=== PATIENT | female | born 1940 | race Caucasian/White ===

== ENCOUNTER 2016-09-20 13:36 | Observation (INO) | payer MEDICARE ==
--- NOTE | 2016-09-20 13:45 | ED.PDOC ---
History of Present Illness - General Chief Complaint: Fever Stated Complaint: Fever, possible dehydration Time Seen by Provider: 09/20/16 13:44 Source: EMS notes reviewed, family Exam Limitations: clinical condition - History of Present Illness Initial Comments: Sonia Cavazos 76 y/o female brought by ems after family called up that she was found to be lethargic and febrile this am after family members came to visit her this am.Ferdinand her caregiver took her [id number].Family stated that she was doing fine yesterday when they went to her house no observe nausea , vomiting but she stated that she was just stating had cough yesterday afternoon and felt cold. Timing/Duration: 4-6 hours Severity: moderate Improving Factors: nothing Worsening Factors: nothing Associated Symptoms: cough, fever/chills Allergies/Adverse Reactions: Allergies Codeine Allergy (Verified 06/17/14 13:02) Sulfa Antibiotics Allergy (Verified 06/17/14 13:02) Morphine Adverse Reaction (Verified 09/20/16 14:19) Other Makes patient "crazy" Home Medications: Ambulatory Orders Carvedilol [Coreg] 25 mg PO BID 09/02/12 Insulin Glargine [Lantus] 20 unit SC HS 09/02/12 Lisinopril 40 mg PO BID 09/02/12 Omeprazole [Prilosec] 20 mg PO BID 09/02/12 Venlafaxine Xr [Effexor Xr] 75 mg PO DAILY 09/02/12 HYDROcodone 10MG/APAP 325MG [[place] 10/325] 1 tab PO Q6HR PRN 06/17/14 Albuterol Sulfate Nebs [Proventil Nebs] 2.5 mg INH BID 09/20/16 Aspirin [Aspirin EC Low Dose] 81 mg PO DAILY 09/20/16 Pregabalin [Lyrica] 50 mg PO DAILY 09/20/16 Probiotic Product [Probiotic-10 Ultimate] 1 cap PO DAILY 09/20/16 fentaNYL PATCH 25 MCG/HR [Duragesic Patch 25 MCG/HR] 25 mcg TD Q72H 09/20/16 Review of Systems - Review of Systems Constitutional: States: see HPI, fever EENTM: States: no symptoms reported Respiratory: States: no symptoms reported Cardiology: States: no symptoms reported Gastrointestinal/Abdominal: States: no symptoms reported Genitourinary: States: no symptoms reported Musculoskeletal: States: back pain - chronic Skin: States: no symptoms reported Neurological: States: other - lethargic Endocrine: States: no symptoms reported Hematologic/Lymphatic: States: no symptoms reported Past Medical History (General) - Patient Medical History Hx Seizures: No Hx Stroke: No Hx Asthma: No Hx of COPD: No Hx Cardiac Disorders: No Hx Congestive Heart Failure: No Hx Pacemaker: No Hx Hypertension: Yes Hx Diabetes: Yes Hx Gastroesophageal Reflux: Yes Hx MRSA: No Surgical History: appendectomy, other - hysterectomy - Vaccination History Hx Tetanus, Diphtheria Vaccination: No Hx Influenza Vaccination: No Hx Pneumococcal Vaccination: No - Social History Hx Tobacco Use: Yes Hx Alcohol Use: No Hx Substance Use: No Hx Substance Use Treatment: No Hx Depression: No Hx Physical Abuse: No Hx Emotional Abuse: No - Activities of Daily Living Patient Lives Alone: Yes Grooming Ability: Standby Assistance Eating (Feeding) Ability: Standby Assistance Toileting Ability: Standby Assistance - Female History Patient : No Family Medical History - Family History Mother Family History: No Known Name: Aries Cavazos Age (years): 53 Living Status: Hx Family Asthma: No Hx Family Congestive Heart Failure: No Hx Family Hypertension: No Hx Family Stroke: No Hx Cardiac Disease: No Hx Family Diabetes: No Hx Family Cancer: No Physical Exam - Physical Exam General Appearance: No apparent distress, Lethargic Eye Exam: bilateral normal Ears, Nose, Throat: hearing grossly normal, normal ENT inspection, normal pharynx Neck: non-tender, full range of motion, supple Respiratory: chest non-tender, lungs clear, normal breath sounds Cardiovascular/Chest: normal peripheral pulses, regular rate, rhythm, no edema, no murmur Peripheral Pulses: radial,right: 2+, radial,left: 2+ Gastrointestinal/Abdominal: normal bowel sounds, non tender, soft, no organomegaly Back Exam: normal inspection, no CVA tenderness, no vertebral tenderness Extremity: normal range of motion, non-tender, normal inspection, no pedal edema , no calf tenderness Neurologic: no motor/sensory deficits, oriented x 3, other - lethargic Skin Exam: normal color Lymphatic: no adenopathy Progress - Results/Orders Results/Orders: Vital Signs - 24 hr 09/20/16 13:43 Temperature 101.7 F H Pulse Rate [ 75 Right Radial] Respiratory 18 Rate Blood Pressure 183/79 [Left Arm] O2 Sat by Pulse 97 Oximetry 09/20/16 13:47 Sodium Chloride 0.9% 1000ML [Ns 1000 ml] 1,000 ml IVS .QD Laboratory Results WBC 8.6 K/mm3 (4.8-10.8) 09/20/16 14:07 RBC 4.63 M/mm3 (4.20-5.40) 09/20/16 14:07 Hgb 12.7 gm/dL (12.0-16.0) 09/20/16 14:07 Hct 37.9 % (36.0-47.0) 09/20/16 14:07 MCV 81.9 fl (81.0-99.0) 09/20/16 14:07 MCH 27.3 pg (27.0-31.0) 09/20/16 14:07 MCHC 33.4 g/dL (33.0-37.0) 09/20/16 14:07 RDW 15.6 % (11.5-14.5) H 09/20/16 14:07 Plt Count 211 K/mm3 (130-400) 09/20/16 14:07 MPV 7.8 fl (7.40-10.4) 09/20/16 14:07 Absolute Neuts (auto) 6.80 K/uL (1.8-6.8) 09/20/16 14:07 Absolute Lymphs (auto) 1.30 K/uL (1.0-3.4) 09/20/16 14:07 Absolute Monos (auto) 0.40 K/uL (0.2-0.8) 09/20/16 14:07 Absolute Eos (auto) 0.00 K/uL (0.0-0.4) 09/20/16 14:07 Absolute Basos (auto) 0.10 K/uL (0.0-0.1) 09/20/16 14:07 Neutrophils % 79.0 % (42.0-78.0) H 09/20/16 14:07 Lymphocytes % 14.8 % (20.0-50.0) L 09/20/16 14:07 Monocytes % 4.9 % (2.0-9.0) 09/20/16 14:07 Eosinophils % 0.4 % (1.0-5.0) L 09/20/16 14:07 Basophils % 0.9 % (0.0-2.0) 09/20/16 14:07 Sodium 133 mmol/L (135-145) L 09/20/16 14:07 Potassium 3.7 mmol/L (3.6-5.0) 09/20/16 14:07 Chloride 98 mmol/L (101-111) L 09/20/16 14:07 Carbon Dioxide 27 mmol/L (21-31) 09/20/16 14:07 Anion Gap 11.7 (12-18) L 09/20/16 14:07 BUN 8 mg/dL (7-18) 09/20/16 14:07 Creatinine 0.71 mg/dL (0.6-1.3) 09/20/16 14:07 BUN/Creatinine Ratio 11.3 (10-20) 09/20/16 14:07 Random Glucose 142 mg/dL (70-105) H 09/20/16 14:07 Serum Osmolality 267.1 mOsm/L (275-295) L 09/20/16 14:07 Lactic Acid 0.9 mmol/L (0.5-2.2) 09/20/16 14:07 Calcium 9.2 mg/dL (8.4-10.2) 09/20/16 14:07 Total Bilirubin 0.4 mg/dL (0.2-1.0) 09/20/16 14:07 AST 21 IU/L (10-42) 09/20/16 14:07 ALT 12 IU/L (10-60) 09/20/16 14:07 Alkaline Phosphatase 63 IU/L (42-121) 09/20/16 14:07 Serum Total Protein 7.9 gm/dL (6.4-8.2) 09/20/16 14:07 Albumin 4.3 g/dl (3.2-5.5) 09/20/16 14:07 Globulin 3.6 gm/dL (2.3-3.5) H 09/20/16 14:07 Albumin/Globulin Ratio 1.2 (1.1-1.9) 09/20/16 14:07 Urine Color Yellow (Yellow) 09/20/16 14:50 Urine Appearance Clear (Clear) 09/20/16 14:50 Urine pH 8.5 (4.5-7.8) H 09/20/16 14:50 Ur Specific [place] 1.020 (1.005-1.030) 09/20/16 14:50 Urine Protein 30 mg/dL 09/20/16 14:50 Urine Glucose (UA) Negative mg/dL (Negative) 09/20/16 14:50 Urine Ketones Negative mg/dL (NEGATIVE) 09/20/16 14:50 Urine Blood Trace-intact (Negative) H 09/20/16 14:50 Urine Nitrite Negative 09/20/16 14:50 Urine Bilirubin Negative (NEGATIVE) 09/20/16 14:50 Urine Urobilinogen 0.2 mg/dL (0.2-1.0) 09/20/16 14:50 Ur Leukocyte Esterase Negative (Negative) 09/20/16 14:50 Urine RBC 0-1 /hpf 09/20/16 14:50 Urine WBC 0 /hpf 09/20/16 14:50 Ur Epithelial Cells 0 /hpf 09/20/16 14:50 Amorphous Sediment 1+ 09/20/16 14:50 Urine Bacteria 0 09/20/16 14:50 - EKG/XRAY/CT EKG: Sinus, LVH Comments: heart rate 72 XRAY: chest - right mid lobe atelectasis/or infiltrate CT Ordered: Yes - head-rt. mastoid effusion no acute hemorrhage or/infarct Departure - Departure Clinical Impression: Transient alteration of awareness, Fever and chills, Diabetes 1.5, managed as type 1 Time of Disposition: 15:40 - d/w Mauri Kan ANP/hospitalist Disposition: Admit Patient Condition: Fair Departure Forms: Patient Portal Self Enrollment Referrals: Oliverio Estrada MD [Primary Care Provider] - 1-2 Weeks Home Medications: Ambulatory Orders Carvedilol [Coreg] 25 mg PO BID 09/02/12 Insulin Glargine [Lantus] 20 unit SC HS 09/02/12 Lisinopril 40 mg PO BID 09/02/12 Omeprazole [Prilosec] 20 mg PO BID 09/02/12 Venlafaxine Xr [Effexor Xr] 75 mg PO DAILY 09/02/12 HYDROcodone 10MG/APAP 325MG [[place] 10/325] 1 tab PO Q6HR PRN 06/17/14 Albuterol Sulfate Nebs [Proventil Nebs] 2.5 mg INH BID 09/20/16 Aspirin [Aspirin EC Low Dose] 81 mg PO DAILY 09/20/16 Pregabalin [Lyrica] 50 mg PO DAILY 09/20/16 Probiotic Product [Probiotic-10 Ultimate] 1 cap PO DAILY 09/20/16 fentaNYL PATCH 25 MCG/HR [Duragesic Patch 25 MCG/HR] 25 mcg TD Q72H 09/20/16
--- NOTE | 2016-09-20 14:04 | RAD ---
History: Fever. Chest x-ray: AP portable film is obtained and compared with 2015 study. Contour of the heart and mediastinum is within normal limits. Questioned minimal atelectasis versus early infiltrate right midlung. No significant pleural effusion. Diffuse osteopenia. IMPRESSION: Questioned minimal atelectasis or early infiltrate right midlung. Follow-up film as indicated clinically. Electronically signed by: Lisette Michael MD 09/20/2016 2:04 PM CDT Workstation: [id number]
--- NOTE | 2016-09-20 14:28 | CT ---
EXAM DESCRIPTION: Head CLINICAL HISTORY: lethargic COMPARISON: None TECHNIQUE: Noncontrast transaxial CT images of the head are obtained from base to vertex. Images are moderately degraded by patient motion artifact despite repeat imaging limiting detailed evaluation. This exam was performed according to our departmental dose-optimization program, which includes automated exposure control, adjustment of the mA and/or kV according to patient size and/or use of iterative reconstruction technique. FINDINGS: The midline structures are not displaced. Sulci are age-appropriate. There are areas of decreased attenuation in the periventricular white matter and the white matter of the centrum semiovale. There is no evidence of mass, mass-effect, hydrocephalus, or acute intracranial hemorrhage. No abnormal extra axial fluid collection is seen. Bone windows show no evidence of depressed skull fracture. The visualized paranasal sinuses are unremarkable. Fluid-filled opacification of right mastoid air cells is seen. IMPRESSION: 1. Age-appropriate atrophy with evidence of old small vessel ischemic type changes seen. 2. No acute abnormality is seen on noncontrast CT of the head. 3. Limited exam secondary to patient motion artifact. 4. Right mastoid effusion. Electronically signed by: Hema Gutiérrez MD 09/20/2016 2:27 PM CDT
[2016-09-20] MEDS: SODIUM CHLORIDE 0.9% 1000ML 1,000 ML IVS PRN (14:37)
[2016-09-20] MEDS ORDERED: ACETAMINOPHEN SUPPOSITORY 650 MG PR ONE (14:38)
--- NOTE | 2016-09-20 15:57 | HP ---
SUPERVISING PHYSICIAN: Siva Webb M.D. CHIEF COMPLAINT: Fever and dehydration. HISTORY OF PRESENT ILLNESS: Ms. Cavazos is a 76 year-old female patient that was brought to the Emergency Department via EMS after family called up and found that the patient was lethargic and running a fever this morning. A family member came to visit her this AM and the granddaughter, the caregiver, took her fasting blood sugar that was 140. Family notes that she had been doing well, was in her normal state of health yesterday when they went to check on her and noted that she had no complaints. No nausea or vomiting but stated that she started having a cough late in the afternoon and felt cold. In the Emergency Department, the patient was found to be quite obtunded at times but arousable. Laboratory studies showed a normal white count at 8.6 with a left shift noted. Chemistries showed a low sodium at 133 with BUN 8, creatinine 0.79, glucose 142. Liver functions showed to be within normal limits. Urinalysis showed just a trace of intact blood, otherwise was within normal limits. Her vital signs in the Emergency Department on arrival she had a temperature of 101.7. She was given Tylenol which did result in the temperature returning to normal. She was seen to be stable. Blood pressure was 160/72. She was satting 96% with a heart rate of 70. She did have a history of chronic back pain and takes [place] on a regular basis 10/325, one usually every 4 to 6 hours as well as she has a Fentanyl patch at 25 mcg. The patient remained lethargic in the Emergency Department so a CT of the head was completed as well as a chest x-ray and per radiology interpretation on the CT of the head without contrast there was note of age-appropriate atrophy with evidence of small vessel ischemic changes with no acute abnormality seen. There was note of a right mastoid effusion. Chest x-ray showed questionable minimal atelectasis or an early infiltrate within the right mid lung. The patient had similar episodes in the past of being lethargic with previous hospitalization. Given the patient's history and current state of lethargy, the patient was admitted to the Medical/Surgical floor for observation to further evaluate her mentation state changes and to attempt to correct her hyponatremia as well as provide some fluids for possible dehydration and further evaluation of the fever with no obvious source of infection identified at time of admission. She was admitted in stable condition. PAST MEDICAL HISTORY: 1. Type 2 diabetes mellitus insulin dependent. 2. Back pain, chronic on both Fentanyl and Hydrocodone. 3. Hypertension. 4. Chronic obstructive pulmonary disease in an active smoker. 5. Chronic tobacco abuse. PAST SURGICAL HISTORY: 1. Appendectomy. 2. Hysterectomy. 3. Cholecystectomy. 4. Left hip replacement in 2013. 5. Cataract removal and lens implant. CURRENT MEDICATIONS: 1. Lantus 20 units subcue h.s. 2. Albuterol nebulizers 2.5 mg twice daily. 3. Duragesic patch 25 mcg per hour topical every 72 hours. 4. Effexor 75 mg daily. 5. Coreg 25 mg twice daily. 6. Lyrica 50 mg daily. 7. Prilosec 20 mg daily. 8. Lisinopril 40 mg twice daily. 9. Probiotic 1 daily. 10. Aspirin 81 mg daily. 11. [place] 10/325 one table every 6 hours p.r.n. for pain. ALLERGIES: CODEINE, SULFA ANTIBIOTICS AND MORPHINE. FAMILY HISTORY: Significant for diabetes and cancer. SOCIAL HISTORY: The patient has smoked for well over 40 years or greater with a 1 pack per day history. She is currently an active smoker. She denies any significant alcohol consumption on admission. She is a and lives in [place]. She worked formerly as a toll ticket clerk. She denies any illicit drug use. REVIEW OF SYSTEMS: CONSTITUTIONAL: As noted in the History of Present Illness, fever. HEENT: Positive for right ear ach, negative headaches RESPIRATORY: Denies any history of pleurisy, hemoptysis, pulmonary embolisms or pneumonia. She does have a history of being a chronic smoker with a cough with intermittent wheezing and asthma-like symptoms intermittently for which she takes Albuterol for. GASTROINTESTINAL: Denies any nausea, vomiting, diarrhea or constipation. GENITOURINARY: She does report polyuria but denies any dysuria, hematuria or other urinary symptoms. NEUROLOGIC: As noted in the History of Present Illness, lethargic. ENDOCRINE: Known history of diabetes for well over 13 years requiring insulin. PHYSICAL EXAMINATION: VITAL SIGNS: In the Emergency Department on arrival temperature was 101.7. After Tylenol and admission to the Medical/Surgical floor temperature was 99.8. Pulse 75, blood pressure 183/79, respirations 18. She was satting 97% on room air. Admission weight 70.3 kg. GENERAL: Appears to be in no distress, although she is lethargic. She does answer questions when prompted. She appears to be well nourished, although she does look a little dehydrated. HEENT: Tympanic membranes obscured by cerumen bilaterally. Oropharynx is pink with oral mucosa being dry and lips being cracked. NECK: Supple without any tenderness. Full range of motion. There was no jugular venous distention. CHEST: Lungs are clear to auscultation without any rhonchi, wheezing or rales. CARDIOVASCULAR: Regular rate and rhythm without appreciable murmurs, gallops, or rubs. ABDOMEN: Obese but soft, non-tender. Positive bowel sounds. EXTREMITIES: No clubbing, cyanosis or edema. NEUROLOGIC: She is lethargic but easily arousable and oriented. Cranial nerves II-XII are grossly intact. Facial features are symmetric. Extraocular movements are within normal limits. There is no nystagmus. There is no obvious motor or sensory deficit. She does remain oriented times three. LABORATORY: CBC showed to be within normal limits except for early left shift noted. White count was 8.6, hemoglobin 12.7, hematocrit 37.9. Chemistries showed low sodium of 133 with potassium 3.8, BUN 8, creatinine 0.7, glucose 142. Liver functions showed to be within normal limits. Calcium 9.2, lactic acid 0.9, magnesium 2.0, ammonia 14, TSH 1.06. Urinalysis showed just a trace of intact blood on dipstick, otherwise within normal limits. Toxicology screen included salicylates and Acetaminophens all within normal limits. Urine drug screen was negative for all substances tested, including opioids and Benzodiazepines. MICROBIOLOGY: Urine culture is pending. Sputum culture is pending. Blood culture is pending. Group A Strep rapid screen by PCR is pending. Influenza A and B by PCR is pending. RADIOLOGY: CT of the head without contrast per radiology interpretation showed age-appropriate atrophy with evidence of small vessel ischemic changes. There was no acute abnormality seen on CT of the head without contrast. There was mention of right mastoid effusion. Chest x-ray per radiology interpretation showed questionable minimal atelectasis versus infiltrate within the right mid lung. ASSESSMENT: 1. Acute altered mental status with fever without any obvious source of infection other than findings on CT of the head that show right mastoid effusion possible right acute otitis media. The patient also has a history of extensive [place] and Fentanyl use for chronic pain which possibly could be contributing to this altered mental status although her urine drug screen was negative for opioids and any other sedating medications such as Benzodiazepines. 2. Febrile illness with possible right ear infection with no other obvious signs of infection noted. 3. Electrolyte imbalance with hyponatremia possibly contributing to some of her mental status change. 4. Moderate dehydration possibly exacerbating mental status change. 5. Type 2 diabetes mellitus on insulin. 6. Hypertension. 7. Gastroesophageal reflux disease. 8. Chronic obstructive pulmonary disease in a chronic smoker with radiographic studies concerning for early development of pneumonia noted in the right middle lung. Will initiate antibiotic therapy. 9. Chronic tobacco abuse. 10. History of chronic back pain. 11. Bilateral cerumen impaction PLAN: The patient will be placed in Observation tonight for further treatment and evaluation. She will be cultured to include, if possible, sputum as well as blood cultures, urine, Influenza, Strep A testing. Will initiate antibiotics given the elevated temperature and that she is lethargic. Will plan to take her Fentanyl patch off today and allow her to hopefully recover some mental status if this is related to over usage of her narcotics. Will restart her medications, except for holding the Fentanyl and [place] upon admission until she becomes much more alert. She does take Lantus 20 units at night. I will attempt to get this from home. If not, will substitute Levemir as appropriate. She will be on IV antibiotics to include Rocephin for possible treatment of infectious process of a right ear infection. She will be provided breathing treatments as needed and be on telemetry, and have every 4 hours neuro checks. Anticipate length of stay to be 1 to 2 days. Until discharge, will continue to follow the patient closely and treat appropriately. Once the patient is discharged, she will need close clinical followup with her primary care provider, Dr. Estrada. #[id number] CLAUDIA
[2016-09-20] MEDS ORDERED: GLUCAGON INJ 1 MG VIAL SUBCU PRN (16:08)
[2016-09-20] MEDS ORDERED: ACETAMINOPHEN 325 MG TAB PO PRN (16:08)
[2016-09-20] MEDS ORDERED: SODIUM CHLORIDE 0.9% (FLUSH) 10 ML SYG IV PRN (16:08)
[2016-09-20] MEDS ORDERED: DEXTROSE 50% 25 GM/50 ML SYG IV PRN (16:08)
[2016-09-20] MEDS ORDERED: IV SET AND CAP CHANGE INJ INJ SCH (16:30)
[2016-09-20] MEDS ORDERED: KCL 20MEQ/0.45% NS 1,000 ML IVS PRN (16:38)
[2016-09-20] MEDS: INSULIN LISPRO 100 UNITS/ML PEN SUBCU SCH ×2 (17:19→21:16)
[2016-09-20] MEDS ORDERED: KCL 20MEQ/0.45% NS 1,000 ML IVS ONE (19:39)
[2016-09-20] MEDS ORDERED: OMEPRAZOLE CAP 20 MG CAP PO SCH (21:00)
[2016-09-20] MEDS ORDERED: NON-FORMULARY MEDICATION 1 EA MIS (Lisinopril [Lisinopril] 40 MG) PO SCH (21:00)
[2016-09-20] MEDS ORDERED: INSULIN GLARGINE 20 UNIT SC SCH (21:00)
[2016-09-20] MEDS ORDERED: SODIUM CHLORIDE 0.9% (FLUSH) 10 ML SYG IV SCH (21:00)
[2016-09-20] MEDS ORDERED: cefTRIAXone SODIUM 1 GM in SODIUM CHL 0.9% 50ML MIN-BAG+ 50 ML IVPB SCH (21:00)
[2016-09-20] MEDS ORDERED: NON-FORMULARY MEDICATION 1 EA MIS (Carvedilol [Coreg] 25 MG) PO SCH (21:00)
[2016-09-20] MEDS ORDERED: LISINOPRIL 10 MG TAB ONE (21:06)
[2016-09-20] MEDS ORDERED: CARVEDILOL 12.5 MG TAB ONE (21:06)
[2016-09-20] MEDS ORDERED: cefTRIAXone SODIUM 1 GM VIAL ONE (21:07)
[2016-09-20] MEDS ORDERED: SODIUM CHL 0.9% 50ML MIN-BAG+ 50 ML IVPB ONE (21:07)
[2016-09-20] MEDS: ALBUTEROL SULFATE 2.5 MG/3 ML VIAL NEB SCH (22:40)
[2016-09-21] MEDS ORDERED: CARVEDILOL 12.5 MG TAB ONE (07:14)
[2016-09-21] MEDS ORDERED: LISINOPRIL 10 MG TAB ONE (07:14)
[2016-09-21] MEDS ORDERED: PREGABALIN 25 MG CAP ONE (07:15)
[2016-09-21] MEDS ORDERED: VENLAFAXINE HCL TAB 75 MG TAB ONE (07:15)
[2016-09-21] MEDS ORDERED: INSULIN DETEMIR 100 UNITS/ML PEN SUBCU ONE (07:18)
[2016-09-21] MEDS: INSULIN LISPRO 100 UNITS/ML PEN SUBCU SCH ×4 (07:43→21:07)
[2016-09-21] MEDS: SODIUM CHLORIDE 0.9% 1000ML 1,000 ML IVS PRN ×2 (07:46→17:16)
[2016-09-21] MEDS: ALBUTEROL SULFATE 2.5 MG/3 ML VIAL NEB SCH ×2 (08:07→20:11)
[2016-09-21] MEDS: ASPIRIN EC 81 MG TAB PO SCH ×2 (08:58→10:40)
[2016-09-21] MEDS: VENLAFAXINE XR 75 MG CAP PO SCH (08:58)
[2016-09-21] MEDS: PREGABALIN 25 MG CAP PO SCH ×2 (08:58→10:39)
[2016-09-21] MEDS: CARVEDILOL 12.5 MG TAB PO SCH ×3 (08:58→20:26)
[2016-09-21] MEDS: OMEPRAZOLE CAP 20 MG CAP PO SCH ×2 (08:58→16:49)
[2016-09-21] MEDS: LISINOPRIL 10 MG TAB PO SCH ×3 (08:59→20:27)
--- NOTE | 2016-09-21 09:31 | RAD ---
Study: Single Frontal View of the Chest. Indication:fever Comparison: September 20, 2016. Impression: Heart size upper limits of normal. Lungs clear. No acute osseous abnormality. Electronically signed by: Guru Rasmussen MD 09/21/2016 9:31 AM CDT Workstation: [id number]
--- NOTE | 2016-09-21 10:39 | PCM.CORE ---
Physician DVT/VTE - Nurse DVT Assessment & Total Each Risk Factor Represents 3 Points: Age over 75 years Each Risk Factor Represents 1 Point: Hx of smoking past year Each Risk Factor is 1 Point: Obesity (BMI >25) DVT Assessment Score: 5 - 5 or more Very High Risk Treatments: Early Ambulation *, Sequential Compression Device Pharmacological: Enoxaparin 40mg SQ Daily
[2016-09-21] MEDS ORDERED: cefTRIAXone SODIUM 1 GM VIAL ONE ×2 (11:12→22:37)
[2016-09-21] MEDS ORDERED: SODIUM CHL 0.9% 50ML MIN-BAG+ 50 ML IVPB ONE ×2 (11:12→22:36)
[2016-09-21] MEDS: cefTRIAXone SODIUM 1 GM in SODIUM CHL 0.9% 50ML MIN-BAG+ 50 ML IVPB SCH ×2 (11:13→22:44)
[2016-09-21] MEDS: ENOXAPARIN SODIUM 40 MG/0.4 ML SYG SUBCU SCH (11:14)
[2016-09-21] MEDS: BIFIDOBACTERIUM INFANTIS 4 MG CAP PO SCH (11:18)
--- NOTE | 2016-09-21 18:58 | PN ---
DATE: 09/21/16 SUPERVISING PHYSICIAN: Siva Webb M.D. SUBJECTIVE: The patient continues to be somewhat lethargic despite IV fluids and initiation of antibiotic therapy, although she remains afebrile. It was noted that she still continues to be hyponatremic which may be contributing to her symptomology. She has not had any diarrhea, nausea or vomiting. OBJECTIVE: VITAL SIGNS: T max 99.7, pulse 77, blood pressure 145/62, respirations 18, satting 94% on room air. I's and O's show a negative balance of 60 with 1240 in, 1300 out. She has had 1 bowel movement. Weight is 59.4 kg. CHEST: Clear to auscultation bilaterally. HEART: Regular rate and rhythm. ABDOMEN: Soft, non-tender. Positive bowel sounds. EXTREMITIES: No clubbing, cyanosis or edema. NEUROLOGIC: She is slow to respond, somewhat lethargic but will respond to verbal stimulus and follow commands. There is no notable weakness on assessment or any facial drooping, although she is not very verbal at this point. LABORATORY: White count 8.9, hemoglobin 11.8, hematocrit 34.8, platelet count 194,000. Differential shows to be without a left shift. Chemistries shows sodium 130, potassium 3.6, BUN 8, creatinine 0.6, glucose is 124 to 228. MICROBIOLOGY: Urine culture showed no growth at 24 hours. Blood cultures remain negative. RADIOLOGY: Repeat chest x-ray this morning per radiology interpretation shows the heart size within upper limits of normal. Lungs were clear. There were no acute osseous abnormalities noted. ASSESSMENT: 1. Acute altered mental status with fever on admission without any obvious source of infection other than findings on CT of the head showing a right mastoid effusion possibly related to right acute otitis media. The patient does have an extensive history of [place] and Fentanyl use for chronic back pain which possibly could be contributing on admission to her altered mental status, although drug screen was negative and the pain medicines have not been administered since admission. 2. Febrile illness on admission felt to be secondary to right ear infection with no other obvious signs of infection noted with the patient being afebrile since admission. 3. Electrolyte imbalance with moderate hyponatremia more likely contributing to to the decreased mental status change being persistent despite IV therapy. 4. Moderate dehydration on admission felt to be exacerbating the mental status change showing some improvement after infusion of IV therapy. 5. Type 2 diabetes mellitus on insulin, stable. 6. Hypertension, stable. 7. Gastroesophageal reflux disease. 8. Chronic obstructive pulmonary disease in a chronic smoker with radiographic studies initially on admission concerning for possible pneumonia versus atelectasis but on repeat exam lungs showed to be clear. 9. Chronic tobacco abuse. 10. History of chronic back pain on chronic narcotics. 11. Bilateral cerumen impaction. PLAN: I was hoping to discharge the patient today, but she persists with a decreased mental status and again it is felt to be possibly related to otitis media more likely ongoing hyponatremia. Again, the persistent hyponatremia, her IV fluids will consist of normal saline with close clinical monitoring. In the morning, will repeat a BMP. Will continue to hold off on any narcotics or any other sedating medications. She was started back on Levemir as Lantus was not available from the family. Her blood sugars are showing to be fairly stable. Will continue with close monitoring neurologically. Anticipate hopefully discharging tomorrow. If not, certain we will need to repeat a CT of the head. Until then, will continue to monitor closely and treat appropriately. #[id number] and [id number] [facility]
[2016-09-21] MEDS ORDERED: INSULIN DETEMIR 100 UNITS/ML PEN SUBCU SCH (21:00)
[2016-09-22] MEDS: SODIUM CHLORIDE 0.9% 1000ML 1,000 ML IVS PRN (01:14)
[2016-09-22] MEDS: OMEPRAZOLE CAP 20 MG CAP PO SCH (06:34)
[2016-09-22] MEDS ORDERED: SODIUM CHL 0.9% 50ML MIN-BAG+ 50 ML IVPB ONE (08:04)
[2016-09-22] MEDS ORDERED: cefTRIAXone SODIUM 1 GM VIAL ONE (08:04)
[2016-09-22] MEDS: INSULIN LISPRO 100 UNITS/ML PEN SUBCU SCH ×2 (08:07→12:10)
[2016-09-22] MEDS: ALBUTEROL SULFATE 2.5 MG/3 ML VIAL NEB SCH (08:16)
[2016-09-22 08:19] VITALS: O2SAT 97
[2016-09-22] MEDS ORDERED: SODIUM CHLORIDE 0.9% (FLUSH) 10 ML SYG IV ONE (08:21)
[2016-09-22] MEDS ORDERED: POTASSIUM CHLORIDE 20 MEQ TAB ONE (08:27)
[2016-09-22] MEDS: PREGABALIN 25 MG CAP PO SCH (08:39)
[2016-09-22] MEDS: CARVEDILOL 12.5 MG TAB PO SCH (08:40)
[2016-09-22] MEDS: LISINOPRIL 10 MG TAB PO SCH (08:40)
[2016-09-22] MEDS: VENLAFAXINE XR 75 MG CAP PO SCH (08:40)
[2016-09-22] MEDS: ASPIRIN EC 81 MG TAB PO SCH (08:40)
[2016-09-22] MEDS: ENOXAPARIN SODIUM 40 MG/0.4 ML SYG SUBCU SCH (08:40)
[2016-09-22] MEDS: BIFIDOBACTERIUM INFANTIS 4 MG CAP PO SCH (08:40)
[2016-09-22] MEDS ORDERED: POTASSIUM CHLORIDE 20 MEQ TAB PO SCH (08:57)
[2016-09-22] MEDS: cefTRIAXone SODIUM 1 GM in SODIUM CHL 0.9% 50ML MIN-BAG+ 50 ML IVPB SCH (10:20)
[2016-09-22 14:29] VITALS: BP 163/72; TEMP 97.6
[2016-09-23] MEDS ORDERED: POTASSIUM CHLORIDE 20 MEQ TAB PO SCH (07:30)
--- NOTE | 2016-09-25 08:41 | DS ---
SUPERVISING PHYSICIAN: Abraham Kim MD DISCHARGE DIAGNOSIS: 1. Acute altered mental status on admission with fever without any obvious source of infection other than findings on CT of the head showing right mastoid effusion likely related to right acute otitis media. The patient does have a history of extensive [place] and fentanyl use for chronic pain which possibly could have contributed to her altered mental status prior to admission, although her urine drug screen was negative for pain medications and none had been administered since admission with her showing improvement. 2. Febrile illness on admission, felt to be secondary to right ear infection with no other obvious signs of infection noted with the patient being afebrile since admission and improved. 3. Electrolyte imbalance with hyponatremia, likely contributing to her mental status change and persistent despite IV therapy, showing improvement after normal saline infusion. 4. Moderate dehydration on admission, exacerbating mental status change, improved after infusion of normal saline and continued IV therapy. 5. Type 2 diabetes mellitus on insulin, stable. 6. Hypertension, stable. 7. Gastroesophageal reflux disease. 8. Chronic obstructive pulmonary disease in a chronic smoker with radiographic studies on admission showing possible atelectasis, but on repeat exam, lungs were clear with no signs of pneumonia. 9. Chronic tobacco abuse. 10. History of chronic back pain on chronic narcotics. 11. Bilateral cerumen impaction with underlying right otitis media. HISTORY OF PRESENT ILLNESS: Ms. Cavazos is a 76-year-old female patient that was brought to the Emergency Department via EMS after family called and found that the patient was lethargic and running a fever. A family member came to visit her on the morning of admission and the granddaughter, the caregiver, took her fasting blood sugar and it was 140. Family notes that she had been doing well, was in her normal state of health prior to admission when they went to check on her and noted that she had no complaints. There was no mention of nausea or vomiting, but stated that she started having a cough late that afternoon and felt cold. In the Emergency Department, the patient was found to be quite obtunded at times but arousable. Laboratory studies showed a normal white count at 8.6 with a left shift noted. Chemistries showed a low sodium at 133 with BUN 8, creatinine 0.79, glucose 142. Liver functions showed to be within normal limits including ammonia. Urinalysis showed just a trace of intact blood, otherwise was within normal limits. Her vital signs in the Emergency Department on arrival showed she had a temperature of 101.7. She was given Tylenol, which did result in the temperature returning to normal. She was found to be stable. Blood pressure was 160/72. She was satting 96% with a heart rate of 70. She does have a history of chronic back pain and takes [place] on a regular basis 10/325, one usually every 4 to 6 hours as well as she has a fentanyl patch at 25 mcg per hour. The patient remained lethargic in the Emergency Department, so a CT of the head was completed as well as a chest x- ray and per radiology interpretation on the CT of the head without contrast, there was note of age-appropriate atrophy with evidence of small vessel ischemic changes with no acute abnormality seen. There was note of a right mastoid effusion. Chest x-ray showed questionable minimal atelectasis or an early infiltrate within the right mid lung. The patient had similar episodes in the past of being lethargic with previous hospitalization. Given the patient 's history and current state of lethargy, the patient was admitted to the Medical/Surgical floor for observation to further evaluate her mentation state changes and to attempt to correct her hyponatremia as well as provide some fluids for possible dehydration and further evaluation of the fever with no obvious source of infection identified at time of admission. She was admitted in stable condition. LABORATORY: White count on admission was 8.6 with discharge 8.9. Hemoglobin and hematocrit were stable at 11.8 and 34.8 at discharge. Platelet count normal at 194,000. Differential did initially show a left shift. This resolved prior to discharge. Her chemistries showed a low sodium on admission of 133, which did drop ultimately to a low of 130, but after normal saline infusion, normalized to 135 prior to discharge. Potassium on discharge was low at 3.0, but she was given supplementation. BUN 9, creatinine 0.79. Glucoses were stable, anywhere from 124 to 209. Liver functions on admission were within normal limits with a normal ammonia of 14, calcium 9.2, magnesium 2.0, TSH 1.06. Urinalysis showed just a trace of blood on dipstick, otherwise within normal limits. Toxicology screen showed negative for all substances tested as well as salicylates were less than 4, acetaminophen 10.8. MICROBIOLOGY: Urine culture showed no growth at 48 hours. Two sets of blood cultures remained negative at 4 days. Group A Strep rapid screen by PCR is pending. Influenza A and B by PCR was negative. RADIOLOGY: Chest x-ray in the Emergency Room per radiologic interpretation showed question of minimal atelectasis or early infiltrate within the mid lung on the right side. This was repeated prior to discharge and per radiologic interpretation lungs were clear. There were no acute osseous noted. CT of the head without contrast per radiologic interpretation showed age-appropriate atrophy with evidence of old small vessel ischemic changes. There was no acute abnormality seen on CT of the head without contrast. There was mention of right mastoid effusion. HOSPITAL COURSE: Ms. Cavazos was admitted as noted in history of present illness on 09/20/16 for acute mental status change with a fever. She was cultured in regards to urine, blood, all of which were negative. She was started on normal saline, which did help normalize her sodium and by the day of discharge, the patient was back to her baseline mental status. We did hold her fentanyl and [place] through admission and she showed good improvement. The family felt she was back to her baseline status prior to discharge. She was started on antibiotic therapy initially with Rocephin for acute right tomorrow given the findings on CT. She remained stable. PLAN: Ms. Cavazos was discharged on 09/22/16 to have close clinical followup with her primary care provider, Dr. Estrada, as scheduled. She was encouraged to stop smoking and encouraged to drink plenty of fluids to prevent dehydration. She was to resume her home medications except to hold her Duragesic patch until seen in followup by Dr. Estrada. She was encouraged to be careful when taking her pain medications to prevent over sedation and falls. She was to do no driving until seen in followup by Dr. Estrada and return to the hospital should she have any concerning symptoms or call Dr. Estrada's office with any questions. The patient will probably need to be at least seen in followup in regards to the cerumen impaction and possibly need ENT referral in regards to the mastoid effusion on the right side. At discharge, new prescriptions included Omnicef 300 mg twice daily, #20. All other medications were to resume as prior to admission except to hold her Duragesic patch until seen in followup. Diet at discharge was to be diabetic diet. Activities as tolerated. Condition was stable and improved. #[id number] [facility]
== END 2016-09-22 15:15 | disposition home or self-care (01) ==
LOC: ER 13:36 → MS 15:56
PROVIDERS: ADMIT Nurse Practitioner Family; ATTEND Nurse Practitioner Family
DX: R41.82 Altered mental status, unspecified (principal); H70.91 Unspecified mastoiditis, right ear; H66.91 Otitis media, unspecified, right ear; G89.29 Other chronic pain; R50.9 Fever, unspecified; E87.1 Hypo-osmolality and hyponatremia; E86.0 Dehydration; E11.9 Type 2 diabetes mellitus without complications; I10 Essential (primary) hypertension; K21.9 Gastro-esophageal reflux disease without esophagitis; J44.9 Chronic obstructive pulmonary disease, unspecified; F17.210 Nicotine dependence, cigarettes, uncomplicated; H61.23 Impacted cerumen, bilateral; M54.9 Dorsalgia, unspecified; Z79.891 Long term (current) use of opiate analgesic; Z79.4 Long term (current) use of insulin; Z79.82 Long term (current) use of aspirin; Z79.899 Other long term (current) drug therapy; Z88.2 Allergy status to sulfonamides; Z88.6 Allergy status to analgesic agent; Z96.642 Presence of left artificial hip joint; Z90.49 Acquired absence of other specified parts of digestive tract; Z90.710 Acquired absence of both cervix and uterus; Z98.49 Cataract extraction status, unspecified eye; Z96.1 Presence of intraocular lens; Z83.3 Family history of diabetes mellitus
CPT/HCPCS: 36415 ×5; 36416 ×5; 70450; 71010 ×2; 80048 ×2; 80053; 80307; 80329 ×2; 81001; 82140; 82948 ×8; 83605; 83735; 84443; 85025 ×2; 87040 ×2; 87086; 87502; 93005; 94640 ×4; 94760 ×4; 96361 ×3; 96365; 96366 ×3; 96367; 96372 ×2; 96376; 97116; 97162; 99284; 99406; G0378; G8978; G8979; G8980; J0696 ×4; J1650 ×2; J1815 ×2; J3480; J7030 ×4; J7050 ×4; J7611 ×4

== ENCOUNTER → 2016-12-21 | Outpatient (CLI) | payer MEDICARE ==
--- NOTE | 2016-12-23 13:33 | RAD ---
EXAM DESCRIPTION: Hip,Left 2 Views CLINICAL HISTORY: 76 years, Female, PAIN IN LEFT HIP COMPARISON: Comparison study November 09, 2015 FINDINGS: Femoral nail and compression screw stable appearance. Intertrochanteric fracture shows some sclerosis inferior medially radiographically nonspecific change. Small chronic calcifications in the soft tissues lateral to the hip. Some arterial calcifications. IMPRESSION: Stable appearance of left hip fracture transfixed by femoral nail and compression screw. No findings of hardware failure. Bones mildly demineralized. No significant difference compared to 2016 Electronically signed by: Samuel Feldman MD 12/23/2016 1:32 PM CDT
== END | disposition home or self-care (01) ==
LOC: RAD 09:02
PROVIDERS: ATTEND Orthopaedic Surgery
DX: M25.552 Pain in left hip (principal)

== ENCOUNTER → 2016-12-24 | Outpatient (CLI) | payer MEDICARE ==
--- NOTE | 2016-12-24 15:45 | MRI ---
EXAM DESCRIPTION: Lumbar Spine w/o Contrast CLINICAL HISTORY: RADICULOPATHY COMPARISON: None Available. TECHNIQUE: MRI of the lumbar spine is performed according to our usual protocol with axial and sagittal multi sequence imaging. FINDINGS: MRI of the lumbar spine demonstrates moderate dextroscoliosis of the mid lumbar spine with changes centered at approximately the L3 vertebral body. Loss of vertebral height and compression deformity of L1 with what appears to be an anterior superior corner fracture with marrow edema is present. Edema is also present in the right L5 pedicle raising the possibility of a subtle fracture at the base of the pedicle or stress reaction. The conus is at the T12-L1 level. Moderate infrarenal aortic aneurysm is present. This measures 2.9 cm in diameter. Three year follow-up examination sonographically for reassessment is recommended. Paraspinous structures are otherwise unremarkable. Multilevel disc desiccation with disc space narrowing most prominent at L2-3 noted. L1-2: the disc is well hydrated. There is no loss of height. There is no bulging. The facets are unremarkable with no significant hypertrophy. There is no stenosis or impingement. L2-3: Advanced disc degenerative changes with fatty endplate changes and modest annular bulge with adequate central canal and right lateral recess and neural foramen. There is moderate left-sided facet arthropathy and combined with scoliosis moderate narrowing of the left L2 neural foramen. L3-4: Disc desiccation with broad-based annular bulge with central and left cerebellar parasagittal disc protrusion with a small extruded fragment extending cephalad just to the left of midline and thecal sac lower limits of normal with moderate facet arthropathy. Distorted but adequate right neural foramen and moderate narrowing of the left neural foramen. L4-5: Disc desiccation with generalized annular bulge and advanced facet arthropathy with thecal sac lower range of normal. Adequate left neural foramen with moderately narrowed right neural foramen. A component of a far right lateral disc protrusion with a small extruded disc fragment extending inferior to the disc space in the right lateral recess at the upper L5 level noted. L5-S1: Disc desiccation with annular bulge with adequate canal and left neural foramen with moderate facet arthropathy, worse on the right. Right neural foramen is modestly narrowed. Mild loss of L5 vertebral height with impaction of the superior endplate and anterior superior corner fracture with deformity. IMPRESSION: 1. Dextroscoliosis of the spine centered at the L3 level with diffuse disc degeneration and desiccation. 2. Moderate L5 compression deformity with marrow edema consistent with an acute compression deformity and deformity of the anterior superior corner of the vertebral body consistent with a superior endplate corner fracture. No retropulsed bone noted. 3. 2.9 cm infrarenal aortic aneurysm. Three year follow-up examination for reevaluation sonographically is recommended 4. Thecal sac lower limits of normal at L3-4 and L4-5 with left parasagittal disc protrusion with small cephalad extruded fragment at L3-4 and right far lateral disc protrusion and extruded fragment extending inferiorly at L4-5. Modest neural compression at these levels on each side is suspected. Electronically signed by: Siva Russell MD 12/24/2016 3:43 PM CDT
== END | disposition home or self-care (01) ==
LOC: MRI 10:38
PROVIDERS: ATTEND Orthopaedic Surgery
DX: M41.86 Other forms of scoliosis, lumbar region (principal); M54.16 Radiculopathy, lumbar region

== ENCOUNTER → 2017-02-04 | Outpatient (CLI) | payer MEDICARE ==
--- NOTE | 2017-02-04 12:45 | RAD ---
EXAM DESCRIPTION: Lumbar spine, 5 radiographs CLINICAL HISTORY: Fifth lumbar vertebral fracture FINDINGS/ IMPRESSION: Previous lumbar spine MRI demonstrated a superior endplate vertebral body fracture L5. Fracture of L5 seen on today's study with sclerosis and endplate osteophyte ridging. No acute fracture of the lumbar spine Dextroscoliosis on a degenerative basis Severe disc degeneration L2-3 similar to previous MRI. Degenerative facet disease bilaterally most significantly affecting L3-4 through L5-S1 Sacral neural foraminal lines are intact. Mild osteoarthritis bilateral sacroiliac joints No lytic or blastic bony lesion. Electronically signed by: Siva Oleary MD 02/04/2017 12:44 PM CDT
== END | disposition home or self-care (01) ==
LOC: RAD 08:59
PROVIDERS: ATTEND Orthopaedic Surgery
DX: S32.058D Other fracture of fifth lumbar vertebra, subsequent encounter for fracture with routine healing (principal); X58.XXXA Exposure to other specified factors, initial encounter

== ENCOUNTER 2017-02-18 18:01 | Emergency (ER) | payer MEDICARE ==
--- NOTE | 2017-02-18 18:48 | ED.PDOC ---
History of Present Illness - General Chief Complaint: Abdominal Pain Stated Complaint: abdominal pain Time Seen by Provider: 02/18/17 18:47 Information Source: patient Exam Limitations: no limitations - History of Present Illness Initial Comments: Ms. Sonia Cavazos 76 y/o female stated that she had experienced sharp abdominal pains since this am no nausea vomitin,able to eat breakfast and lunch a little bit but also had one episode of loose stool. Stated had diarrhea for 3 days last week but got better.No recent antibiotic use,no illcontact,no fever. Abdominal Pain Onset Location: other - left side abdomen Pain Radiation: no radiation Quality: moderate, intermittent, sharpness Timing/Duration: 7-24 hours Improving Factors: nothing Worsening Factors: nothing Associated Symptoms: diarrhea Review of Systems - Review of Systems Constitutional: States: no symptoms reported EENTM: States: no symptoms reported Respiratory: States: no symptoms reported Cardiology: States: no symptoms reported Gastrointestinal/Abdominal: States: see HPI Past Medical History (General) - Patient Medical History Hx Seizures: No Hx Stroke: No Hx Asthma: No Hx of COPD: Yes Hx Congestive Heart Failure: No Hx Pacemaker: No Hx Hypertension: Yes Hx Diabetes: Yes Hx Gastroesophageal Reflux: Yes Hx MRSA: No Surgical History: appendectomy, cholecystectomy, other - hip,hysterectomy - Vaccination History Hx Tetanus, Diphtheria Vaccination: No Hx Influenza Vaccination: No Hx Pneumococcal Vaccination: No - Social History Hx Tobacco Use: Yes Hx Alcohol Use: No Hx Substance Use: No Hx Substance Use Treatment: No Hx Depression: No Hx Physical Abuse: No Hx Emotional Abuse: No - Activities of Daily Living Patient Lives Alone: Yes Grooming Ability: Independent Eating (Feeding) Ability: Independent Toileting Ability: Independent - Female History Patient : No Family Medical History - Family History Mother Family History: No Known Name: Aries Cavazos Age (years): 53 Living Status: Hx Family Asthma: No Hx Family Congestive Heart Failure: No Hx Family Hypertension: No Hx Family Stroke: No Hx Cardiac Disease: No Hx Family Diabetes: Yes - parents Hx Family Cancer: No Physical Exam - Physical Exam General Appearance: Alert, No apparent distress Eyes, Ears, Nose, Throat Exam: PERRL/EOMI, normal ENT inspection, pharynx normal Neck: non-tender, supple, normal inspection Respiratory: lungs clear, normal breath sounds Cardiovascular/Chest: normal peripheral pulses, regular rate, rhythm, no murmur Peripheral Pulses: No deficit Gastrointestinal/Abdominal: soft, no organomegaly, tenderness - left side abdomen Back Exam: no CVA tenderness, no vertebral tenderness Extremity: normal range of motion, non-tender, normal inspection, no calf tenderness Neurologic: no motor/sensory deficits, alert, oriented x 3 Skin Exam: normal color, warm/dry Lymphatic: no adenopathy Progress - Progress Progress: 02/18/17 20:55 Vital Signs - 8 hr 02/18/17 02/18/17 02/18/17 18:02 19:10 20:15 Temperature 100.4 F H 98.6 F Pulse Rate [ 81 83 78 Right Radial] Respiratory 16 16 18 Rate Blood Pressure 188/79 154/90 189/84 [Right Arm] O2 Sat by Pulse 96 96 96 Oximetry - Results/Orders Results/Orders: Laboratory Tests 02/18/17 02/18/17 02/18/17 19:59 19:59 20:10 WBC 7.4 RBC 4.59 Hgb 12.2 Hct 36.5 MCV 79.5 L MCH 26.7 L MCHC 33.5 RDW 16.9 H Plt Count 225 MPV 7.6 Absolute Neuts (auto) 5.10 Absolute Lymphs (auto) 1.60 Absolute Monos (auto) 0.50 Absolute Eos (auto) 0.10 Absolute Basos (auto) 0.00 Neutrophils % 68.8 Lymphocytes % 22.2 Monocytes % 6.5 Eosinophils % 1.9 Basophils % 0.6 Sodium 128 L Potassium 3.8 Chloride 96 L Carbon Dioxide 25 Anion Gap 10.8 L BUN 9 Creatinine 0.76 BUN/Creatinine Ratio 11.8 Random Glucose 232 H Serum Osmolality 263.2 L Calcium 8.7 Total Bilirubin 0.4 AST 17 ALT 12 Alkaline Phosphatase 54 Serum Total Protein 6.5 Albumin 3.6 Globulin 2.9 Albumin/Globulin Ratio 1.2 Urine Color Yellow Urine Appearance Clear Urine pH 7.0 Ur Specific [place] 1.010 Urine Protein Negative Urine Glucose (UA) Negative Urine Ketones Negative Urine Blood Trace-intact H Urine Nitrite Negative Urine Bilirubin Negative Urine Urobilinogen 0.2 Ur Leukocyte Esterase Negative Urine RBC 0-1 Urine WBC 0-1 Ur Epithelial Cells 1-3 Urine Bacteria Rare - EKG/XRAY/CT CT Ordered: Yes - abdomen-no acute abnormality;splenic art. aneurysm-unchanged Departure - Departure Clinical Impression: Abdominal cramps Diarrhea Qualifiers: Diarrhea type: unspecified type Qualified Code(s): R19.7 - Diarrhea, unspecified Time of Disposition: 22:03 Disposition: Discharge to Home or Self Care Departure Forms: ED Discharge - Pt. Copy, Patient Portal Self Enrollment Instructions: DI for Abdominal Pain-Adult, Probiotics May Decrease Intensity and Duration of Diarrhea Due to Infection, Diarrhea, DI for Diarrhea and Traveler's Diarrhea -- Adult Diet: other - AVOID GREASY,SPICY ,FOODS UNTIL BETTER Referrals: Oliverio Estrada MD [Primary Care Provider] - 1-2 Weeks Home Medications: Ambulatory Orders Carvedilol [Coreg] 25 mg PO BID 09/02/12 Insulin Glargine [Lantus] 20 unit SC HS 09/02/12 Lisinopril 40 mg PO BID 09/02/12 Omeprazole [Prilosec] 20 mg PO BID 09/02/12 Venlafaxine Xr [Effexor Xr] 75 mg PO DAILY 09/02/12 HYDROcodone 10MG/APAP 325MG [[place] 10/325] 1 tab PO Q6HR PRN 06/17/14 Albuterol Sulfate Nebs [Proventil Nebs] 2.5 mg INH BID 09/20/16 Aspirin [Aspirin EC Low Dose] 81 mg PO DAILY 09/20/16 Pregabalin [Lyrica] 50 mg PO DAILY 09/20/16 Probiotic Product [Probiotic-10 Ultimate] 1 cap PO DAILY 09/20/16 Cefdinir [Omnicef] 300 mg PO BID #20 cap 09/22/16 Additional Instructions: May have chicken broth,toasted bread ,jelly ,tea,marce ranjeet for tonight and advanced diet as tolerated tomorrow pm Continue with all home medications; Follow up with primary md 02/20/2017
[2017-02-18 19:05] VITALS: O2SAT 96
[2017-02-18 19:19] VITALS: TEMP 98.6
[2017-02-18] MEDS: SODIUM CHLORIDE 0.9% 500ML 500 ML IVS ONE (19:54)
--- NOTE | 2017-02-18 21:52 | CT ---
EXAM DESCRIPTION: Abdoment/Pelvis w/o Contrast CLINICAL HISTORY: 76 years Female, pain COMPARISON: 09/08/2015 TECHNIQUE: Contiguous axial CT images of the abdomen and pelvis were acquired without administration of intravenous contrast. Coronal and sagittal reformatted images are provided. This exam was performed according to our departmental dose-optimization program which includes use of Automated Exposure Control, adjustment of the mA and/or kV according to patient size and/or use of iterative reconstruction technique. FINDINGS: Chest base: Coronary artery calcifications Liver: Calcified granuloma within the right hepatic lobe. Gallbladder: Surgically absent Spleen: Unremarkable. Adrenals: Unremarkable. Pancreas: Unremarkable. Right Kidney: No renal stones or hydronephrosis. Left Kidney: 4 mm renal stone or vascular calcification, stable. No hydronephrosis. Aorta and branch vessels: Advanced calcific atherosclerosis of the aortoiliac vessels. Unchanged 2.6 cm infrarenal abdominal aortic aneurysm. Calcified splenic artery aneurysm measuring 12 mm. Lymph nodes: No lymphadenopathy. Bowels: No obstruction. Colon: Scattered colonic diverticula. Appendix: Not identified Peritoneum: No free air or free fluid. Pelvic organs: Absent uterus. No large adnexal mass. Bladder: Unremarkable. Bones and soft tissues: Small fat-containing ventral hernia within the lower pelvis. Left proximal femur ORIF. Chronic L5 vertebral body compression deformity. IMPRESSION: No acute intra-abdominal abnormality. 4 mm renal stone or vascular calcification within the left kidney. No hydronephrosis. Unchanged infrarenal abdominal aortic aneurysm measuring 2.6 cm. Follow-up is recommended every five years. Stable 12 mm calcified splenic artery aneurysm. Consider follow-up yearly. Electronically signed by: Abraham Shaikh MD 02/18/2017 9:51 PM CDT
[2017-02-18 22:39] VITALS: BP 186/95
== END 2017-02-18 22:30 | disposition home or self-care (01) ==
LOC: ER 18:01
DX: R10.9 Unspecified abdominal pain (principal); R19.7 Diarrhea, unspecified; I72.8 Aneurysm of other specified arteries; J44.9 Chronic obstructive pulmonary disease, unspecified; I10 Essential (primary) hypertension; E11.9 Type 2 diabetes mellitus without complications; K21.9 Gastro-esophageal reflux disease without esophagitis; Z87.891 Personal history of nicotine dependence
CPT/HCPCS: 36415; 74176; 80053; 81001; 85025; J7040

== ENCOUNTER 2017-07-18 23:17 | Inpatient (IN) | payer MEDICARE ==
[2017-07-18] MEDS ORDERED: SODIUM CHLORIDE 0.9% 1000ML 1,000 ML IVS ONE (23:33)
--- NOTE | 2017-07-19 00:14 | RAD ---
EXAM: AP CHEST RADIOGRAPH CLINICAL INDICATION: Altered mental status. COMPARISON: Chest radiograph September 21, 2016. FINDINGS: Cardiac size and pulmonary vasculature are normal. Lungs are clear. No pleural effusions or pneumothorax. No hilar or mediastinal lymphadenopathy. No mediastinal widening. No extraluminal bowel gas under the hemidiaphragms. Bones are intact on this single view. IMPRESSION: Normal for age portable AP chest radiograph. Electronically signed by: Mohinder Quiros MD 07/19/2017 12:11 AM CDT
--- NOTE | 2017-07-19 00:22 | CT ---
EXAM: NONCONTRAST BRAIN CT EXAMINATION. CLINICAL INDICATION: Altered mental status. COMPARISON: Compared to brain CT examination September 20, 2016 and September 28, 2014. TECHNIQUE: Using low dose helical CT technique, thin section axial images were performed through the brain without the administration of intravenous or subarachnoid contrast material. FINDINGS: Brain volume is normal. No diffuse brain swelling or brain herniation. No hydrocephalus. No subdural or epidural hematomas. No large subacute brain infarction. No parenchymal brain hemorrhage or evidence of intracranial mass lesion. The brainstem and cerebellum are normal. Moderate nonspecific cerebral white matter disease. 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 Caudate heads, lentiform nuclei, thalami and internal capsules are normal. Bones of the skull and skull base are normal. The middle ears and mastoid air cells are clear. The paranasal sinuses are clear. Globes and orbits are grossly normal. IMPRESSION: 1. Unchanged normal for age brain CT examination. No intracranial hemorrhage or evidence of large subacute brain infarction. This exam was performed according to our departmental dose-optimization program, which includes automated exposure control, adjustment of the mA and/or kV according to patient size and/or use of iterative reconstruction technique. Electronically signed by: Mohinder Quirso MD 07/19/2017 12:20 AM CDT
[2017-07-19] MEDS ORDERED: SOD CHL 3% *HYPERTONIC* 500ML 120 ML IVS ONE (00:25)
--- NOTE | 2017-07-19 01:07 | ED.PDOC ---
History of Present Illness - General Chief Complaint: Neuro Symptoms/Deficits Stated Complaint: confused Time Seen by Provider: 07/18/17 23:24 Source: patient Exam Limitations: no limitations - History of Present Illness Initial Comments: the patient is a 76-year-old female presenting to the emergency room secondary to altered mental status for the better part of today. Family reported that she was just not acting right earlier in the morning but by evening she would not eat her supper and was just standing on the porch yelling. She apparently does have a significant history of dementia but does essentially live alone with the help of her family. Family reports that once every month or 2 she gets these episodes where she gets confused. She does take psychiatric medications and does have a history of hyponatremia. She also does take chronic pain medications. Family manages her medications for her. Family and the patient deny any recent cough, congestion, shortness of breath or fevers. No sore throat or runny nose. No GI or urinary symptoms. Timing/Duration: 24 hours Severity: moderate Improving Factors: nothing Worsening Factors: nothing Associated Symptoms: denies symptoms Allergies/Adverse Reactions: Allergies Codeine Allergy (Verified 07/19/17 01:11) Sulfa Antibiotics Allergy (Verified 07/19/17 01:11) Morphine Adverse Reaction (Verified 07/19/17 01:11) Other Makes patient "crazy" Home Medications: Ambulatory Orders Carvedilol [Coreg] 25 mg PO BID 09/02/12 Insulin Glargine [Lantus] 20 unit SC HS 09/02/12 Lisinopril 40 mg PO BID 09/02/12 Omeprazole [Prilosec] 20 mg PO BID 09/02/12 Venlafaxine Xr [Effexor Xr] 75 mg PO DAILY 09/02/12 HYDROcodone 10MG/APAP 325MG [[place] 10/325] 1 tab PO Q6HR PRN 06/17/14 Albuterol Sulfate Nebs [Proventil Nebs] 2.5 mg INH BID 09/20/16 Aspirin [Aspirin EC Low Dose] 81 mg PO DAILY 09/20/16 Review of Systems - Review of Systems Constitutional: States: malaise EENTM: States: no symptoms reported Respiratory: States: no symptoms reported Gastrointestinal/Abdominal: States: no symptoms reported Genitourinary: States: no symptoms reported Musculoskeletal: States: no symptoms reported Skin: States: no symptoms reported Neurological: States: see HPI Endocrine: States: no symptoms reported Hematologic/Lymphatic: States: no symptoms reported All other Systems: No Change from Baseline Past Medical History (General) - Patient Medical History Hx Seizures: No Hx Stroke: No Hx Dementia: No Hx Asthma: No Hx of COPD: Yes Hx Cardiac Disorders: No Hx Congestive Heart Failure: No Hx Pacemaker: No Hx Hypertension: Yes Hx Thyroid Disease: No Hx Diabetes: Yes Hx Gastroesophageal Reflux: Yes Hx Renal Disease: No Hx Cancer: No Hx of HIV: No Hx Hepatitis C: No Hx MRSA: No Surgical History: cholecystectomy, Hysterectomy - Vaccination History Hx Tetanus, Diphtheria Vaccination: No Hx Influenza Vaccination: Yes Hx Pneumococcal Vaccination: Yes Immunizations Up to Date: Yes - Social History Hx Tobacco Use: Yes Years Tobacco Use: 50 Hx Chewing Tobacco Use: No Hx Alcohol Use: No Hx Substance Use: No Hx Substance Use Treatment: No Hx Depression: No Feels Threatened In Home Enviroment: No Feels Threatened In a Relationship: No Hx Physical Abuse: No Hx Emotional Abuse: No Hx Suspected Abuse: No - Activities of Daily Living Hospice Agency (if applicable):: None - Female History Patient is a Female of Child Bearing Age (10 -59 yrs old): No Patient : No Family Medical History - Family History Mother Family History: No Known Name: Aries Cavazos Age (years): 53 Living Status: Hx Family Asthma: No Hx Family Congestive Heart Failure: No Hx Family Hypertension: No Hx Family Stroke: No Hx Cardiac Disease: No Hx Family Diabetes: Yes - parents Hx Family Cancer: No Physical Exam - Physical Exam General Appearance: Alert - he is somewhat drowsy, No apparent distress Eye Exam: bilateral normal - pupils are 2 mmand minimally reactiveconsistent with her opioid use Ears, Nose, Throat: hearing grossly normal, normal ENT inspection, normal pharynx Neck: full range of motion, supple Respiratory: lungs clear, normal breath sounds, no respiratory distress, no accessory muscle use Cardiovascular/Chest: normal peripheral pulses, regular rate, rhythm, no edema Peripheral Pulses: radial,right: 2+, radial,left: 2+, dorsalis pedis,right: 2+, dorsalis pedis,left: 2+ Gastrointestinal/Abdominal: soft, other - ild suprapubic discomfort palpation before she urinated Rectal Exam: deferred Back Exam: no CVA tenderness, no vertebral tenderness Extremity: normal inspection, no calf tenderness, normal capillary refill 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 She is somewhat difficult to direct. She is sleepy. She does recognize her family. Skin Exam: normal color Comments: Vital Signs - 24 hr 07/18/17 07/19/17 23:18 00:18 Temperature 98.7 F 98.2 F Pulse Rate 72 Pulse Rate [ 71 72 Apical] Respiratory 16 16 Rate Blood Pressure 137/94 202/85 [Left Arm] O2 Sat by Pulse 97 98 Oximetry blood pressures on the systolic and have ranged from 140-180 Progress - Progress Progress: 07/19/17 01:09 the patient is a 76-year-old female presenting to the emergency room secondary to progressive altered mental status over the last 24 hours. This is most likely due to her hyponatremia in combination with her sedating-type medications. The patient has received some normal saline and is receiving 30 cc per hour for 4 hours of 3% saline. She will need a repeat sodium level in the morning. I would recommend holding some pain and psychiatric medications until she clears up somewhat. It is entirely possible her Effexor may be contributing to the hyponatremia. It may not be the only cause. No other source for the hyponatremia has been found at this time. The patient will be admitted for correction of the hyponatremia and further monitoring. - Results/Orders Results/Orders: 07/18/17 23:33 Telemetry .CONTINUOUS 07/19/17 00:25 Sod Chl 3% *Hypertonic* 500Ml [HYPERTONIC Sodium Chloride 3% 500ml] 120 ml IVS ONCE Laboratory Results - last 24 hr 07/18/17 07/18/17 07/18/17 23:45 23:45 23:45 WBC 9.0 RBC 4.26 Hgb 11.8 L Hct 34.4 L MCV 80.6 L MCH 27.6 MCHC 34.2 RDW 14.8 H Plt Count 216 MPV 7.6 Absolute Neuts (auto) 6.10 Absolute Lymphs (auto) 2.20 Absolute Monos (auto) 0.60 Absolute Eos (auto) 0.10 Absolute Basos (auto) 0.00 Neutrophils % 67.8 Lymphocytes % 23.8 Monocytes % 6.4 Eosinophils % 1.5 Basophils % 0.5 Sodium 124 L Potassium 3.9 Chloride 92 L Carbon Dioxide 24 Anion Gap 11.9 L BUN 10 Creatinine 0.84 BUN/Creatinine Ratio 11.9 POC Glucose 118 H Random Glucose 109 H Serum Osmolality 249.3 L* Calcium 9.0 Magnesium 2.0 Total Bilirubin 0.5 AST 18 ALT 10 Alkaline Phosphatase 50 Creatine Kinase 88 CK-MB (CK-2) 4.5 H CK-MB (CK-2) % 5.11 H Troponin I < 0.02 B-Natriuretic Peptide 41.9 Serum Total Protein 7.2 Albumin 4.1 Globulin 3.1 Albumin/Globulin Ratio 1.3 TSH 3.12 Urine Color Urine Appearance Urine pH Ur Specific Mcgee Urine Protein Urine Glucose (UA) Urine Ketones Urine Blood Urine Nitrite Urine Bilirubin Urine Urobilinogen Ur Leukocyte Esterase Urine RBC Urine WBC Ur Epithelial Cells Urine Bacteria 07/19/17 00:45 WBC RBC Hgb Hct MCV MCH MCHC RDW Plt Count MPV Absolute Neuts (auto) Absolute Lymphs (auto) Absolute Monos (auto) Absolute Eos (auto) Absolute Basos (auto) Neutrophils % Lymphocytes % Monocytes % Eosinophils % Basophils % Sodium Potassium Chloride Carbon Dioxide Anion Gap BUN Creatinine BUN/Creatinine Ratio POC Glucose Random Glucose Serum Osmolality Calcium Magnesium Total Bilirubin AST ALT Alkaline Phosphatase Creatine Kinase CK-MB (CK-2) CK-MB (CK-2) % Troponin I B-Natriuretic Peptide Serum Total Protein Albumin Globulin Albumin/Globulin Ratio TSH Urine Color Yellow Urine Appearance Clear Urine pH 6.0 Ur Specific Mcgee 1.010 Urine Protein Negative Urine Glucose (UA) Negative Urine Ketones Negative Urine Blood Negative Urine Nitrite Negative Urine Bilirubin Negative Urine Urobilinogen 0.2 Ur Leukocyte Esterase Negative Urine RBC 0 Urine WBC 0-1 Ur Epithelial Cells 1-3 Urine Bacteria 1+ CT scan of the head shows no acute pathology. Certainly no evidence of any herniation. chest x-ray appears grossly normal for this patient. Departure - Departure Clinical Impression: Acute metabolic encephalopathy, Hypo-osmolality and hyponatremia Disposition: Admit Patient Home Medications: Ambulatory Orders Carvedilol [Coreg] 25 mg PO BID 09/02/12 Insulin Glargine [Lantus] 20 unit SC HS 09/02/12 Lisinopril 40 mg PO BID 09/02/12 Omeprazole [Prilosec] 20 mg PO BID 09/02/12 Venlafaxine Xr [Effexor Xr] 75 mg PO DAILY 09/02/12 HYDROcodone 10MG/APAP 325MG [[place] 10325] 1 tab PO Q6HR PRN 06/17/14 Albuterol Sulfate Nebs [Proventil Nebs] 2.5 mg INH BID 09/20/16 Aspirin [Aspirin EC Low Dose] 81 mg PO DAILY 09/20/16 Decision To Admit - Decistion To Admit Decision to Admit Reason: Medical Nature Decision to Admit Date: 07/19/17 Decision to Admit Time: 01:30
--- NOTE | 2017-07-19 01:45 | HP ---
HISTORY OF PRESENT ILLNESS: This 75-year-old, white female who lives at home alone was brought by family to the Emergency Room because of progressive altered level of consciousness. She was somewhat confused on the morning prior to admission, but then by the eveningtime, she was not eating and was even more confused. Living by herself makes this a dangerous situation. She has had previous episodes of low sodium in the past and has been on fairly high doses of chronic opioids including fentanyl patches and Effexor medication and lisinopril with the latter two possibly contributing somewhat to an inappropriate secretion of ADH and attendant hyponatremic symptoms, being symptomatic at this time. When the patient was eventually examined, she was by herself, family was not present and she was unable to speak. She would close her eyes and would not respond. She would not eat initially, but as the examination went on, she became more cognizant of her surroundings and started to eat when fed and was able to answer some of the questions appropriately. She was not in any pain, nor did she have vomiting or headache. She was weak and has had problems with falling at home. Will discuss with family. She is followed closely [facility] Dr[facility]. PAST MEDICAL HISTORY: 1. Diabetes mellitus with insulin usage. 2. Chronic back pain on fentanyl and hydrocodone in the past. 3. History of hypertension on lisinopril. 4. Chronic obstructive pulmonary disease in a chronic smoker. PAST SURGICAL HISTORY: 1. Appendectomy. 2. Hysterectomy. 3. Cholecystectomy. 4. Left hip replacement in 2012. 5. Cataract removal and lens implant in the past. CURRENT MEDICATIONS: Please refer to nursing notes for a list of verified home medications. ALLERGIES: CODEINE, SULFA, MORPHINE. FAMILY HISTORY: Positive for diabetes and cancer. SOCIAL HISTORY: The patient has been smoking over 40 years and has been smoking recently. No significant alcohol consumption. She is a and lives in [place] with her family significantly attempting to assist her in her ongoing care. REVIEW OF SYSTEMS: Difficult to fully have the patient contribute to her review of systems at this time. PHYSICAL EXAMINATION: VITAL SIGNS: Afebrile. Blood pressure 164/88. Pulse 78. Pulse oximetry 94% on room air. Weight 84.2 kg. GENERAL: The patient is lying in the bed with her head elevated. As we discussed and continue with the examination, she slowly became more responsive and was soon able to be fed some bites, but is generally edentulous. Her diet will be changed to mechanical soft with ADA diet with extra salt. NECK: Supple. LUNGS: Somewhat diminished breath sounds bilaterally. CARDIOVASCULAR: Heart tones are regular. ABDOMEN: Somewhat tender in the epigastrium, but no organomegaly, masses or tenderness otherwise evident. No rebound tenderness. EXTREMITIES: Fairly well-formed with diminished muscle tone. SCDs in place. NEUROLOGIC: No focal neurological deficits are noted. The patient is altered in her general level of consciousness, tending to sleep, but is able to be aroused with a fair degree of stimulation, at which time she is answer questions to somewhat of a normal degree. She is not actively eating and has to be fed. Spells of just sitting with her head down, eyes closed and then responding to questions with her eyes closed suggests that she is able to hear. Whether there is an element of sedation from her hyponatremic state or the medications used or the associated dementia to be considered. LABORATORY: White count 9,000, hemoglobin 11.8. Sodium 132, potassium 3.5. Kidneys normal. Fasting glucose 180. Osmolality 266. Calcium 9.2. The current chemistries show an improvement from an original sodium of 124 up to 132 and osmolality of 249 this morning up to 265. Troponin 0. Liver enzymes normal. Albumin 4.1, TSH 3.1. Urinalysis generally clean at this time. No cultures obtained. Chest x-ray shows no acute cardiopulmonary process. CT of the head shows no new intracranial processes to be noted. ASSESSMENT: 1. Significant hyponatremia of 124, symptomatic with altered level of consciousness. Possibly related to either or both of Effexor and high doses of lisinopril currently being taken by the patient. 2. Altered level of consciousness, probably secondary to the hyponatremic state with possible dementia contributing. 3. Chronic dementia state with the patient living home alone and concern because of falling. 4. History of recent falls, placing the patient at fall risk. 5. 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 6. History of hypertension with medication program to be altered. PLAN: The patient is admitted for neuro vitals. Her Effexor is stopped and the lisinopril is decreased from 40 mg b.i.d. to 20 mg a day to which is added amlodipine 5 mg and observe closely. Continue with insulin to assist with diabetic control. The patient will be placed on p.o. fluid restrictions and some loop diuresis to assist with the ongoing removal of excessive free water. The patient given a small bolus of hypertonic saline and reevaluate and observe as her hospital stay continues. Close followup suggested. Followup with Dr. Estrada upon stabilization and when ready for outpatient followup. #[id number] [facility]
[2017-07-19] MEDS ORDERED: SODIUM CHLORIDE 0.9% (FLUSH) 10 ML SYG IV PRN (01:48)
[2017-07-19] MEDS ORDERED: ONDANSETRON INJ 4 MG/2 ML VIAL IV PRN (01:50)
[2017-07-19] MEDS ORDERED: MAGNESIUM HYDROXIDE 30 ML UD PO PRN (01:50)
[2017-07-19] MEDS ORDERED: ACETAMINOPHEN 325 MG TAB PO PRN (01:50)
[2017-07-19] MEDS ORDERED: LEVALBUTEROL NEBS 0.63 MG/3 ML VIAL INH PRN (01:50)
[2017-07-19] MEDS ORDERED: GLUCAGON INJ 1 MG VIAL SUBCU PRN (02:02)
[2017-07-19] MEDS ORDERED: DEXTROSE 50% 25 GM/50 ML SYG IV PRN (02:02)
[2017-07-19] MEDS: LEVALBUTEROL NEBS 1.25 MG/3 ML VIAL INH SCH ×3 (02:19→16:13)
[2017-07-19] MEDS ORDERED: FUROSEMIDE INJ 20 MG/2 ML VIAL IV ONE (02:30)
[2017-07-19] MEDS: IV SET AND CAP CHANGE INJ INJ SCH (02:44)
[2017-07-19] MEDS: KCL 20 MEQ/NS 1,000 ML IVS PRN (04:23)
[2017-07-19] MEDS ORDERED: OMEPRAZOLE CAP 20 MG CAP PO SCH (06:30)
[2017-07-19] MEDS: INSULIN LISPRO 100 UNITS/ML PEN SUBCU SCH ×4 (07:46→21:06)
[2017-07-19] MEDS ORDERED: ENOXAPARIN SODIUM 30 MG/0.3 ML SYG SUBCU SCH (09:00)
[2017-07-19] MEDS ORDERED: LISINOPRIL 10 MG TAB PO SCH (09:00)
[2017-07-19] MEDS: FUROSEMIDE INJ 20 MG/2 ML VIAL IV SCH ×2 (09:18→17:12)
[2017-07-19] MEDS: CARVEDILOL 12.5 MG TAB PO SCH ×2 (09:18→21:05)
[2017-07-19] MEDS: POTASSIUM CHLORIDE 10 MEQ TAB PO SCH ×2 (09:18→21:05)
[2017-07-19] MEDS: ASPIRIN EC 81 MG TAB PO SCH (09:18)
[2017-07-19] MEDS: OMEPRAZOLE CAP 20 MG CAP PO SCH ×2 (09:19→21:07)
[2017-07-19] MEDS: amLODIPine BESYLATE 5 MG TAB PO SCH (12:11)
[2017-07-19] MEDS: HYDROcodone 10MG/APAP 325MG 1 EA TAB PO PRN ×2 (13:21→21:05)
[2017-07-19] MEDS: INSULIN DETEMIR 100 UNITS/ML PEN SUBCU SCH (21:06)
[2017-07-20] MEDS: LEVALBUTEROL NEBS 1.25 MG/3 ML VIAL INH SCH ×4 (00:40→23:40)
[2017-07-20] MEDS: KCL 20 MEQ/NS 1,000 ML IVS PRN (02:18)
[2017-07-20] MEDS: HYDROcodone 10MG/APAP 325MG 1 EA TAB PO PRN ×3 (06:56→22:05)
[2017-07-20] MEDS: INSULIN LISPRO 100 UNITS/ML PEN SUBCU SCH ×4 (07:34→20:57)
[2017-07-20] MEDS: POTASSIUM CHLORIDE 10 MEQ TAB PO SCH (07:56)
[2017-07-20] MEDS: ENOXAPARIN SODIUM 40 MG/0.4 ML SYG SUBCU SCH (09:06)
[2017-07-20] MEDS: FUROSEMIDE INJ 20 MG/2 ML VIAL IV SCH ×2 (09:06→16:40)
[2017-07-20] MEDS: ASPIRIN EC 81 MG TAB PO SCH (09:06)
[2017-07-20] MEDS: CARVEDILOL 12.5 MG TAB PO SCH ×2 (09:06→20:56)
[2017-07-20] MEDS: amLODIPine BESYLATE 5 MG TAB PO SCH (09:07)
[2017-07-20] MEDS: LISINOPRIL 10 MG TAB PO SCH (09:07)
[2017-07-20] MEDS: OMEPRAZOLE CAP 20 MG CAP PO SCH ×2 (09:07→20:57)
[2017-07-20] MEDS: NICOTINE PATCH 14 MG TD SCH (15:27)
--- NOTE | 2017-07-20 19:32 | PN ---
DATE: 07/20/17 SUPERVISING PHYSICIAN: Siva Webb M.D. SUBJECTIVE: The patient says she feels much better today. Her family notes that she is back to her baseline mental status. She has attempted to get to the bedside commode and the bedside chair, but was unable to stand without full assistance and refused to do any physical therapy efforts. OBJECTIVE: VITAL SIGNS: Temperature 97.9, pulse 70, blood pressure 123/66, respirations 16, satting 95% on room air. Weight is 57.7 kg. CHEST: Lungs were clear to auscultation, just slightly diminished towards the bases bilaterally. HEART: Regular rate and rhythm. ABDOMEN: Soft, non-tender. Positive bowel sounds. EXTREMITIES: No clubbing, cyanosis or edema. NEUROLOGIC : She was alert and oriented times three. LABORATORY: Sodium has normalized today to 135, potassium 4.1, BUN 14, creatinine 0.88. Blood sugars have been between 135 and 268. Calcium 9.2. CBC today shows normal white count at 6,500, hemoglobin 12.6, hematocrit 37.3, platelet count 219,000. Differential shows to be within normal limits. No microbiology specimens were submitted. RADIOLOGY: No additional radiographic studies were done today. ASSESSMENT: 1. Significant hyponatremia of 124, symptomatic with altered level of consciousness on admission possibly related to either Effexor or high doses of lisinopril with modification of both doses required with the patient receiving 3% hypertonic saline showing improvement with continued weakness. 2. Altered level of consciousness secondary to the hyponatremic state possibly exacerbated by underlying dementia. 3. Chronic dementia state with the patient living alone with concerns and high risk for falls as she does utilize a walker and is severely deconditioned. 4. History of recent falls placing again the patient at high risk for additional falls with a history of previous falls resulting in a left hip fracture in the past. 5. 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 6. History of hypertension with medication requiring management. PLAN: The patient will continue with current plan of care at this point as she has returned to her near baseline mental status. She is on Lasix IV 10 b.i.d. with fluid restrictions of less than 1200 a day. Her lisinopril was changed to 20 daily from 40 b.i.d. and 5 mg of Norvasc was added, and she has been tolerating this well and the Effexor is currently on hold. She continue to be significantly weak and requires full assistance, and needs additional physical therapy efforts to ensure that she is safe once she is discharged home. Will plan to repeat labs in the morning and continue with current medications with anticipation of discontinuing the Lasix in the morning. Anticipate hopefully discharging tomorrow or Saturday with questionable need to go to either Swing Bed or possible rehab facility for ongoing physical therapy. Until then, will continue to monitor and treat appropriately. #[id number] [facility]
[2017-07-20] MEDS: INSULIN DETEMIR 100 UNITS/ML PEN SUBCU SCH (20:59)
[2017-07-21] MEDS: KCL 20 MEQ/NS 1,000 ML IVS PRN (00:14)
[2017-07-21] MEDS: LEVALBUTEROL NEBS 1.25 MG/3 ML VIAL INH SCH ×3 (07:43→23:21)
[2017-07-21] MEDS: HYDROcodone 10MG/APAP 325MG 1 EA TAB PO PRN ×3 (08:00→21:00)
[2017-07-21] MEDS: POTASSIUM CHLORIDE 10 MEQ TAB PO SCH (08:00)
[2017-07-21] MEDS: INSULIN LISPRO 100 UNITS/ML PEN SUBCU SCH ×4 (09:07→21:18)
[2017-07-21] MEDS: CARVEDILOL 12.5 MG TAB PO SCH ×2 (10:06→21:00)
[2017-07-21] MEDS: ASPIRIN EC 81 MG TAB PO SCH (10:06)
[2017-07-21] MEDS: ENOXAPARIN SODIUM 40 MG/0.4 ML SYG SUBCU SCH (10:07)
[2017-07-21] MEDS: FUROSEMIDE INJ 20 MG/2 ML VIAL IV SCH ×2 (10:07→17:25)
[2017-07-21] MEDS: LISINOPRIL 10 MG TAB PO SCH (10:07)
[2017-07-21] MEDS: OMEPRAZOLE CAP 20 MG CAP PO SCH ×2 (10:07→21:01)
[2017-07-21] MEDS: amLODIPine BESYLATE 5 MG TAB PO SCH (10:07)
[2017-07-21] MEDS: SODIUM CHLORIDE 0.9% (FLUSH) 10 ML SYG IV SCH ×2 (10:08→21:01)
--- NOTE | 2017-07-21 14:23 | PN ---
DATE: 07/21/17 SUPERVISING PHYSICIAN: Siva Webb M.D. SUBJECTIVE: The patient continues to improve but refuses to do any significant ambulatory efforts. She remains alert, has been afebrile without any complaints. OBJECTIVE: VITAL SIGNS: Temperature 97.8, pulse 85, blood pressure 146/72, respirations 18 , satting 96% on room air at rest. I&O: positive balance of 857 with 1250 out and 2107 in with weight is 59.8 kg. CHEST: Lungs clear to auscultation, HEART: Regular rate and rhythm. ABDOMEN: Soft, non-tender. Positive bowel sounds. EXTREMITIES: No clubbing, cyanosis or edema. NEUROLOGIC: She was alert and oriented times three. LABORATORY: No additional laboratory studies were repeated today. Blood sugars do remain fairly well controlled between 118 and 269. RADIOLOGY: No additional radiographic studies. ASSESSMENT: 1. Significant hyponatremia of 124 being symptomatic with altered level of consciousness and significant weakness felt to be exacerbated by Effexor and higher dose of lisinopril requiring modification of medications as well administration of 3% hypertonic saline with patient showing good response. 2. Altered level of consciousness secondary to the hyponatremic state as noted in #1 exacerbating some underlying dementia. 3. Chronic dementia state with the patient living alone and with concerns for a high risk for falls as she does utilize a walker and is severely deconditioned. 4. History of recent falls placing again the patient at high risk for additional falls with a history of previous falls resulting in a left hip fracture in the past. 5. 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 6. History of hypertension with medication requiring management. PLAN: Continue with current plan of care with modification of her medications as noted. She will be changed to Lasix p.o. tomorrow and nurses will attempt to continue to work with the patient to increase her physical activities with anticipation of physical therapy tomorrow with discharge planning in place for either discharge home, consideration for Swing bed or ongoing need to continued rehabilitation and reconditioning. Until discharge we will continue to monitor closely and treat appropriately #[id number] [facility]
[2017-07-21] MEDS: NICOTINE PATCH 14 MG TD SCH (14:56)
[2017-07-21] MEDS: INSULIN DETEMIR 100 UNITS/ML PEN SUBCU SCH (21:18)
[2017-07-22] MEDS: IV SET AND CAP CHANGE INJ INJ SCH (02:00)
[2017-07-22 06:10] VITALS: TEMP 99.2
[2017-07-22] MEDS: POTASSIUM CHLORIDE 10 MEQ TAB PO SCH (08:04)
[2017-07-22] MEDS: ASPIRIN EC 81 MG TAB PO SCH (08:04)
[2017-07-22] MEDS: LISINOPRIL 10 MG TAB PO SCH (08:04)
[2017-07-22] MEDS: amLODIPine BESYLATE 5 MG TAB PO SCH (08:05)
[2017-07-22] MEDS: OMEPRAZOLE CAP 20 MG CAP PO SCH (08:05)
[2017-07-22] MEDS: SODIUM CHLORIDE 0.9% (FLUSH) 10 ML SYG IV SCH (08:05)
[2017-07-22] MEDS: CARVEDILOL 12.5 MG TAB PO SCH (08:05)
[2017-07-22] MEDS: FUROSEMIDE INJ 20 MG/2 ML VIAL IV SCH (08:05)
[2017-07-22] MEDS: INSULIN LISPRO 100 UNITS/ML PEN SUBCU SCH ×2 (08:09→12:24)
[2017-07-22] MEDS: ENOXAPARIN SODIUM 40 MG/0.4 ML SYG SUBCU SCH (08:10)
[2017-07-22] MEDS: LEVALBUTEROL NEBS 1.25 MG/3 ML VIAL INH SCH (08:55)
--- NOTE | 2017-07-22 13:43 | DS ---
SUPERVISING PHYSICIAN: Abraham Kim MD ADMISSION DIAGNOSIS: 1. Significant hyponatremia. 2. Altered mental status. 3. Chronic dementia. 4. History of recent falls. 5. 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 6. History of hypertension. DISCHARGE DIAGNOSIS: 1. Hyponatremia, improved. 2. Altered mental status, improved. 3. Chronic dementia. 4. History of recent falls. 5. Diffuse myopathy. HOSPITAL COURSE: This 75-year-old female lives at home alone, but was brought to the Emergency Room due to altered mental status. She was seen in the Emergency Room and noted to have a significant hyponatremia of 124. She also has had some falls and has been more weak. She was admitted and actually given hypertonic saline. She did have improvement in her sodium levels. Mentation gradually improved as well. She did have discontinuation of her Effexor and decrease of her lisinopril. She progressed to the point where she really wanted to go home. Family was here and I discussed the case with them. She is really not too mobile at this point and she lives alone. I feel at this point she would be unsafe to go home alone. I spoke with the family about this and they agreed with this. We discussed long-term care facility versus rehab versus the patient going home with one of them. At the end of the conversations , they have decided the patient will go home with her son. We have arranged for home health to be changed from her house to her son's house. She will be leaving today in stable condition. DISCHARGE CONDITION: Stable. DISCHARGE DIET: As per diet prior to admission. ACTIVITY: As tolerated and per physical therapy with home health. FOLLOWUP: Followup appointment with Dr. Estrada in one to two weeks. #[id number] [facility]
[2017-07-22] MEDS: NICOTINE PATCH 14 MG TD SCH (15:29)
[2017-07-22 17:35] VITALS: BP 137/83; O2SAT 99
== END 2017-07-22 16:00 | disposition home health service (06) | DRG 645 ==
LOC: ER 23:17 → MS 07-19 01:42 → OBSVTOIN 07-19 01:42
PROVIDERS: ADMIT Emergency Medicine; ATTEND Nurse Practitioner
DX: E22.2 Syndrome of inappropriate secretion of antidiuretic hormone (principal); F03.90 Unspecified dementia, unspecified severity, without behavioral disturbance, psychotic disturbance, mood disturbance, and anxiety; G89.29 Other chronic pain; J44.9 Chronic obstructive pulmonary disease, unspecified; E11.9 Type 2 diabetes mellitus without complications; I10 Essential (primary) hypertension; K21.9 Gastro-esophageal reflux disease without esophagitis; G72.9 Myopathy, unspecified; T43.215A Adverse effect of selective serotonin and norepinephrine reuptake inhibitors, initial encounter; T46.4X5A Adverse effect of angiotensin-converting-enzyme inhibitors, initial encounter; F17.210 Nicotine dependence, cigarettes, uncomplicated; Z96.642 Presence of left artificial hip joint; Z88.5 Allergy status to narcotic agent; Z79.891 Long term (current) use of opiate analgesic; Z88.2 Allergy status to sulfonamides; Z79.4 Long term (current) use of insulin; Z79.82 Long term (current) use of aspirin; Z91.81 History of falling

== ENCOUNTER 2017-09-10 08:36 | Emergency (ER) | payer MEDICARE ==
--- NOTE | 2017-09-10 08:49 | ED.PDOC ---
History of Present Illness - General Chief Complaint: Lower Extremity Injury Time Seen by Provider: 09/10/17 08:47 Additional Information: 77 YEAR OLD WHITE FEMALE PRESENTS WITH PAIN AND SWELLING OF THE LEFT KNEE AFTER SHE TWISTED HER KNEE WHILE GETTING OUT OF HER RECLINER SHE DID NOT FALL SHE HAS NOW SWELLING AND PAIN INVOLVING THE LEFT KNEE - History of Present Illness Allergies/Adverse Reactions: Allergies Codeine Allergy (Verified 07/19/17 01:11) Sulfa Antibiotics Allergy (Verified 07/19/17 01:11) Morphine Adverse Reaction (Verified 07/19/17 01:11) Other Makes patient "crazy" Home Medications: Ambulatory Orders Carvedilol [Coreg] 25 mg PO BID 09/02/12 Insulin Glargine [Lantus] 20 unit SC HS 09/02/12 Lisinopril 40 mg PO BID 09/02/12 Omeprazole [Prilosec] 20 mg PO BID 09/02/12 Venlafaxine Xr [Effexor Xr] 75 mg PO DAILY 09/02/12 HYDROcodone 10MG/APAP 325MG [[place] 10/325] 1 tab PO Q6HR PRN 06/17/14 Albuterol Sulfate Nebs [Proventil Nebs] 2.5 mg INH BID 09/20/16 Aspirin [Aspirin EC Low Dose] 81 mg PO DAILY 09/20/16 Review of Systems - Review of Systems Constitutional: States: no symptoms reported EENTM: States: no symptoms reported Respiratory: States: no symptoms reported Cardiology: States: no symptoms reported Gastrointestinal/Abdominal: States: no symptoms reported Genitourinary: States: no symptoms reported Musculoskeletal: States: no symptoms reported Skin: States: no symptoms reported Neurological: States: no symptoms reported Endocrine: States: no symptoms reported Hematologic/Lymphatic: States: no symptoms reported Past Medical History (General) - Patient Medical History Hx Seizures: No Hx Stroke: No Hx Dementia: No Hx Asthma: No Hx of COPD: Yes Hx Cardiac Disorders: No Hx Congestive Heart Failure: No Hx Pacemaker: No Hx Hypertension: Yes Hx Thyroid Disease: No Hx Diabetes: Yes Hx Gastroesophageal Reflux: Yes Hx Renal Disease: No Hx Cancer: No Hx of HIV: No Hx Hepatitis C: No Hx MRSA: No - Vaccination History Hx Tetanus, Diphtheria Vaccination: No Hx Influenza Vaccination: Yes Hx Pneumococcal Vaccination: Yes - Social History Hx Tobacco Use: Yes Hx Chewing Tobacco Use: No Hx Alcohol Use: No Hx Substance Use: No Hx Substance Use Treatment: No Hx Depression: No Hx Physical Abuse: No Hx Emotional Abuse: No Hx Suspected Abuse: No - Female History Patient : No Family Medical History - Family History Mother Family History: No Known Name: Aries Cavazos Age (years): 53 Living Status: Hx Family Asthma: No Hx Family Congestive Heart Failure: No Hx Family Hypertension: No Hx Family Stroke: No Hx Cardiac Disease: No Hx Family Diabetes: Yes - parents Hx Family Cancer: No Physical Exam - Physical Exam General Appearance: Anxious, Emaciated Eyes, Ears, Nose, Throat: PERRL/EOMI, TMs normal Neck: non-tender, full range of motion, supple Cardiovascular/Respiratory: regular rate, rhythm, normal peripheral pulses, no JVD, normal breath sounds Thigh/Hip: normal inspection, non-tender, no evidence of injury Knee: joint effusion, limited ROM, pain, soft tissue tenderness, swelling Ankle: normal inspection, non-tender Mental Status: alert, oriented x 3 Progress - Results/Orders Results/Orders: X RAY LEFT KNEE NO ACUTE FRACTURE DISLOCATION NOTED SMALL JOINT EFFUSION NOTED IT WAS RECOMMENDED IF SHE CONTINUES EXPERIENCE PAIN AFTER WEEK OF REST TO SEE HER PHYSICIAN AND HAVE MRI DONE FOR FURTHER SPECIFIC DIAGNOSIS OF THE LEFT KNEE PAIN Departure - Departure Clinical Impression: Sprain of knee, Diabetes 1.5, managed as type 1 Time of Disposition: 09:38 Disposition: Discharge to Home or Self Care Condition: Good Departure Forms: ED Discharge - Pt. Copy, Patient Portal Self Enrollment Instructions: DI for Leg Pain Referrals: Oliverio Estrada MD [Primary Care Provider] - 1-2 Weeks Home Medications: Ambulatory Orders Carvedilol [Coreg] 25 mg PO BID 09/02/12 Insulin Glargine [Lantus] 20 unit SC HS 09/02/12 Lisinopril 40 mg PO BID 09/02/12 Omeprazole [Prilosec] 20 mg PO BID 09/02/12 Venlafaxine Xr [Effexor Xr] 75 mg PO DAILY 09/02/12 HYDROcodone 10MG/APAP 325MG [[place] 10/325] 1 tab PO Q6HR PRN 06/17/14 Albuterol Sulfate Nebs [Proventil Nebs] 2.5 mg INH BID 09/20/16 Aspirin [Aspirin EC Low Dose] 81 mg PO DAILY 09/20/16
[2017-09-10] MEDS ORDERED: KETOROLAC TROMETHAMINE INJ 60 MG/2 ML VIAL IM ONE (08:50)
--- NOTE | 2017-09-10 09:29 | RAD ---
EXAM DESCRIPTION: Left knee, 2 views CLINICAL HISTORY: Knee injury. Pain with movement FINDINGS/ IMPRESSION: No fracture or acute osteochondral lesion identified. Small suprapatellar joint effusion. Chronic osteochondral lesion dorsal patella with an area of cystic change about 5 mm. No advanced arthrosis otherwise Diffuse osteopenia Vascular calcifications Electronically signed by: Siva Oleary MD 09/10/2017 9:28 AM CDT
[2017-09-10 10:24] VITALS: BP 152/63; TEMP 98.5; O2SAT 98
== END 2017-09-10 10:10 | disposition home or self-care (01) ==
LOC: ER 08:36
DX: S83.92XA Sprain of unspecified site of left knee, initial encounter (principal); E10.9 Type 1 diabetes mellitus without complications; J44.9 Chronic obstructive pulmonary disease, unspecified; I10 Essential (primary) hypertension; K21.9 Gastro-esophageal reflux disease without esophagitis; Z79.4 Long term (current) use of insulin; Z87.891 Personal history of nicotine dependence; X50.1XXA Overexertion from prolonged static or awkward postures, initial encounter; Y92.89 Other specified places as the place of occurrence of the external cause
CPT/HCPCS: 73560; J1885

== ENCOUNTER → 2017-11-07 | Outpatient (CLI) | payer MEDICARE | LOC: NC 14:43 | PROVIDERS: ATTEND General Practice | DX: E11.42 Type 2 diabetes mellitus with diabetic polyneuropathy (principal); I10 Essential (primary) hypertension ==

== ENCOUNTER 2018-06-28 09:35 | Inpatient (IN) | payer MEDICARE ==
--- NOTE | 2018-06-28 09:51 | ED.PDOC ---
History of Present Illness - General Chief Complaint: Neuro Symptoms/Deficits Stated Complaint: Confusion, fever Time Seen by Provider: 06/28/18 09:47 Source: patient, family - History of Present Illness Initial Comments: THIS PATIENT COMES TO THE ED BY POV. EVIDENTLY SHE HAD A FALL LAST SATURDAY AND HIT HER HEAD, ON ASPIRIN BUT NO OTHER ANTICOAGULANTS. THE FAMILY NOTED YESTERDAY SOME CONFUSION BUT TODAY WAS MORE PRONOUNCED. SHE URINATED ON HERSELF. ON ARRIVAL SHE IS NOTED TO HAVE A TEMKP OF 100.6. Timing/Duration: other Severity: moderate Improving Factors: nothing Worsening Factors: nothing Associated Symptoms: fever/chills Allergies/Adverse Reactions: Allergies Codeine Allergy (Verified 06/28/18 09:47) Sulfa Antibiotics Allergy (Verified 06/28/18 09:47) Morphine Adverse Reaction (Verified 06/28/18 09:47) Other Makes patient "crazy" Home Medications: Ambulatory Orders Carvedilol [Coreg] 25 mg PO BID 09/02/12 Lisinopril 40 mg PO BID 09/02/12 Omeprazole [Prilosec] 20 mg PO BID 09/02/12 Venlafaxine Xr [Effexor Xr] 75 mg PO DAILY 09/02/12 HYDROcodone 10MG/APAP 325MG [[place] 10/325] 1 tab PO Q6HR PRN 06/17/14 Albuterol Sulfate Nebs [Proventil Nebs] 2.5 mg INH BID 09/20/16 Aspirin [Aspirin EC Low Dose] 81 mg PO DAILY 09/20/16 Calcium Carbonate-Vitamin D [Super Calcium 600+D 400] 1 tab PO BID 06/28/18 Insulin Degludec [Tresiba Flextouch] 20 unit SC DAILY 06/28/18 Potassium 99 mg PO DAILY 06/28/18 Tramadol HCl 50 mg PO TID PRN 06/28/18 amLODIPine BESYLATE [Norvasc] 10 mg PO DAILY 06/28/18 diphenhydrAMINE HCL [Benadryl] 25 mg PO Q4H PRN 06/28/18 Review of Systems - Review of Systems Constitutional: States: fever, weakness EENTM: States: no symptoms reported Respiratory: States: cough Cardiology: States: no symptoms reported Gastrointestinal/Abdominal: States: no symptoms reported Genitourinary: States: other - INCONTINENCE Musculoskeletal: States: no symptoms reported Skin: States: other - OLD BRUISE TO THE RIGHT SIDE OF THE FOREHEAD Neurological: States: weakness, other - CONFUSED Endocrine: States: no symptoms reported Hematologic/Lymphatic: States: no symptoms reported Past Medical History (General) - Patient Medical History Hx Seizures: No Hx Stroke: No Hx Dementia: No Hx Asthma: No Hx of COPD: Yes Hx Cardiac Disorders: No Hx Congestive Heart Failure: No Hx Pacemaker: No Hx Hypertension: Yes Hx Thyroid Disease: No Hx Diabetes: Yes Hx Gastroesophageal Reflux: Yes Hx Renal Disease: No Hx Cancer: No Hx of HIV: No Hx Hepatitis C: No Hx MRSA: No Surgical History: appendectomy, cholecystectomy, Hysterectomy, other - Vaccination History Hx Tetanus, Diphtheria Vaccination: No Hx Influenza Vaccination: No Hx Pneumococcal Vaccination: No - Social History Hx Tobacco Use: Yes Hx Chewing Tobacco Use: No Hx Alcohol Use: No Hx Substance Use: No Hx Substance Use Treatment: No Hx Depression: No Hx Physical Abuse: No Hx Emotional Abuse: No Hx Suspected Abuse: No - Female History Patient : No Family Medical History - Family History Mother Family History: No Known Name: Aries Cavazos Age (years): 53 Living Status: Hx Family Asthma: No Hx Family Congestive Heart Failure: No Hx Family Hypertension: No Hx Family Stroke: No Hx Cardiac Disease: No Hx Family Diabetes: Yes - parents Hx Family Cancer: No Physical Exam - Physical Exam General Appearance: Alert, Comfortable, Other - CONFUSED Eye Exam: bilateral normal ENT Exam: pharynx normal Neck: non-tender, full range of motion, supple, normal inspection Respiratory: no respiratory distress, no accessory muscle use, rhonchi Cardiovascular/Chest: regular rate, rhythm, no edema, no gallop, no JVD, no murmur Peripheral Pulses: radial,right: 2+, radial,left: 2+ Gastrointestinal/Abdominal: normal bowel sounds, non tender, soft, no organomegaly, no pulsatile mass Back Exam: normal inspection Extremities Exam: non-tender Mental Status: alert, other - CONFUSED ON TIME field consultant Exam: normal hearing, normal speech, PERRL Coordination/Gait: normal finger to nose, normal gait Motor/Sensory: no motor deficit, no sensory deficit, no pronator drift Skin Exam: other - BRUISE TO THE RIGHT SIDE OF THE FOREHEAD Progress - Progress Progress: 06/28/18 12:[address] MATASKA-ADMIT - Results/Orders Results/Orders: Laboratory Results WBC 3.7 K/mm3 (4.8-10.8) L 06/28/18 10:04 RBC 4.21 M/mm3 (4.20-5.40) 06/28/18 10:04 Hgb 11.7 gm/dL (12.0-16.0) L 06/28/18 10:04 Hct 35.1 % (36.0-47.0) L 06/28/18 10:04 MCV 83.4 fl (81.0-99.0) 06/28/18 10:04 MCH 27.8 pg (27.0-31.0) 06/28/18 10:04 MCHC 33.3 g/dL (33.0-37.0) 06/28/18 10:04 RDW 17.4 % (11.5-14.5) H 06/28/18 10:04 Plt Count 167 K/mm3 (130-400) 06/28/18 10:04 MPV 8.0 fl (7.40-10.4) 06/28/18 10:04 Absolute Neuts (auto) 2.80 K/uL (1.8-6.8) 06/28/18 10:04 Absolute Lymphs (auto) 0.40 K/uL (1.0-3.4) L 06/28/18 10:04 Absolute Monos (auto) 0.30 K/uL (0.2-0.8) 06/28/18 10:04 Absolute Eos (auto) 0.10 K/uL (0.0-0.4) 06/28/18 10:04 Absolute Basos (auto) 0.00 K/uL (0.0-0.1) 06/28/18 10:04 Neutrophils % 76.3 % (42.0-78.0) 06/28/18 10:04 Lymphocytes % 11.5 % (20.0-50.0) L 06/28/18 10:04 Monocytes % 8.4 % (2.0-9.0) 06/28/18 10:04 Eosinophils % 2.6 % (1.0-5.0) 06/28/18 10:04 Basophils % 1.2 % (0.0-2.0) 06/28/18 10:04 Sodium 127 mmol/L (135-145) L 06/28/18 10:04 Potassium 3.9 mmol/L (3.6-5.0) 06/28/18 10:04 Chloride 96 mmol/L (101-111) L 06/28/18 10:04 Carbon Dioxide 22 mmol/L (21-31) 06/28/18 10:04 Anion Gap 12.9 (12-18) 06/28/18 10:04 BUN 12 mg/dL (7-18) 06/28/18 10:04 Creatinine 1.03 mg/dL (0.6-1.3) 06/28/18 10:04 BUN/Creatinine Ratio 11.7 (10-20) 06/28/18 10:04 Random Glucose 222 mg/dL (70-105) H 06/28/18 10:04 Serum Osmolality 261.8 mOsm/L (275-295) L 06/28/18 10:04 Calcium 8.3 mg/dL (8.4-10.2) L 06/28/18 10:04 Total Bilirubin 0.5 mg/dL (0.2-1.0) 06/28/18 10:04 AST 19 IU/L (10-42) 06/28/18 10:04 ALT 13 IU/L (10-60) 06/28/18 10:04 Alkaline Phosphatase 67 IU/L (42-121) 06/28/18 10:04 Ammonia 19 umol/L (10-35) 06/28/18 10:04 Serum Total Protein 6.9 gm/dL (6.4-8.2) 06/28/18 10:04 Albumin 3.7 g/dl (3.2-5.5) 06/28/18 10:04 Globulin 3.2 gm/dL (2.3-3.5) 06/28/18 10:04 Albumin/Globulin Ratio 1.2 (1.1-1.9) 06/28/18 10:04 Urine Color Yellow (Yellow) 06/28/18 10:37 Urine Appearance Sl cloudy (Clear) 06/28/18 10:37 Urine pH 7.0 (4.5-7.8) 06/28/18 10:37 Ur Specific [place] 1.015 (1.005-1.030) 06/28/18 10:37 Urine Protein 30 mg/dL 06/28/18 10:37 Urine Glucose (UA) 100 mg/dL (Negative) H 06/28/18 10:37 Urine Ketones Negative mg/dL (NEGATIVE) 06/28/18 10:37 Urine Blood Trace-intact (Negative) H 06/28/18 10:37 Urine Nitrite Negative 06/28/18 10:37 Urine Bilirubin Negative (NEGATIVE) 06/28/18 10:37 Urine Urobilinogen 0.2 mg/dL (0.2-1.0) 06/28/18 10:37 Ur Leukocyte Esterase Negative (Negative) 06/28/18 10:37 Urine RBC 3-5 /hpf H 06/28/18 10:37 Urine WBC 0 /hpf 06/28/18 10:37 Ur Epithelial Cells 10-20 /hpf 06/28/18 10:37 Urine Bacteria Rare 06/28/18 10:37 Urine Opiates Screen Positive ng/mL (2000) H 06/28/18 09:47 Urine Barbiturates Negative ng/mL (200) 06/28/18 09:47 Ur Phencyclidine Scrn Negative ng/mL (25) 06/28/18 09:47 U Amphetamin/Meth Scrn Negative ng/mL (1000) 06/28/18 09:47 U Benzodiazepines Scrn Negative ng/mL (200) 06/28/18 09:47 U Cocaine Metab Screen Negative ng/mL (300) 06/28/18 09:47 U Cannabinoids Screen Negative ng/mL (50) 06/28/18 09:47 CT HEAD: NO ACUTE PROCESS NOTED. CXR: NO ACUTE PROCESS Departure - Departure Clinical Impression: Altered mental status, unspecified Qualifiers: Altered mental status type: disorientation Qualified Code(s): R41.0 - Disorientation, unspecified Time of Disposition: 12:23 Disposition: Admit Patient Condition: Good Referrals: Oliverio Estrada MD [Primary Care Provider] - 1-2 Weeks Home Medications: Ambulatory Orders Carvedilol [Coreg] 25 mg PO BID 09/02/12 Lisinopril 40 mg PO BID 09/02/12 Omeprazole [Prilosec] 20 mg PO BID 09/02/12 Venlafaxine Xr [Effexor Xr] 75 mg PO DAILY 09/02/12 HYDROcodone 10MG/APAP 325MG [[place] 10/325] 1 tab PO Q6HR PRN 06/17/14 Albuterol Sulfate Nebs [Proventil Nebs] 2.5 mg INH BID 09/20/16 Aspirin [Aspirin EC Low Dose] 81 mg PO DAILY 09/20/16 Calcium Carbonate-Vitamin D [Super Calcium 600+D 400] 1 tab PO BID 06/28/18 Insulin Degludec [Tresiba Flextouch] 20 unit SC DAILY 06/28/18 Potassium 99 mg PO DAILY 06/28/18 Tramadol HCl 50 mg PO TID PRN 06/28/18 amLODIPine BESYLATE [Norvasc] 10 mg PO DAILY 06/28/18 diphenhydrAMINE HCL [Benadryl] 25 mg PO Q4H PRN 06/28/18 Decision To Admit - Decistion To Admit Decision to Admit Date: 06/28/18 Decision to Admit Time: 12:22
--- NOTE | 2018-06-28 10:50 | CT ---
PROCEDURE: CT Head Without Intravenous Contrast CLINICAL INDICATION: The patient is 77 years years old, Female; head injury-ams TECHNIQUE: Axial computed tomography images of the head/brain without intravenous contrast. Sagittal and coronal reformatted images were created and reviewed. This CT exam was performed using one or more of the following dose reduction techniques: automated exposure control, adjustment of the mA and/or kV according to patient size, and/or use of iterative reconstruction technique. COMPARISON: No relevant prior studies available. FINDINGS: BRAIN: No intracerebral or extracerebral mass lesions are identified. There is patchy hypodensity of the cerebral white matter which is nonspecific but likely secondary to chronic microvascular ischemic changes in end vessel distributions. Small hypodensities consistent with subacute lacunar infarcts and/or perivascular spaces are noted in the left caudate nucleus and bilateral lentiform nuclei. Conner/white matter distinction is maintained. There is no evidence of intracranial hemorrhage. There is no evidence of acute territorial infarct. (It should be noted that acute infarct may not be discernible in the first [address] ) MIDLINE SHIFT: There is no shift of the midline structures. VENTRICLES: There is prominence of the ventricles, sulci, cerebellar folia, and basilar cisterns consistent with volume loss. BONES/JOINTS: There is no acute calvarial abnormality or other discernible acute osseous abnormalities. Benign hyperostosis frontalis is present. SOFT TISSUES: Unremarkable. VASCULATURE: There is atherosclerotic calcification in the siphons of the bilateral internal carotid dominant left arteries. SINUSES: Mild mucoperiosteal thickening is noted in the ethmoid sinuses and inferior right frontal sinus. The remainder of the visualized paranasal sinuses are clear. MASTOID AIR CELLS: The mastoids and middle ears are clear with the exception of trace fluid or mucoperiosteal thickening in the right mastoid which is unchanged. DENTAL: The maxilla and mandible are edentulous. IMPRESSION: 1. No acute intracranial abnormality. (It should be noted that acute infarct may not be discernible in the first [address]) a follow-up head ct or mri is recommended if neurologic symptoms persist. 2. Volume loss. 3. Nonspecific white matter lucency, most likely deep white matter ischemic changes. Demyelination and gliosis also in the differential. 4. ASVD. 5. Subacute lacunar infarcts and/or perivascular spaces as described. 6. Remainder of findings as discussed above. Electronically signed by: Radha Kamara MD 06/28/2018 10:46 AM [facility]
--- NOTE | 2018-06-28 10:50 | RAD ---
EXAM DESCRIPTION: Chest,1 View CLINICAL HISTORY: 77 years Female sob COMPARISON: Portable chest 07/18/2017 TECHNIQUE: A single frontal projection of the chest is obtained. FINDINGS: Heart: Allowing for magnification factors related to AP portable technique and large body habitus , the heart is normal in size and configuration. Vasculature: There is mild tortuosity and atherosclerosis of the aorta. The pulmonary vascularity is normal. Mediastinum: Unremarkable otherwise. No evidence of mass or adenopathy. Lungs: There is no focal consolidation in the lungs. Pleural spaces: There are no pleural effusions. There are no pneumothoraces. Osseous structures: The osseous structures show no discernible acute fractures or areas of osseous destruction or blastic change, although assessment of the spine is limited by underpenetration. Tubes and catheters: None. Upper abdomen: No acute findings. Chest wall: Unremarkable. IMPRESSION: No acute cardiopulmonary abnormality. Remainder of findings as described above. Electronically signed by: Radha Kamara MD 06/28/2018 10:47 AM [facility]
--- NOTE | 2018-06-28 13:19 | HP ---
CHIEF COMPLAINT: Altered mental status and disorientation. HISTORY OF PRESENT ILLNESS: Ms. Cavazos is a 77 year-old female with a significant history of chronic obstructive pulmonary disease, chronic pain with opioid use, and chronic immobility, who lives alone, who presented to the E. R. via family members due to 24 hours of rapidly increasing disorientation and urinating on herself. They state the patient had been well until yesterday evening where she may have acted a little more sleepy than usual. This morning, family members found her and woke her up from bed discovering that she had urinated on herself in the middle of the night. Family endorses she told them she was hollering throughout the night for help, but no one ever came. Family mentioned that she has a Life Alert bracelet on her wrist, but she forgot she had one and never thought about using it. This type of behavior is the type that was worrying the patient's family. They do endorse the patient had a very small fall on June 22, in which she hit the right side of her head. At the time she never lost consciousness and was able to go through her normal activities. She did develop a bruise, although, that is visible today. Otherwise family states she may be coughing a little more than usual, but not surprising due to her smoking and chronic obstructive pulmonary disease status. Upon further questioning, it is discovered that the patient has been on Victoria 10 mg every 4 hours for many months, and was even on a Fentanyl patch prior to that. Family states the primary care physician is currently in the act of trying to wean the patient down on the amount of opioids she requires. She was recently changed from [place] 10 mg every 4 hours, to the same dose but at every 6 hours. They substituted Tramadol 50 mg every [address] of that at the same time. Workup in the E. R. included a temperature of 100.7 with normal to high blood pressure range of 145/50 to 165/70, and saturations of 94 liters of room air. Regarding laboratory, they found she had no white count. Hemoglobin was slightly low but within her normal limits, and platelets were normal. Regarding her chemistry, sodium was low at 127, but corrected to 129 with factoring in elevated glucose, which is at 222. Otherwise rest of chemistry panel normal. Urinalysis was negative for any type of urinary tract infection. Her UDS did show positive opiate screen which we would expect in this case. Given her history of respiratory problems, and the cough in the room, we asked to have a flu test done. It was resulted as a positive Influenza A. Further E. R. workup included a chest x-ray which was negative in totality. Also head CT was completed which showed a handful of small hypodensities that could be found in cerebral white matter which is nonspecific, and likely secondary to chronic microvascular ischemic changes. No other concerning findings on the CT scan. PAST MEDICAL HISTORY: 1. Chronic hypertension. 2. Insulin-dependent diabetes mellitus. 3. Tobacco abuse. 4. Chronic obstructive pulmonary disease. 5. History of left hip fracture. 6. Chronic opioid use. PAST SURGICAL HISTORY: 1. Left hip fracture repair. 2. Hysterectomy (unknown if total or if ovaries and fallopian tubes are left in place). HOME MEDICATIONS: 1. Albuterol nebules. 2. Aspirin 81 mg daily. 3. Calcium carbonate 1 tab b.i.d. 4. Benadryl 25 mg capsule every 4 hours p.r.n. 5. Hydrocodone 10 mg every 6 hours p.r.n. pain. 6. Insulin Degludec 100 injections at 20 units subcutaneous daily. 7. Tramadol 50 mg p.o. t.i.d. p.r.n. pain. 8. Venlafaxine ER 75 mg capsule p.o. daily. 9. Amlodipine Besylate 10 mg p.o. daily. 10. Carvedilol 25 mg tablet p.o. b.i.d. 11. Lisinopril 40 mg tablet p.o. b.i.d. 12. Omeprazole 20 mg capsule p.o. b.i.d. 13. 99 mg tablet potassium p.o. daily. ALLERGIES: CODEINE, SULFA ANTIBIOTICS, MORPHINE. FAMILY HISTORY: SOCIAL HISTORY: Eight to 10 cigarettes per day, much decreased over the last several months. Family denies illicit drug use or alcohol use. REVIEW OF SYSTEMS: GENERAL: Family endorses confusion and disorientation, seemingly to be at her baseline regards sleepiness and necessity of naps. HEAD: Bruise on the right forehead, currently without dentures. CHEST: Slightly productive cough, some shortness of breath. HEART: No chest pain, no palpitations. ABDOMEN: No abdominal soreness, no constipation or diarrhea. NEUROLOGIC: Confusion, denies headaches, denies vision changes. EXTREMITIES: No new swelling or deformities, no muscle rigidity per the family. PHYSICAL EXAMINATION: VITAL SIGNS: Temperature 100.7, heart rate 64, blood pressure 147/53, respiratory rate 18, oxygen saturation 93% on room air. GENERAL: The patient is sleeping in the bed, easily arousable but falls asleep rapidly. HEENT: Old 3 x 3 circular ecchymosis over the right lateral frontal bone with a minor scabbed over half centimeter scab in the center, non-tender to palpation and no masses found under the ecchymosis, the patient without dentures, dry mouth with slight cracking of the tongue, with thick residual from salivation. NECK: No lymphadenopathy, no neck masses, no neck tenderness. CHEST: Diffuse wheezes bilaterally, especially with expiration, some minor rales heard in the bibasilar areas, normal inspiratory effort, slight tachypnea. CARDIOVASCULAR: Normal rate and rhythm, no murmur, no chest wall tenderness. ABDOMEN: Slight tenderness to palpation in the suprapubic region, no masses, normal bowel sounds, negative rebound, negative Sanchez's. EXTREMITIES: Moving all extremities with 4/5 strength, no tenderness over the left hip or any other bony prominences in the lower extremities, pulses normal throughout. NEUROLOGIC: Arousable, oriented to place, time, and person with very adamant directing and awakening, the patient falls asleep quickly, no focal deficits found. LABORATORY: White blood cells 3.7, hemoglobin/hematocrit 11.7/35.1, platelet count 167, RDW slightly elevated at 17.4. Sodium corrected for hyperglycemia is 129, glucose 222, potassium 3.9, chloride 96, carbon dioxide 22, anion gap 12.9, BUN/creatinine 12/1.03. Hemoglobin A1c is 8.6. Serum osmolality is slightly low at 261.8. AST 19, ALT 13, alkaline phosphatase 67, ammonia 19. Total serum protein 6.9, albumin 3.7. Urinalysis with slight increase in glucose and red blood cells, no sing of infection with negative leukocyte esterase and negative nitrite. Toxicology: Urine drug screen positive for opiates only. IMAGING: Head CT 06/28/18: "No acute imaged cranial abnormality, general volume loss, nonspecific white matter lucency, especially in the deep space white matter, likely representing microvascular ischemia that is nonacute." Chest x-ray 06/28/18: No acute cardiopulmonary abnormality. No infiltrates or any sign of consolidation. ASSESSMENT: 1. Acute encephalopathy with unknown cause, potentially due to dehydration from poor oral intake versus serotonin syndrome with recent medication changes. 2. Influenza A positive. 3. Fever, due to problem #1 and/or #2 4. Hyperglycemia, likely due to poor oral choices in the setting of insulin- dependent diabetes mellitus. 5. Tachypnea secondary to problem #1 and/or #2 6. Chronic chronic obstructive pulmonary disease with potential exacerbation in light of Influenza A. 7. Chronic smoking history. 8. Chronic hypertension. 9. Insulin-dependent diabetes mellitus with acute hyperglycemia. PLAN: Will put Ms. Cavazos in the observation unit for 1 or 2 midnights to actively treat several things. First is her respiratory status with Influenza A infection, in light of chronic obstructive pulmonary disease. Based on her exam above, we will start Albuterol nebules p.r.n., along with DuoNeb scheduled q.i.d. This will also include Tamiflu treatment, since it is unknown exactly when she would have developed symptoms per the family. Also will give her incentive spirometry. Regarding the acute encephalopathy, there are several things which may be contributing to this. First off would be potential for serotonin syndrome. She is on Hydrocodone chronically, and had a recent change in her medications which required an addition of Tramadol 50 mg every 8 hours. This change had been completed within the last 5 to 7 days. In light of this, it is also noted that she is on Venlafaxine, an SNRI which commonly lends to a serotonin syndrome type picture. This would be able to explain her tachypnea, fever, disorientation, and slight dehydration status. We will hold her Hydrocodone, Tramadol, and her Venlafaxine while in the hospital. Will treat with Tylenol p.r.n. for pain once she is able to express so. Also to keep in mind is the fact that she has terrible sleep hygiene, and possibly a moderate to severe dysfunction of her circadian rhythm. Per the family, she does sleep 2 or 3 hours at random times through any 24 hour period. This may be contributing to the underlying problems previously mentioned. Regarding her diabetes, will continue her home insulin as well as start her on sliding scale insulin if needed. I scheduled a chest x-ray and morning labs to be done in the morning. After discussion with E. R. physician and the radiologist's,, if she continues to have disorientation and no improvement within 24 hours of admission, a followup CT or MRI would be recommended. Will watch her overnight and see how she progresses. This was discussed with the family in great detail. [facility][id number] [facility]
[2018-06-28] MEDS ORDERED: SODIUM CHLORIDE 0.9% (FLUSH) 10 ML SYG IV PRN (14:18)
[2018-06-28] MEDS ORDERED: DEXTROSE 50% 25 GM/50 ML SYG IV PRN (14:18)
[2018-06-28] MEDS ORDERED: ALBUTEROL SULFATE 2.5 MG/3 ML VIAL NEB PRN (14:18)
[2018-06-28] MEDS ORDERED: SODIUM CHLORIDE 0.9% 1000ML 1,000 ML IVS PRN (14:18)
[2018-06-28] MEDS ORDERED: GLUCAGON INJ 1 MG VIAL SUBCU PRN (14:18)
[2018-06-28] MEDS ORDERED: SODIUM CHLORIDE 0.9% 1000ML 1,000 ML IVS ONE (14:34)
[2018-06-28] MEDS: IV SET AND CAP CHANGE INJ INJ SCH (15:00)
[2018-06-28] MEDS: OSELTAMIVIR 75 MG CAP PO SCH ×2 (15:00→20:11)
[2018-06-28] MEDS: OMEPRAZOLE CAP 20 MG CAP PO SCH (16:37)
[2018-06-28] MEDS: IPRATROPIUM/ALBUTEROL 3 ML VIAL NEB SCH ×2 (16:47→20:00)
[2018-06-28] MEDS: ENOXAPARIN SODIUM 40 MG/0.4 ML SYG SUBCU SCH (17:57)
[2018-06-28] MEDS: INSULIN LISPRO 100 UNITS/ML PEN SUBCU SCH (17:58)
[2018-06-28] MEDS: CARVEDILOL 12.5 MG TAB PO SCH (20:11)
[2018-06-28] MEDS: LISINOPRIL 10 MG TAB PO SCH (20:11)
[2018-06-28] MEDS: ACETAMINOPHEN 325 MG TAB PO PRN (20:11)
[2018-06-29] MEDS: INSULIN LISPRO 100 UNITS/ML PEN SUBCU SCH ×4 (00:10→21:00)
[2018-06-29] MEDS: ACETAMINOPHEN 325 MG TAB PO PRN (03:42)
[2018-06-29] MEDS: OMEPRAZOLE CAP 20 MG CAP PO SCH ×2 (05:56→16:59)
[2018-06-29] MEDS: IPRATROPIUM/ALBUTEROL 3 ML VIAL NEB SCH ×4 (08:50→20:22)
[2018-06-29] MEDS ORDERED: NON-FORMULARY MEDICATION 1 EA MIS (Potassium [Potassium] 99 MG) PO SCH (09:00)
[2018-06-29] MEDS: OSELTAMIVIR 75 MG CAP PO SCH ×2 (09:06→21:01)
[2018-06-29] MEDS: amLODIPine BESYLATE 5 MG TAB PO SCH (09:06)
[2018-06-29] MEDS: LISINOPRIL 10 MG TAB PO SCH ×2 (09:07→21:01)
[2018-06-29] MEDS: CARVEDILOL 12.5 MG TAB PO SCH ×2 (09:07→21:01)
[2018-06-29] MEDS: ENOXAPARIN SODIUM 40 MG/0.4 ML SYG SUBCU SCH (09:07)
[2018-06-29] MEDS: KCL 20 MEQ/NS 1,000 ML IVS PRN (12:30)
--- NOTE | 2018-06-29 22:32 | PN ---
DATE: 06/29/18 SUPERVISING PHYSICIAN: Anastacio Sweet MD SUBJECTIVE: The patient is much more alert this morning. She is not confused. She is able to answer questions without any difficulty. She does seem to be a little bit drowsy but not really lethargic. Her family reports that she is near baseline levels in regard to her mental status OBJECTIVE: VITAL SIGNS: temperature 98.2, pulse 80, blood pressure 157/71, respirations 18, satting 98% on nasal cannula at rest. I's and O's are fairly well balanced with a weight of 60.7 kg. GENERAL: The patient is very pleasant. She is a little sleepy but easily aroused and answers all questions appropriately. She shows no focal deficits. CHEST: Lung sounds today are fairly clear with good inspiratory effort. No obvious wheezing or rales. HEART: Regular rate and rhythm. ABDOMEN: Without any tenderness, soft. Positive bowel sounds. EXTREMITIES: No edema. She moves all extremities ad enrico. NEUROLOGIC: She is a little sleepy but arousable and oriented to person, place, and time, and family members. She shows to be without any focal deficits. LABORATORY: No repeat laboratory. No CBC from yesterday but chemistries today show a persistent low sodium at 128, potassium 3.5, carbon dioxide 19. Blood sugars are ranging between 152 and 216, calcium 8.1. MICROBIOLOGY: Blood cultures remain negative. RADIOLOGY: No additional radiographic studies today. ASSESSMENT: 1. Acute encephalopathy, likely medication induced with combination of Tramadol and Effexor versus a serotonin syndrome from recent medication changes and exacerbation with a moderate hyponatremia with the patient having no previous history of hyponatremia and on no medications other than Effexor that could be resulting in decreased sodium levels. 2. Influenza A positive with continued Tamiflu treatment. 3. Fever, due to problem #1 and/or #2 4. Hyperglycemia, likely due to poor oral choices in the setting of insulin- dependent diabetes mellitus. 5. Tachypnea secondary to problem #1 and/or #2, resolved. 6. Chronic chronic obstructive pulmonary disease with potential exacerbation in light of Influenza A. Continue to monitor with no current obvious signs of exacerbation. 7. Chronic smoking history with continued encouragement for smoking cessation. 8. Chronic hypertension. 9. Insulin-dependent diabetes mellitus with acute hyperglycemia. PLAN: Will need to get a physical therapy assessment on the patient tomorrow as she does live alone to ensure that she is at least baseline levels of her of her physical efforts in efforts that she will be safe once she does discharge home. Will continuing with DuoNeb treatments and Tamiflu. Will hold off on any antibiotics as the patient appears to be continuing to show improvement. Will continue with holding her Effexor. Will continue with Tramadol 50 mg every 8 hours. Will continue with pain management at this point with Tylenol and then reinitiate additional pain management in the morning, or if needed later this afternoon as the patient does show improvement, at this point is not requiring any additional pain management. Will need consideration for continued modification of her pain management given that she appears to have a serotonin syndrome secondary to Tramadol and Effexor combination. Will go ahead and try to correct the sodium given that she is not on any Hydrochlorothiazide or other medicines other than possibly the Effexor that could result in some decrease in her sodium levels. Will ensure her sodium levels are chronic at this point but will go ahead and try to correct those which could be added to her slight confusion and general clinical presentation. Again, will repeat labs in the morning and as the patient shows improvement, hopefully be able to discharge her later tomorrow once she at least has enough evaluation to ensure that she is safe to return home before she discharges and that way she can have followup with Dr. Odonnell for continued management. #[id number] [facility]
[2018-06-30] MEDS: KCL 20 MEQ/NS 1,000 ML IVS PRN ×3 (00:35→23:49)
[2018-06-30] MEDS: OMEPRAZOLE CAP 20 MG CAP PO SCH ×2 (06:18→17:19)
[2018-06-30] MEDS: INSULIN LISPRO 100 UNITS/ML PEN SUBCU SCH ×4 (07:53→21:48)
[2018-06-30] MEDS: LISINOPRIL 10 MG TAB PO SCH ×2 (07:54→21:47)
[2018-06-30] MEDS: amLODIPine BESYLATE 5 MG TAB PO SCH (07:55)
[2018-06-30] MEDS: OSELTAMIVIR 75 MG CAP PO SCH ×2 (07:55→21:47)
[2018-06-30] MEDS: CARVEDILOL 12.5 MG TAB PO SCH ×2 (07:55→21:47)
[2018-06-30] MEDS: ENOXAPARIN SODIUM 40 MG/0.4 ML SYG SUBCU SCH (07:55)
[2018-06-30] MEDS: ACETAMINOPHEN 325 MG TAB PO PRN ×2 (08:01→15:16)
[2018-06-30] MEDS: IPRATROPIUM/ALBUTEROL 3 ML VIAL NEB SCH ×4 (08:20→19:20)
[2018-06-30] MEDS ORDERED: LOPERAMIDE CAP 2 MG CAP PO ONE (11:06)
[2018-06-30] MEDS ORDERED: VENLAFAXINE HCL TAB 75 MG TAB ONE (11:33)
[2018-06-30] MEDS: VENLAFAXINE HCL TAB 75 MG TAB PO SCH (11:42)
--- NOTE | 2018-06-30 18:53 | PN ---
DATE: 06/30/18 SUPERVISING PHYSICIAN: Neel Mccoy M.D. SUBJECTIVE: The patient is doing much better this morning. She is back to her baseline level in regards to mental status and looks like back to her near levels of normal activity, although still weak. I did discuss with her her need to go into a structured rehab program and she has voiced that she would like to go [facility] if possible. I also discussed with her that we would still work to return her medication regimen back to what it was prior to admission, but we will hold Tramadol and decrease her Effexor dose, and resume her [place] for pain control. Her son is at the bedside and both the patient and family are in agreement with the plan of care. The patient complains of several bouts of diarrhea this morning which more likely is related to her Tamiflu. OBJECTIVE: VITAL SIGNS: Temperature 97.6, pulse 73, blood pressure 120/69, respirations 18, satting 97% on nasal cannula and 92% on room air at rest. I's and O's show she has had a couple of bowel movements with some diarrhea. Weight is 60.7. CHEST: Lung sounds remain clear, just diminished towards the bases. HEART: Regular rate and rhythm. ABDOMEN: Soft, non-tender. Positive bowel sounds. EXTREMITIES: Without any edema. NEUROLOGIC: She is alert and oriented times three, back to baseline levels with no focal deficits noted. LABORATORY: White count 6,900, hemoglobin 11.5, hematocrit 34.1, platelet count 144,000. Differential shows to be without a left shift. Chemistries show an improving sodium at 130, potassium 3.7, carbon dioxide is low at 18, BUN 12, creatinine 0.73, blood sugars remain fairly elevated range of 145 to 274. Serum osmolality is 265, calcium 7.9. MICROBIOLOGY: Blood cultures remain negative at 24 hours. RADIOLOGY: No additional radiographic studies. ASSESSMENT: 1. Acute encephalopathy, probably medication induced from a combination of Tramadol, Effexor and [place] with some concerns for possible serotonin syndrome with the patient showing improvement with stopping all 3 medications as well as there was some possibility that there was some exacerbation due to some moderate hyponatremia with the patient not having any chronic history of hyponatremia, although she is on Effexor which could result in some decreased sodium levels. 2. Influenza A pneumonitis on continued Tamiflu with some resulting diarrhea. 3. Fever, due to problem #1 and/or #2 now afebrile for 24 hours. 4. Hyperglycemia due to poor oral choices in the setting of insulin-dependent diabetes mellitus. 5. Tachypnea secondary to problem #1 and/or #2, resolved. 6. Chronic chronic obstructive pulmonary disease with exacerbation from Influenza Will continue to monitor and ensure she continues to clinically improve. 7. History of chronic smoking with nicotine addiction. Will continue to encourage smoking cessation. 8. Chronic hypertension showing to be stable. 9. Insulin-dependent diabetes mellitus with acute hyperglycemia. PLAN: I did discuss with the patient again need for some continued rehab and she has voiced that she would like to go to [facility]. This will be initiated for consultation and should she get accepted, hopefully be able to discharge tomorrow. Until she does transition to outpatient management, will go ahead and resume her Effexor but at a lower dose at 37.5 mg on immediate release with holding her Tramadol, but reinitiating her [place]. She has had a physical therapy evaluation and she is weak but near her baseline levels, but would certainly benefit from ongoing therapy. Will await results of her consultation with [facility] and will closely monitor her mental status with the resuming of above mentioned medications. Her sodium levels seems to be improving. Will go ahead and continue maintenance fluids with the patient having diarrhea. Will also give her some Imodium in efforts to hopefully stop the diarrhea, but given that she is positive for flu A and advanced age and COPD, will continue with the Tamiflu unless she continues to show problematic. Until she can transition to outpatient management hopefully then to be admitted to [facility], will continue to monitor and treat as needed and once discharged she will need close followup with Dr. Odonnell to continue management of her pain management. [facility][id number] [facility]
[2018-07-01] MEDS: HYDROcodone 10MG/APAP 325MG 1 EA TAB PO PRN ×3 (03:00→21:20)
[2018-07-01] MEDS: OMEPRAZOLE CAP 20 MG CAP PO SCH ×2 (06:46→17:08)
[2018-07-01] MEDS ORDERED: VENLAFAXINE HCL TAB 75 MG TAB ONE (07:49)
[2018-07-01] MEDS: amLODIPine BESYLATE 5 MG TAB PO SCH (08:10)
[2018-07-01] MEDS: CARVEDILOL 12.5 MG TAB PO SCH ×2 (08:10→21:14)
[2018-07-01] MEDS: VENLAFAXINE HCL TAB 75 MG TAB PO SCH (08:11)
[2018-07-01] MEDS: LISINOPRIL 10 MG TAB PO SCH ×2 (08:11→21:15)
[2018-07-01] MEDS: IPRATROPIUM/ALBUTEROL 3 ML VIAL NEB SCH ×4 (08:11→19:50)
[2018-07-01] MEDS: ASPIRIN (ENTERIC COATED) 81 MG TAB PO SCH (08:12)
[2018-07-01] MEDS: OSELTAMIVIR 75 MG CAP PO SCH ×2 (08:12→21:15)
[2018-07-01] MEDS: ENOXAPARIN SODIUM 40 MG/0.4 ML SYG SUBCU SCH (08:12)
[2018-07-01] MEDS: INSULIN LISPRO 100 UNITS/ML PEN SUBCU SCH ×4 (08:19→21:14)
[2018-07-01] MEDS: IV SET AND CAP CHANGE INJ INJ SCH (16:38)
--- NOTE | 2018-07-01 20:28 | PN ---
DATE: 07/01/18 SUPERVISING PHYSICIAN: Neel Mccoy M.D. SUBJECTIVE: The patient reports that after we stopped the Tamiflu she is no longer having diarrhea. We discussed again going to [facility] which she is on board with. We are just waiting on the final confirmation of referral. I did decrease her Effexor dose and held her Tramadol, and we utilized [place] for pain control which seems to be doing okay. She has had no further episodes of confusion or somnolence. OBJECTIVE: VITAL SIGNS: Temperature 97.7, pulse 66, blood pressure 121/76, respirations 16, satting 98% on room air. I and O balance is 988 with 2338 in, 1850 out Weight 60.7 kg. GENERAL: The patient is comfortable. No acute distress. Alert and visiting with her family. CHEST: Lungs are clear to auscultation, just slightly diminished towards the bases. She did have a very hoarse voice but shows no obvious respiratory compromise. HEART: Regular rate and rhythm. ABDOMEN: Soft, non-tender. Positive bowel sounds. EXTREMITIES: Without any edema. NEUROLOGIC: She is alert and oriented times three. LABORATORY: Chemistries today show an improved sodium at 132, potassium 3.6, BUN 11, creatinine 0.71. Blood sugars ranging between 157 and 309 with calcium 7.7. MICROBIOLOGY: Blood cultures remain negative at 48 hours. RADIOLOGY: No radiographic studies for review. ASSESSMENT: 1. Acute encephalopathy, probably medication induced from Tramadol, Effexor and [place] combination with remote concerns for possible serotonin syndrome now with the patient showing improvement after stopping all Tramadol and decreasing Effexor, and resuming [place]. 2. Mild hyponatremia possibly contributing to #1 showing to be returning to baseline with fluids. 3. Influenza A pneumonitis showing improvement but requiring discontinuing Tamiflu secondary to diarrhea and concerns for possibly exacerbating #1. 4. Fever secondary to problem #1 and/or #2 now remaining afebrile for greater than 24 hours. 5. Hyperglycemia due to poor oral choices and being an insulin-dependent diabetic. 6. Tachypnea secondary to #1 and/or #2, resolved. 7. Chronic obstructive pulmonary disease with exacerbation due to Influenza A with no current evidence of a secondary pneumonia. 8. History of chronic nicotine abuse in a smoker. Will continue to encourage to stop smoking. 9. Chronic hypertension showing to be stable. 10. Insulin-dependent diabetes mellitus with acute hyperglycemia. PLAN: Will continue to monitor the patient closely today with the modification of her Effexor and the medication regimen for her pain. At this point she seems to have good pain control. She is in agreement to go to [facility] in the morning once the referral is complete. On discharge, her dose of Effexor will be at 37.5 immediate release daily to be monitored by Dr. Odonnell as well as will hold the Tramadol and continue with [place]. I have saline locked her. If she continues to improve clinically, will anticipate discharging tomorrow. Until then continue to monitor and treat as needed. Once transitioned to outpatient management, she will need followup with Dr. Odonnell again for continued management of her pain medication regimen. [facility][id number] [facility]
[2018-07-02 06:26] VITALS: BP 147/63; TEMP 97.9
[2018-07-02] MEDS: OMEPRAZOLE CAP 20 MG CAP PO SCH (06:43)
[2018-07-02] MEDS ORDERED: VENLAFAXINE HCL TAB 75 MG TAB ONE (07:43)
[2018-07-02] MEDS: INSULIN LISPRO 100 UNITS/ML PEN SUBCU SCH ×2 (07:48→11:33)
[2018-07-02] MEDS: HYDROcodone 10MG/APAP 325MG 1 EA TAB PO PRN (07:52)
[2018-07-02] MEDS: IPRATROPIUM/ALBUTEROL 3 ML VIAL NEB SCH (08:50)
[2018-07-02] MEDS: amLODIPine BESYLATE 5 MG TAB PO SCH (09:14)
[2018-07-02] MEDS: ENOXAPARIN SODIUM 40 MG/0.4 ML SYG SUBCU SCH (09:15)
[2018-07-02] MEDS: ASPIRIN (ENTERIC COATED) 81 MG TAB PO SCH (09:15)
[2018-07-02] MEDS: CARVEDILOL 12.5 MG TAB PO SCH (09:15)
[2018-07-02] MEDS: VENLAFAXINE HCL TAB 75 MG TAB PO SCH (09:15)
[2018-07-02] MEDS: OSELTAMIVIR 75 MG CAP PO SCH (09:16)
[2018-07-02] MEDS: LISINOPRIL 10 MG TAB PO SCH (09:16)
[2018-07-02 12:18] VITALS: O2SAT 98
--- NOTE | 2018-07-02 20:30 | DS ---
SUPERVISING PHYSICIAN: Neel Mccoy M.D. ADMISSION DIAGNOSIS: 1. Acute encephalopathy. 2. Influenza, type A positive. 3. Fever secondary to #2 4. Diabetes mellitus. 5. Chronic chronic obstructive pulmonary disease. 6. Nicotine dependency. 7. Chronic hypertension. DISCHARGE DIAGNOSIS: 1. Acute encephalopathy. 2. Influenza, type A positive. 3. Fever secondary to #2 4. Diabetes mellitus. 5. Chronic chronic obstructive pulmonary disease. 6. Nicotine dependency. 7. Chronic hypertension. HOSPITAL COURSE: This is a 77 year-old female with a history of chronic obstructive pulmonary disease and chronic pain with opioid use and chronic immobility, who presented to the Emergency Room due to disorientation and incontinence. Apparently the family states she was feeling well until the day prior to admission when she acted more sleepy than usual. Family found her and woke her up from bed discovering that she had been incontinent of urine in the middle of the night. Apparently she had a history of a fall back on the 22 of June as well where she hit her head, but with no loss of consciousness. In the E. R., her workup included vital signs that showed her temperature of 100.7. Her vital signs were stable. Laboratory showed she had no white count. Chemistry is unremarkable except for she did have a low sodium at 127 and glucose was 222. UDS was positive for opiates. Flu test was done and she was positive for flu A. Chest x-ray did not show any acute abnormalities. CT scan of the brain did not show any acute findings. She was admitted for the above reasons. Over the last 4 days she has step-coleman improved. Her Tramadol was discontinued. Her Effexor dose was reduced. This seems to have helped her mentation in addition to less often dosing of her [place]. Today, she is awake and alert. She did have some body pain this morning but responded well to the p.o. [place]. She has actually been evaluated by [facility] and was accepted, and will go there today. I have continued her home medications except for the Tramadol and I have resumed a reduced dose of her Effexor as well. She does have a reduced frequency of the [place] as well and taking this will help with her mentation. She will followup with Dr. Odonnell in outpatient as well. #[id number] [facility]
== END 2018-07-02 11:59 | DRG 193 ==
LOC: ER 09:35 → MS 13:16
PROVIDERS: ADMIT Family Medicine; ATTEND Nurse Practitioner
DX: J10.1 Influenza due to other identified influenza virus with other respiratory manifestations (principal); G92 Toxic encephalopathy; J44.1 Chronic obstructive pulmonary disease with (acute) exacerbation; E87.1 Hypo-osmolality and hyponatremia; T40.4X5A Adverse effect of other synthetic narcotics, initial encounter; T43.215A Adverse effect of selective serotonin and norepinephrine reuptake inhibitors, initial encounter; T40.2X5A Adverse effect of other opioids, initial encounter; E11.65 Type 2 diabetes mellitus with hyperglycemia; R19.7 Diarrhea, unspecified; G47.20 Circadian rhythm sleep disorder, unspecified type; I10 Essential (primary) hypertension; G89.29 Other chronic pain; F17.210 Nicotine dependence, cigarettes, uncomplicated; Y92.009 Unspecified place in unspecified non-institutional (private) residence as the place of occurrence of the external cause; Z79.891 Long term (current) use of opiate analgesic; Z79.4 Long term (current) use of insulin; Z79.82 Long term (current) use of aspirin; Z79.899 Other long term (current) drug therapy; Z88.5 Allergy status to narcotic agent; Z88.2 Allergy status to sulfonamides

== ENCOUNTER → 2018-10-14 | Outpatient (CLI) | payer MEDICARE | LOC: LAB.O 07:18 | PROVIDERS: ATTEND Internal Medicine Endocrinology, Diabetes & Metabolism | DX: E87.1 Hypo-osmolality and hyponatremia (principal); R53.83 Other fatigue; R53.1 Weakness; R11.0 Nausea; Z78.0 Asymptomatic menopausal state ==

== ENCOUNTER 2019-01-03 16:31 | Emergency (ER) | payer MEDICARE ==
--- NOTE | 2019-01-03 17:48 | RAD ---
EXAM DESCRIPTION: XR Femur, Right CLINICAL HISTORY: 78 years Female fall at home with pain TECHNIQUE: Two views of the right femur are provided. COMPARISON: No prior exams provided for comparison. FINDINGS: There is no acute right femoral fracture or dislocation. The right hip appears normal without avascular necrosis. Minimal tricompartmental osteoarthritis at the right knee. Extensive atherosclerotic calcifications. No aggressive osseous lesion. IMPRESSION: No acute findings in the right femur. Electronically signed by: Shell Morgan MD 01/03/2019 5:47 PM CDT
--- NOTE | 2019-01-03 17:49 | RAD ---
EXAM DESCRIPTION: XR Knee, Right 1 or 2 Views CLINICAL HISTORY: 78 years Female fall at home with pain TECHNIQUE: Three views of the right knee are provided. COMPARISON: No prior exams provided for comparison. FINDINGS: There is no acute right knee fracture, dislocation, or suprapatellar joint effusion. Minimal tricompartmental osteophytes. No aggressive osseous lesion. Extensive atherosclerotic calcifications. IMPRESSION: No acute findings in the right knee. Electronically signed by: Shell Morgan MD 01/03/2019 5:47 PM CDT
--- NOTE | 2019-01-03 18:06 | CT ---
PROCEDURE: CT Lumbar Spine CLINICAL HISTORY: 78 years Female fall at home with pain TECHNIQUE: Contiguous axial CT images obtained through the lumbar spine without IV contrast. Coronal and sagittal reformatted images also provided. This CT exam was performed according to our departmental dose-optimization program, which includes one or more of the following dose reduction techniques: automated exposure control, adjustment of the mA and/or kV according to patient size, and/or use of iterative reconstruction technique. COMPARISON: No prior exams provided for comparison. FINDINGS: There is no acute lumbar fracture. There is a chronic L5 compression deformity with greater than 50% loss of height anteriorly and 4 mm of retropulsion. There is dextroconvex curvature of the lumbar spine with mild right lateral listhesis of L3 on L4 and L4 on L5. There is moderate to severe scattered multilevel degenerative disc disease and facet arthrosis. Patient is osteoporotic. No aggressive osseous lesion. Mild degenerative changes at both sacroiliac joints. Nonspecific thickening of the adrenal glands. Infrarenal abdominal aortic aneurysm measures 3.1 cm. No visualized periaortic hemorrhage. At T11-L2, there is no central canal or neural foraminal stenosis. At L2-L3, there is a moderate diffuse disc osteophyte complex eccentric to the left with narrowing of the left lateral recess and moderate left neural foraminal stenosis. At L3-L4, there is a moderate diffuse disc osteophyte complex eccentric to the left with bilateral facet arthrosis. Mild central canal stenosis with moderate left neural foraminal stenosis. At L4-L5, there is retropulsion with a moderate diffuse disc osteophyte complex and moderate bilateral facet arthrosis. There is moderate central canal stenosis with moderate bilateral neural foraminal stenosis. At L5-S1, there is mild right neural foraminal narrowing. IMPRESSION: No acute lumbar spine injury. Chronic L5 compression fracture. Scoliosis with chronic multilevel degenerative changes. Central canal and neural foraminal stenoses as described. 3.1 cm infrarenal abdominal aortic aneurysm should be followed up every three years. Electronically signed by: Shell Morgan MD 01/03/2019 6:04 PM CDT
--- NOTE | 2019-01-03 18:26 | CT ---
PROCEDURE: CT Pelvis CLINICAL HISTORY: 78 years Female fall at home with pain TECHNIQUE: Contiguous axial images obtained through the pelvis without IV contrast. Coronal and sagittal reformatted images provided. This CT exam was performed according to our departmental dose-optimization program, which includes one or more of the following dose reduction techniques: automated exposure control, adjustment of the mA and/or kV according to patient size, and/or use of iterative reconstruction technique. COMPARISON: No prior exams provided for comparison. FINDINGS: Prior open reduction internal fixation of a now-healed left intertrochanteric proximal femoral fracture utilizing an intramedullary quincy and a decompression nail. There is no visualized acute pelvic or hip fracture. There joints are preserved bilaterally. There is no evidence of avascular necrosis of either femoral head. Mild to moderate chronic degenerative changes in the lower lumbar spine and at both sacroiliac joints. No visualized soft tissue hemorrhage. No free fluid in the pelvis. Extensive atherosclerosis. Prior hysterectomy. Mild colonic constipation. IMPRESSION: No acute injury in the pelvis. Electronically signed by: Shell Morgan MD 01/03/2019 6:25 PM CDT
[2019-01-03 18:34] VITALS: O2SAT 97
--- NOTE | 2019-01-03 18:38 | ED.PDOC ---
History of Present Illness - General Chief Complaint: Trauma Stated Complaint: fall; right hip pain Time Seen by Provider: 01/03/19 16:32 Source: patient Exam Limitations: no limitations - History of Present Illness Initial Comments: the patient is a 78-year-old female who slipped and fell in her kitchen. She is complaining of some low back pain and right hip pain. Actually by the time she arrives here she is not complaining of any pain as she had 50 g of fentanyl with EMS. She is pleasant and cooperative. She actually moves the right lower extremity quite well. She has no pinpoint tenderness to palpation on the back at this point. No obvious new deformity. Passive and active range of motion of the right lower extremity seem to be within normal limits given her age and previous surgeries. She did not hit her head. No syncope. She has had multiple falls in the past and does normally use a walker. Timing/Duration: momentarily Severity: moderate Improving Factors: medication Worsening Factors: nothing Associated Symptoms: denies symptoms Allergies/Adverse Reactions: Allergies Codeine Allergy (Verified 06/28/18 14:11) Sulfa Antibiotics Allergy (Verified 06/28/18 14:11) Morphine Adverse Reaction (Verified 06/28/18 14:11) Other Makes patient "crazy" Home Medications: Ambulatory Orders Carvedilol [Coreg] 25 mg PO BID 09/02/12 Lisinopril 40 mg PO BID 09/02/12 Omeprazole [Prilosec] 20 mg PO BID 09/02/12 Aspirin [Aspirin EC Low Dose] 81 mg PO DAILY 09/20/16 Insulin Degludec [Tresiba Flextouch] 20 unit SC DAILY 06/28/18 Potassium 99 mg PO DAILY 06/28/18 amLODIPine BESYLATE [Norvasc] 10 mg PO DAILY 06/28/18 Hofdcpiqdlcdn-Snoe-Safkiqkrvd [Fioricet] 1 ea PO Q8H PRN #21 tab 01/03/19 Hydrocodone-Acetaminophen [Ford 5-325 mg] 1 tab PO Q8H 01/03/19 raNITIdine HCL [Zantac] 300 mg PO DAILY 01/03/19 Review of Systems - Review of Systems Constitutional: States: no symptoms reported EENTM: States: no symptoms reported Respiratory: States: no symptoms reported Cardiology: States: no symptoms reported Gastrointestinal/Abdominal: States: no symptoms reported Genitourinary: States: no symptoms reported Musculoskeletal: States: back pain Skin: States: no symptoms reported Neurological: States: no symptoms reported Endocrine: States: no symptoms reported All other Systems: No Change from Baseline Past Medical History (General) - Patient Medical History Hx Seizures: No Hx Stroke: No Hx Dementia: No Hx Asthma: No Hx of COPD: No Hx Cardiac Disorders: No Hx Congestive Heart Failure: No Hx Pacemaker: No Hx Hypertension: Yes Hx Thyroid Disease: No Hx Diabetes: Yes Hx Gastroesophageal Reflux: Yes Hx Renal Disease: No Hx Cancer: No Hx of HIV: No Hx Hepatitis C: No Hx MRSA: No Surgical History: appendectomy, cholecystectomy, other - Vaccination History Hx Tetanus, Diphtheria Vaccination: No Hx Influenza Vaccination: Yes - 2018 Hx Pneumococcal Vaccination: Yes - 2018 - Social History Hx Tobacco Use: Yes Hx Chewing Tobacco Use: No Hx Alcohol Use: No Hx Substance Use: No Hx Substance Use Treatment: No Hx Depression: No Hx Physical Abuse: No Hx Emotional Abuse: No Hx Suspected Abuse: No - Female History Patient : No Family Medical History - Family History Mother Family History: No Known Name: Aries Cavazos Age (years): 53 Living Status: Hx Family Asthma: No Hx Family Congestive Heart Failure: No Hx Family Hypertension: No Hx Family Stroke: No Hx Cardiac Disease: No Hx Family Diabetes: Yes - parents Hx Family Cancer: No Physical Exam - Physical Exam General Appearance: Alert, Comfortable, No apparent distress Eye Exam: bilateral normal Ears, Nose, Throat: hearing grossly normal, normal ENT inspection Neck: full range of motion, supple Respiratory: lungs clear, normal breath sounds, no respiratory distress, no accessory muscle use Cardiovascular/Chest: normal peripheral pulses, no edema, other - regular rate Peripheral Pulses: radial,right: 2+, radial,left: 2+, dorsalis pedis,right: 2+, dorsalis pedis,left: 2+ Gastrointestinal/Abdominal: non tender, soft Rectal Exam: deferred Back Exam: no CVA tenderness, no vertebral tenderness Extremity: normal range of motion, non-tender, normal inspection, no pedal edema, normal capillary refill Neurologic: rehabilitator II-XII nml as tested, alert, normal mood/affect, oriented x 3 Skin Exam: normal color Comments: Vital Signs - 24 hr 01/03/19 01/03/19 01/03/19 16:36 17:27 18:27 Temperature 98.6 F Pulse Rate [ 68 63 63 left brachial] Respiratory 20 16 16 Rate Blood Pressure 147/64 126/61 132/66 [left brachial] O2 Sat by Pulse 97 98 97 Oximetry Progress - Progress Progress: 01/03/19 18:39 the patient is a 78-year-old female presenting to the emergency room secondary to having fallen at home. Immediately after the fall she reports very significant pain in her right hip and femur along with pain in her low back. She has had previous surgery on the right hip and she has had multiple compression fractures in the past in her back. X-rays of the right knee and femur show no evidence of any new fracture or dislocation. CT scan of the pelvis and lumbar spine showed no acute pathology either. She does have numerous chronic changes but nothing new. She has a 3.1 cm abdominal aortic aneurysm. This can be followed with her primary care doctor. She should expect to be very sore for the next couple of weeks. She does need to plan on using her walker to prevent falls. the patient has demonstrated an ambulatory status prior to discharge. ER warnings were given. 01/03/19 18:41 michelle keller [id number] Departure - Departure Clinical Impression: Acute low back pain due to trauma Fall at home Qualifiers: Encounter type: initial encounter Qualified Code(s): W19.XXXA - Unspecified fall, initial encounter; Y92.009 - Unspecified place in unspecified non- institutional (private) residence as the place of occurrence of the external cause Strain of right hip Qualifiers: Encounter type: initial encounter Qualified Code(s): S76.011A - Strain of muscle, fascia and tendon of right hip, initial encounter Disposition: Discharge to Home or Self Care Condition: Fair Departure Forms: ED Discharge - Pt. Copy, Patient Portal Self Enrollment Instructions: DI for Trauma Diet: regular diet Activity: increase activity as tolerated Referrals: Koby Odonnell MD [Primary Care Provider] - 1-2 Weeks Prescriptions: Djpkzsnhathbg-Kzgq-Bmglkseqsw [Fioricet] 1 ea PO Q8H PRN #21 tab PRN Reason: Pain Home Medications: Ambulatory Orders Carvedilol [Coreg] 25 mg PO BID 09/02/12 Lisinopril 40 mg PO BID 09/02/12 Omeprazole [Prilosec] 20 mg PO BID 09/02/12 Aspirin [Aspirin EC Low Dose] 81 mg PO DAILY 09/20/16 Insulin Degludec [Tresiba Flextouch] 20 unit SC DAILY 06/28/18 Potassium 99 mg PO DAILY 06/28/18 amLODIPine BESYLATE [Norvasc] 10 mg PO DAILY 06/28/18 Dkcubxhysklaj-Akbg-Lrakimjskq [Fioricet] 1 ea PO Q8H PRN #21 tab 01/03/19 Hydrocodone-Acetaminophen [Ford 5-325 mg] 1 tab PO Q8H 01/03/19 raNITIdine HCL [Zantac] 300 mg PO DAILY 01/03/19 Additional Instructions: the patient is a 78-year-old female presenting to the emergency room secondary to having fallen at home. Immediately after the fall she reports very significant pain in her right hip and femur along with pain in her low back. She has had previous surgery on the right hip and she has had multiple compression fractures in the past in her back. X-rays of the right knee and femur show no evidence of any new fracture or dislocation. CT scan of the pelvis and lumbar spine showed no acute pathology either. She does have numerous chronic changes but nothing new. She has a 3.1 cm abdominal aortic aneurysm. This can be followed with her primary care doctor. She should expect to be very sore for the next couple of weeks. She does need to plan on using her walker to prevent falls. ER warnings were given.
[2019-01-03 19:04] VITALS: BP 124/59; TEMP 97.6
== END 2019-01-03 19:04 | disposition home or self-care (01) ==
LOC: ER 16:31
DX: S76.011A Strain of muscle, fascia and tendon of right hip, initial encounter (principal); G89.11 Acute pain due to trauma; M54.5 Low back pain; I71.4 Abdominal aortic aneurysm, without rupture; E11.9 Type 2 diabetes mellitus without complications; K21.9 Gastro-esophageal reflux disease without esophagitis; I10 Essential (primary) hypertension; Z87.891 Personal history of nicotine dependence; Z79.899 Other long term (current) drug therapy; Z79.82 Long term (current) use of aspirin; Z79.4 Long term (current) use of insulin; Z88.5 Allergy status to narcotic agent; Z88.2 Allergy status to sulfonamides; Z91.81 History of falling; W01.0XXA Fall on same level from slipping, tripping and stumbling without subsequent striking against object, initial encounter; Y92.000 Kitchen of unspecified non-institutional (private) residence as the place of occurrence of the external cause

== ENCOUNTER 2019-02-15 09:29 | Observation (INO) | payer MEDICARE ==
[2019-02-15] MEDS ORDERED: SODIUM CHLORIDE 0.9% 1000ML 1,000 ML IVS ONE (10:38)
--- NOTE | 2019-02-15 10:56 | CT ---
EXAM: Head CLINICAL HISTORY: delirium COMPARISON STUDY: CT head from June 28, 2018 TECHNICAL: Non-contrasted CT images of the brain were performed. FINDINGS: There is mild diffuse cerebral and cerebellar atrophy. There is mild periventricular white matter low-density changes suggesting microvascular disease. Small basal ganglion lacunar infarcts are present. There is no intracranial hemorrhage, mass, or mass effect. There are no imaging findings that would suggest an acute territorial infarction. The calvarium is intact. Structure behind the right ear could be a cyst or keloid.. IMPRESSION: MILD ATROPHY AND MICROVASCULAR WHITE MATTER CHANGES WITHOUT CHANGES OF AN ACUTE INTRACRANIAL ABNORMALITY. ACUTE INFARCT MAY BE INAPPARENT ON A BACKGROUND OF MICROVASCULAR DISEASE. MRI CAN BE PERFORMED IF CLINICALLY INDICATED. This exam was performed according to our departmental dose-optimization program, which includes automated exposure control, adjustment of the mA and/or kV according to patient size and/or use of iterative reconstruction technique. Electronically signed by: Bill Saleh MD 02/15/2019 10:55 AM CDT
--- NOTE | 2019-02-15 11:16 | RAD ---
EXAM: XR Abdomen, 2 Views and XR Chest, 1 View CLINICAL HISTORY: confusion, mild abd pain TECHNIQUE: Frontal view of the chest, frontal view of the abdomen/pelvis and upright or decubitus view of the abdomen. COMPARISON: No relevant prior studies available. FINDINGS: Limitations: None. Lungs: Unremarkable. No consolidation. Pleural space: Unremarkable. No pneumothorax. Heart: Unremarkable. No cardiomegaly. Mediastinum: Unremarkable. Intraperitoneal space: No free air. Gastrointestinal tract: Air and stool scattered throughout nondilated intestinal loops. No distention. Bones/joints: Convex right scoliotic curvature of the spine. Diffuse degenerative changes of the spine present. Vasculature: Atherosclerotic calcification noted. IMPRESSION: No acute findings in the chest, abdomen or pelvis. Electronically signed by: Kandi Vilchis MD 02/15/2019 11:14 AM CDT
--- NOTE | 2019-02-15 11:34 | ED.PDOC ---
History of Present Illness - General Chief Complaint: General Stated Complaint: lethargy,confusion Time Seen by Provider: 02/15/19 09:34 Source: patient Exam Limitations: no limitations - History of Present Illness Initial Comments: the patient is a 78-year-old female brought in secondary to what appears to be delirium. Today and yesterday the patient has been more confused. No focal neurological changes. No definite difficulties with speech or swallowing. No new gait issues. Looking back over her history she has had 2 previous episodes over the last few years like this. No syncope. No falls. She did take her morning hydrocodone. She does have chronic back pain. No sore throat. No nausea or vomiting. No rash. No headache. Timing/Duration: 24 hours Severity: moderate Improving Factors: nothing Worsening Factors: nothing Associated Symptoms: denies symptoms Allergies/Adverse Reactions: Allergies Codeine Allergy (Verified 06/28/18 14:11) Sulfa Antibiotics Allergy (Verified 06/28/18 14:11) Morphine Adverse Reaction (Verified 06/28/18 14:11) Other Makes patient "crazy" Home Medications: Ambulatory Orders Carvedilol [Coreg] 25 mg PO BID 09/02/12 Lisinopril 40 mg PO BID 09/02/12 Omeprazole [Prilosec] 20 mg PO BID 09/02/12 Aspirin [Aspirin EC Low Dose] 81 mg PO DAILY 09/20/16 Insulin Degludec [Tresiba Flextouch] 32 unit SC BEDTIME 06/28/18 Potassium 99 mg PO DAILY 06/28/18 amLODIPine BESYLATE [Norvasc] 10 mg PO DAILY 06/28/18 Hydrocodone-Acetaminophen [Bassett 5-325 mg] 1 tab PO Q6H 01/03/19 Cholecalciferol [Vitamin D3] 400 unit PO DAILY 02/15/19 Meloxicam 15 mg PO DAILY 02/15/19 Ranitidine HCl 300 mg PO DAILY 02/15/19 Review of Systems - Review of Systems Constitutional: States: malaise, other - the patient is drowsy and does have a poor attention span. She does know where she is in what is going on. She will answer questions that are simple when she is made to focus. EENTM: States: no symptoms reported Respiratory: States: no symptoms reported Cardiology: States: no symptoms reported Gastrointestinal/Abdominal: States: no symptoms reported Genitourinary: States: no symptoms reported Musculoskeletal: States: see HPI Skin: States: no symptoms reported Neurological: States: see HPI Endocrine: States: no symptoms reported All other Systems: No Change from Baseline Past Medical History (General) - Patient Medical History Hx Seizures: No Hx Stroke: No Hx Dementia: No Hx Asthma: No Hx of COPD: No Hx Cardiac Disorders: No Hx Congestive Heart Failure: No Hx Pacemaker: No Hx Hypertension: Yes Hx Thyroid Disease: No Hx Diabetes: Yes Hx Gastroesophageal Reflux: Yes Hx Renal Disease: No Hx Cancer: No Hx of HIV: No Hx Hepatitis C: No Hx MRSA: No Surgical History: appendectomy, cholecystectomy - Vaccination History Hx Tetanus, Diphtheria Vaccination: No Hx Influenza Vaccination: Yes - 2018 Hx Pneumococcal Vaccination: Yes - 2018 - Social History Hx Tobacco Use: Yes Hx Chewing Tobacco Use: No Hx Alcohol Use: No Hx Substance Use: No Hx Substance Use Treatment: No Hx Depression: No Hx Physical Abuse: No Hx Emotional Abuse: No Hx Suspected Abuse: No - Female History Patient : No Family Medical History - Family History Mother Family History: No Known Name: Aries Cavazos Age (years): 53 Living Status: Hx Family Asthma: No Hx Family Congestive Heart Failure: No Hx Family Hypertension: No Hx Family Stroke: No Hx Cardiac Disease: No Hx Family Diabetes: Yes - parents Hx Family Cancer: No Physical Exam - Physical Exam General Appearance: Other - the patient is drowsy. She is disheveled. Eye Exam: bilateral normal Ears, Nose, Throat: hearing grossly normal, normal pharynx Neck: non-tender, supple Respiratory: lungs clear, normal breath sounds, no respiratory distress, no accessory muscle use Cardiovascular/Chest: normal peripheral pulses, no edema, other - egular rate. Peripheral Pulses: radial,right: 2+, radial,left: 2+, dorsalis pedis,right: 2+, dorsalis pedis,left: 2+ Gastrointestinal/Abdominal: non tender, soft Rectal Exam: deferred Back Exam: no vertebral tenderness Extremity: normal range of motion, non-tender, normal inspection, no pedal edema, normal capillary refill Neurologic: laundry agent II-XII nml as tested, alert, oriented x 3 - she is drowsy and easily confused. Skin Exam: normal color Comments: Vital Signs - 24 hr 02/15/19 02/15/19 09:51 11:02 Temperature 96.2 F L Pulse Rate [ 56 L 56 L Left Brachial] Respiratory 20 20 Rate Blood Pressure 107/62 105/59 [Left Arm] O2 Sat by Pulse 96 94 L Oximetry Progress - Progress Progress: 02/15/19 11:34 the patient is a 78-year-old female presenting to the emergency room with what appears to be delirium. She is mildly dehydrated and is receiving a liter of IV fluids. This may be due to her pain medication stacking up on her. I do want to admit her and monitor her overnight. She has had 2 previously similar episodes in the past. Workup including lab work, urinalysis, plain x- ray and head CT are otherwise largely negative for any acute etiology. No obvious nuchal rigidity or meningeal signs. No fever. - Results/Orders Results/Orders: plain acute abdominal series shows no definitive acute pathology. CT scan of the head without contrast showed no evidence of any acute pathology. No hemorrhage or obvious new stroke. Laboratory Results - last 24 hr 02/15/19 02/15/19 02/15/19 09:55 09:55 09:55 WBC 6.3 RBC 3.98 L Hgb 10.5 L Hct 31.9 L MCV 80.1 L MCH 26.4 L MCHC 33.0 RDW 16.1 H Plt Count 205 MPV 8.1 Absolute Neuts (auto) 3.70 Absolute Lymphs (auto) 1.80 Absolute Monos (auto) 0.60 Absolute Eos (auto) 0.20 Absolute Basos (auto) 0.00 Neutrophils % 58.8 Lymphocytes % 28.5 Monocytes % 8.9 Eosinophils % 3.3 Basophils % 0.5 PT 10.5 INR 1.05 PTT (SP) 23.2 Sodium 132 L Potassium 3.9 Chloride 99 L Carbon Dioxide 20 L Anion Gap 16.9 BUN 20 H Creatinine 0.93 BUN/Creatinine Ratio 21.5 H Random Glucose 70 Serum Osmolality 265.6 L Lactic Acid Calcium 9.1 Magnesium 2.3 Total Bilirubin 0.3 AST 17 ALT 12 Alkaline Phosphatase 49 Creatine Kinase 54 CK-MB (CK-2) 1.5 CK-MB (CK-2) % Not Reportable Troponin I < 0.02 B-Natriuretic Peptide 37.7 Serum Total Protein 7.3 Albumin 3.8 Globulin 3.5 Albumin/Globulin Ratio 1.1 Amylase 35 Lipase 23 TSH 3.87 Urine Color Urine Appearance Urine pH Ur Specific [place] Urine Protein Urine Glucose (UA) Urine Ketones Urine Blood Urine Nitrite Urine Bilirubin Urine Urobilinogen Ur Leukocyte Esterase Urine RBC Urine WBC Ur Epithelial Cells Amorphous Sediment Urine Bacteria 02/15/19 02/15/19 09:55 10:00 WBC RBC Hgb Hct MCV MCH MCHC RDW Plt Count MPV Absolute Neuts (auto) Absolute Lymphs (auto) Absolute Monos (auto) Absolute Eos (auto) Absolute Basos (auto) Neutrophils % Lymphocytes % Monocytes % Eosinophils % Basophils % PT INR PTT (SP) Sodium Potassium Chloride Carbon Dioxide Anion Gap BUN Creatinine BUN/Creatinine Ratio Random Glucose Serum Osmolality Lactic Acid 0.6 Calcium Magnesium Total Bilirubin AST ALT Alkaline Phosphatase Creatine Kinase CK-MB (CK-2) CK-MB (CK-2) % Troponin I B-Natriuretic Peptide Serum Total Protein Albumin Globulin Albumin/Globulin Ratio Amylase Lipase TSH Urine Color Yellow Urine Appearance Clear Urine pH 6.5 Ur Specific [place] 1.010 Urine Protein Negative Urine Glucose (UA) Negative Urine Ketones Negative Urine Blood Negative Urine Nitrite Negative Urine Bilirubin Negative Urine Urobilinogen 0.2 Ur Leukocyte Esterase Negative Urine RBC 0 Urine WBC 0 Ur Epithelial Cells 5-10 Amorphous Sediment 1+ Urine Bacteria 0 Departure - Departure Clinical Impression: Delirium Disposition: Admit Patient Departure Forms: ED Discharge - Pt. Copy, Patient Portal Self Enrollment Referrals: Koby Odonnell MD [Primary Care Provider] - 1-2 Weeks Home Medications: Ambulatory Orders Carvedilol [Coreg] 25 mg PO BID 09/02/12 Lisinopril 40 mg PO BID 09/02/12 Omeprazole [Prilosec] 20 mg PO BID 09/02/12 Aspirin [Aspirin EC Low Dose] 81 mg PO DAILY 09/20/16 Insulin Degludec [Tresiba Flextouch] 32 unit SC BEDTIME 06/28/18 Potassium 99 mg PO DAILY 06/28/18 amLODIPine BESYLATE [Norvasc] 10 mg PO DAILY 06/28/18 Hydrocodone-Acetaminophen [Bassett 5-325 mg] 1 tab PO Q6H 01/03/19 Cholecalciferol [Vitamin D3] 400 unit PO DAILY 02/15/19 Meloxicam 15 mg PO DAILY 02/15/19 Ranitidine HCl 300 mg PO DAILY 02/15/19 Decision To Admit - Decistion To Admit Decision to Admit Reason: Medical Nature Decision to Admit Date: 02/15/19 Decision to Admit Time: 11:15
--- NOTE | 2019-02-15 11:57 | HP ---
SUPERVISING PHYSICIAN: Siva Webb MD CHIEF COMPLAINT: Confusion, HISTORY OF PRESENT ILLNESS: Ms. Cavazos is a 78 year-old female patient who was brought to the Emergency Room via EMS secondary to acute delirium. Her family notes that over the last 24 to 48 hours the patient is becoming more confused and not making sense. No focal deficits were noted. She does not have any difficulties with speech or swallowing but is obviously not relaying clear thoughts and not at her baseline level per her family members. She does have a history of previously being admitted for similar symptoms in the past which was due to hyponatremia. She also is on chronic pain management with [place] and is concerned that maybe she is a little bit dehydrated and possibly having some side effects from that. It was noted that before she came to the Emergency Room, she did take her [place]. She denies any actual chest pain or shortness of breath. She does note that she has chronic lower extremity weakness and utilizes a walker at home. On admission to the Floor, the patient's mental status was back to baseline levels according to her family members, therefore history is provided by patient as well as some family members in previous charts. Given her past medical history of diabetes, weakness and previous episodes of acute delirium and confusion, Dr. Webb, Emergency Room physician, requests the patient be placed in observation for close neurological monitoring for at least 24 hours. She was admitted in stable condition. PAST MEDICAL HISTORY: 1. Chronic hypertension. 2. Insulin-dependent diabetes mellitus. 3. Chronic obstructive pulmonary disease in a previous smoker. 4. History of left hip fracture. 5. Chronic opioid use due to chronic back pain. PAST SURGICAL HISTORY: 1. Left hip fracture repair. 2. Hysterectomy. CURRENT MEDICATIONS: 1. Norvasc 10 mg daily. 2. Rentamine 300 mg daily 3. Potassium 99 mg daily. 4. Prilosec 20 mg b.i.d. 5. Meloxicam 15 mg daily. 6. Lisinopril 40 mg b.i.d. 7. Tresiba 32 units subcu at bedtime. 8. [place] 5/325, 1 every 6 hours scheduled. 9. Vitamin D3 400 units daily. 10. Coreg 25 mg b.i.d. 11. Aspirin 81 mg daily. ALLERGIES: CODEINE, SULFA ANTIBIOTICS, PREDNISOLONE, HYDROCORTISONE. FAMILY HISTORY: Noncontributory. She has a positive history of diabetes and cancer in family members. SOCIAL HISTORY: Patient was a previous smoker but quit in the last several months. Denies alcohol or illicit drug use. She lives in [place] by herself and is checked on by family members on a daily basis.:She utilizes a walker but is fairly independent. REVIEW OF SYSTEMS: CONSTITUTIONAL: Denies fever, chills, general malaise, unintentional weight loss.. HEENT: Negative for sore throats, earaches, nasal congestion, vision changes. RESPIRATORY: Denies shortness of breath, wheezing or coughing. CARDIOVASCULAR: Negative for chest pain, palpitations or syncopal episodes. GASTROINTESTINAL: No reported abdominal pain,.nausea, vomiting, diarrhea, constipation. GENITOURINARY: Does have increased frequency but denies dysuria, hematuria. MUSCULOSKELETAL: As noted in the history of present illness, chronic pain management for generalized arthritis. SKIN: Denies changes, lesions, rashes or moles. NEUROLOGIC: As noted in history of present illness. PHYSICAL EXAMINATION: VITAL SIGNS: Temperature on admission 96.2, pulse 56, blood pressure 107/62, respirations 20, oxygen saturation 96% on room air. GENERAL: The patient on examination to medical/surgical floor shows her to be in no acute distress. conversing with family members. She does feel a little bit dehydrated but well-nourished. HEENT: Tympanic membranes clear bilaterally. Oropharynx pink with dry mucous membranes. NECK: Supple, non-tender, full range of motion. No jugular venous distention. CHEST: Lungs clear to auscultation bilaterally without rhonchi, rales, or wheezes. CARDIOVASCULAR: Regular rate and rhythm without appreciable murmurs, gallops, or rubs. ABDOMEN: Soft, non-tender, positive bowel sounds. EXTREMITIES: No cords, clubbing, or edema. BACK: No vertebral tenderness, no CVA tenderness. NEUROLOGIC: Cranial nerves II through XII grossly intact as tested. She is alert and oriented x 3. Facial features were symmetrical. Extraocular movements within normal limits. There was no notable nystagmus. SKIN: Warm, pink and dry. LABORATORY: White count 6,300, hemoglobin 10.5, hematocrit 31.9 with microcytic hypochromic presentation, RBC indices platelet count 205,000, differential showed to be without a left shift. Coagulation studies showed normal PT/PTT. Chemistries showed a low sodium at 136, potassium normal at 3.9, carbon dioxide a little low at 20 with normal anion gap, BUN 0.93. Blood sugar on admission this morning was 70, lactic acid 0.6. Liver functions were all within normal limits. TSH normal. Urinalysis within normal limits. RADIOLOGY: CT of the head without contrast per radiology interpretation showed mild atrophy and microvascular white matter changes without changes of acute intracranial abnormality. Abdominal x-ray per radiology interpretation showed no acute findings in the chest, abdomen or pelvis. ASSESSMENT: 1. Hyponatremia with symptomatic altered level of consciousness, possibly exacerbated by pain management to include V[place]ar. 2. Altered level of consciousness with acute delirium, probably secondary to mild hyponatremia with some possible dementia contributing and exacerbated by pain management with Vassar and dehydration. 3. Dehydration. 4. Mild hypoglycemia exacerbated by hyponatremia. 5. Microcytic/hyperchromic anemia. 6. Diabetes mellitus type 2, insulin dependent, on Tresiba with a blood sugar of 70 on admission. 7. Chronic obstructive pulmonary disease without any signs of exacerbation in a chronic smoker. 8. History of chronic smoking, nicotine addiction, recently quit. 9. Chronic hypertension. PLAN: The patient is going to be placed in observation to closely monitor her neurological status. On admission to the medical/surgical floor, the patient was back to baseline levels. It was noted that on review of her chart that her blood sugar was 70 and she was on Tresiba but she notes that her blood sugar usually runs in the high 180s to 200 and this morning she was 70 to 80s which could be contributing to some of her confusion. Will go ahead and resume her home medications once those have been updated and verified. Given her dehydration and hyponatremia, we will go ahead and put her on some normal saline to help correct that which could be contributing to acute delirium. She will be on every 4 hours neurological checks. We will have her on insulin sliding scale per protocol. Will have her on DVT prophylaxis per protocol with Lovenox. I would anticipate her length of stay to be 1 to 2 days, probably discharge tomorrow if no recurrence of symptoms. Until the, we will continue to follow as needed. . #[id number] [facility]
[2019-02-15] MEDS ORDERED: SODIUM CHLORIDE 0.9% (FLUSH) 10 ML SYG IV PRN (13:28)
[2019-02-15] MEDS ORDERED: ALUM & MAG HYDROX-SIMETHICONE 30 ML UD PO PRN (13:28)
[2019-02-15] MEDS ORDERED: MAGNESIUM HYDROXIDE 30 ML UD PO PRN (13:28)
[2019-02-15] MEDS ORDERED: ONDANSETRON INJ 4 MG/2 ML VIAL IV PRN (13:28)
[2019-02-15] MEDS ORDERED: ACETAMINOPHEN 325 MG TAB PO PRN (13:28)
[2019-02-15] MEDS ORDERED: IV SET AND CAP CHANGE INJ INJ SCH (13:30)
[2019-02-15] MEDS: SODIUM CHLORIDE 0.9% 1000ML 1,000 ML IVS PRN (15:44)
[2019-02-15] MEDS ORDERED: DEXTROSE 50% 25 GM/50 ML SYG IV PRN (17:04)
[2019-02-15] MEDS ORDERED: GLUCAGON INJ 1 MG VIAL SUBCU PRN (17:04)
[2019-02-15] MEDS: INSULIN LISPRO 100 UNITS/ML PEN SUBCU SCH ×2 (17:27→21:39)
[2019-02-15] MEDS ORDERED: LISINOPRIL 10 MG TAB ONE (19:27)
[2019-02-15] MEDS ORDERED: CARVEDILOL 12.5 MG TAB ONE (19:27)
[2019-02-15] MEDS ORDERED: NON-FORMULARY MEDICATION 1 EA MIS (Carvedilol [Coreg] 25 MG) PO SCH (21:00)
[2019-02-15] MEDS ORDERED: INSULIN DEGLUDEC 32 UNIT SC SCH (21:00)
[2019-02-15] MEDS ORDERED: NON-FORMULARY MEDICATION 1 EA MIS (Lisinopril [Lisinopril] 40 MG) PO SCH (21:00)
[2019-02-15] MEDS ORDERED: ENOXAPARIN SODIUM 40 MG/0.4 ML SYG SUBCU SCH (21:00)
[2019-02-15] MEDS: OMEPRAZOLE CAP 20 MG CAP PO SCH (21:40)
[2019-02-16] MEDS: SODIUM CHLORIDE 0.9% 1000ML 1,000 ML IVS PRN (00:31)
[2019-02-16] MEDS: INSULIN LISPRO 100 UNITS/ML PEN SUBCU SCH ×2 (07:45→12:07)
[2019-02-16] MEDS ORDERED: LISINOPRIL 10 MG TAB PO SCH (09:00)
[2019-02-16] MEDS ORDERED: ASPIRIN (ENTERIC COATED) 81 MG TAB PO SCH (09:00)
[2019-02-16] MEDS ORDERED: CARVEDILOL 12.5 MG TAB PO SCH (09:00)
[2019-02-16] MEDS ORDERED: amLODIPine BESYLATE 5 MG TAB PO SCH (09:00)
[2019-02-16] MEDS ORDERED: NON-FORMULARY MEDICATION 1 EA MIS (Potassium [Potassium] 99 MG) PO SCH (09:00)
[2019-02-16] MEDS ORDERED: MELOXICAM 7.5 MG TAB PO SCH (09:00)
[2019-02-16] MEDS ORDERED: OMEPRAZOLE CAP 20 MG CAP PO SCH (09:05)
[2019-02-16] MEDS: OMEPRAZOLE CAP 20 MG CAP PO SCH (11:04)
[2019-02-16 11:43] VITALS: BP 137/69; TEMP 97.1; O2SAT 92
--- NOTE | 2019-02-16 13:44 | DS ---
SUPERVISING PHYSICIAN: Anastacio Sweet MD ADMISSION DIAGNOSIS: 1. Hyponatremia with symptomatic altered level of consciousness, possibly exacerbated by pain management to include [place]. 2. Altered level of consciousness with acute delirium, probably secondary to mild hyponatremia with some possible dementia contributing and exacerbated by pain management with [place] and dehydration. 3. Mild hypoglycemia exacerbated by hyponatremia. 4. Anemia. 5. Diabetes mellitus, type 2. 6. Chronic obstructive pulmonary disease. 7. Chronic nicotine dependency. 8. Hypertension. DISCHARGE DIAGNOSIS: 1. Altered mental status, resolved. 2. Dehydration, improved. 3. Hyponatremia, improving. 4. Hypoglycemia, resolved. 5. Diabetes mellitus, type 2. 6. Chronic obstructive pulmonary disease with no acute exacerbation. 7. Anemia, stable. 8. Hypertension. HISTORY OF PRESENT ILLNESS: This is a 78-year-old female who was brought to the Emergency Room secondary to acute delirium. Her family noted that one to two days prior to admission, she was more confused and not making much sense. No focal deficits were noted. She was seen in the Emergency Room. Apparently she already has lower extremity weakness and uses a walker at home. She was placed on IV fluids for hydration. CT scan of the brain did not show any acute findings. Throughout her 24 hours here, her mentation normalized and she was back to her baseline. It was thought that potentially the combination of dehydration, hyponatremia and pain medications caused her altered sensorium. Due to her improved status, she will be discharged today in stable condition. I resumed her home medications. She will need a followup with her primary care physician in one to two weeks. She is to ambulate with a walker and continue her current medications. She will need to be cautious with her hydration status as well as pain medications. At her age, the accumulation of the medications in her system could contribute to some altered mental status at times. This was discussed with her and the family. #[id number] [facility]
== END 2019-02-16 12:40 | disposition home or self-care (01) ==
LOC: ER 09:29 → MS 11:56
PROVIDERS: ADMIT Nurse Practitioner Family; ATTEND Nurse Practitioner
DX: E87.1 Hypo-osmolality and hyponatremia (principal); E86.0 Dehydration; E11.649 Type 2 diabetes mellitus with hypoglycemia without coma; F05 Delirium due to known physiological condition; J44.9 Chronic obstructive pulmonary disease, unspecified; D64.9 Anemia, unspecified; I10 Essential (primary) hypertension; G89.29 Other chronic pain; K21.9 Gastro-esophageal reflux disease without esophagitis; Z79.891 Long term (current) use of opiate analgesic; Z79.4 Long term (current) use of insulin; Z79.1 Long term (current) use of non-steroidal anti-inflammatories (NSAID); Z79.82 Long term (current) use of aspirin; Z79.899 Other long term (current) drug therapy; Z88.2 Allergy status to sulfonamides; Z88.6 Allergy status to analgesic agent; Z88.8 Allergy status to other drugs, medicaments and biological substances; Z87.891 Personal history of nicotine dependence; Z90.710 Acquired absence of both cervix and uterus; Z83.3 Family history of diabetes mellitus; Z80.9 Family history of malignant neoplasm, unspecified
CPT/HCPCS: 96360; 96372 ×2; J7030 ×3; J1650; J1815; 80048; 82553; 80053; 82948 ×4; 36415 ×2; 82150; 81001; 85025; 82550; 83690; 83735; 85730; 85610; 84443; 84484; 83880; 36416 ×2; 83605; 74019; 70450; 94760 ×3; 99285; 87502

== ENCOUNTER 2019-05-03 13:08 | Emergency (ER) | payer MEDICARE ==
--- NOTE | 2019-05-03 14:16 | RAD ---
EXAM DESCRIPTION: XR Knee, Left, 2 Views CLINICAL HISTORY: 78 years Female, knee pain COMPARISON: September 10, 2017. FINDINGS: There is no evidence of acute fracture or dislocation or destructive bony lesion. Minimal spurring at the medial tibial spine. There may be some bony demineralization. Minimal irregularity is again noted at the posterior patellar margin, consistent with small osteochondral lesion or chondromalacia. Joint spaces appear maintained. There is again noted slight soft tissue fullness in the suprapatellar region, consistent with a small joint effusion, along with diffuse vascular calcifications. Overall, no significant interval change is seen. IMPRESSION: Small joint effusion and other minor chronic bony changes. Electronically signed by: Antwan Trivedi MD 05/03/2019 2:14 PM [facility] [[email or web address]]
--- NOTE | 2019-05-03 14:46 | ED.PDOC ---
History of Present Illness - General Chief Complaint: General Stated Complaint: L knee pain Time Seen by Provider: 05/03/19 13:37 - History of Present Illness Allergies/Adverse Reactions: Allergies Codeine Allergy (Verified 05/03/19 13:29) Sulfa Antibiotics Allergy (Verified 05/03/19 13:29) Hydrocort Acet/gel/pect/sodium carb Adverse Reaction (Intermediate, Verified 05/03/19 13:29) Prednisolone Adverse Reaction (Intermediate, Verified 05/03/19 13:29) Hydrocortisone Adverse Reaction (Verified 05/03/19 13:29) Morphine Adverse Reaction (Verified 05/03/19 13:29) Other Makes patient "crazy" Home Medications: Ambulatory Orders Carvedilol [Coreg] 25 mg PO BID 09/02/12 Lisinopril 40 mg PO BID 09/02/12 Omeprazole [Prilosec] 20 mg PO BID 09/02/12 Aspirin [Aspirin EC Low Dose] 81 mg PO DAILY 09/20/16 Insulin Degludec [Tresiba Flextouch] 32 unit SC BEDTIME 06/28/18 Potassium Gluconate [Potassium] 99 mg PO DAILY 06/28/18 amLODIPine BESYLATE [Norvasc] 10 mg PO DAILY 06/28/18 Hydrocodone-Acetaminophen [[place] 5-325 mg] 1 tab PO Q6H 01/03/19 Cholecalciferol [Vitamin D3] 400 unit PO DAILY 02/15/19 Meloxicam 15 mg PO DAILY 02/15/19 Ranitidine HCl 300 mg PO DAILY 02/15/19 Past Medical History (General) - Patient Medical History Hx Seizures: No Hx Stroke: No Hx Dementia: No Hx Asthma: No Hx of COPD: Yes Hx Cardiac Disorders: No Hx Congestive Heart Failure: No Hx Pacemaker: No Hx Hypertension: Yes Hx Thyroid Disease: No Hx Diabetes: Yes Hx Gastroesophageal Reflux: Yes Hx Renal Disease: No Hx Cancer: No Hx of HIV: No Hx Hepatitis C: No Hx MRSA: No Surgical History: cholecystectomy, tonsillectomy, Hysterectomy, other - Vaccination History Hx Tetanus, Diphtheria Vaccination: No Hx Influenza Vaccination: Yes Hx Pneumococcal Vaccination: Yes - Social History Hx Tobacco Use: Yes Hx Chewing Tobacco Use: No Hx Alcohol Use: No Hx Substance Use: No Hx Substance Use Treatment: No Hx Depression: No Hx Physical Abuse: No Hx Emotional Abuse: No Hx Suspected Abuse: No - Female History Patient : No Family Medical History - Family History Mother Family History: No Known Name: Ladi Alarcon Age (years): 89 Living Status: Hx Family Asthma: No Hx Family Congestive Heart Failure: No Hx Family Hypertension: No Hx Family Stroke: No Hx Cardiac Disease: No Hx Family Diabetes: Yes - parents Hx Family Cancer: No Hx Family;Other: Patient or her daughter do not know why family member Departure - Departure Clinical Impression: Knee pain, left Time of Disposition: 14:45 Disposition: Discharge to Home or Self Care Condition: Good Departure Forms: ED Discharge - Pt. Copy, Patient Portal Self Enrollment Diet: resume usual diet Activity: increase activity as tolerated Referrals: Koby Odonnell MD [Primary Care Provider] - 1-2 Weeks Home Medications: Ambulatory Orders Carvedilol [Coreg] 25 mg PO BID 09/02/12 Lisinopril 40 mg PO BID 09/02/12 Omeprazole [Prilosec] 20 mg PO BID 09/02/12 Aspirin [Aspirin EC Low Dose] 81 mg PO DAILY 09/20/16 Insulin Degludec [Tresiba Flextouch] 32 unit SC BEDTIME 06/28/18 Potassium Gluconate [Potassium] 99 mg PO DAILY 06/28/18 amLODIPine BESYLATE [Norvasc] 10 mg PO DAILY 06/28/18 Hydrocodone-Acetaminophen [[place] 5-325 mg] 1 tab PO Q6H 01/03/19 Cholecalciferol [Vitamin D3] 400 unit PO DAILY 02/15/19 Meloxicam 15 mg PO DAILY 02/15/19 Ranitidine HCl 300 mg PO DAILY 02/15/19 Additional Instructions: Follow up PCP in 1-2 days Refer to ortho
[2019-05-03] MEDS ORDERED: KETOROLAC TROMETHAMINE INJ 30 MG/ML VIAL IM ONE (14:53)
[2019-05-03 16:27] VITALS: BP 147/73; TEMP 97; O2SAT 93
== END 2019-05-03 15:10 | disposition home or self-care (01) ==
LOC: ER 13:08
DX: M25.562 Pain in left knee (principal); J44.9 Chronic obstructive pulmonary disease, unspecified; I10 Essential (primary) hypertension; E11.9 Type 2 diabetes mellitus without complications; K21.9 Gastro-esophageal reflux disease without esophagitis; Z79.4 Long term (current) use of insulin; Z79.82 Long term (current) use of aspirin; Z79.899 Other long term (current) drug therapy; Z87.891 Personal history of nicotine dependence; Z88.5 Allergy status to narcotic agent; Z88.2 Allergy status to sulfonamides; Z88.8 Allergy status to other drugs, medicaments and biological substances
CPT/HCPCS: 73560; J1885

== ENCOUNTER → 2019-12-10 | Outpatient (CLI) | payer MEDICARE | LOC: HHH 17:24 | PROVIDERS: ATTEND General Practice | DX: I50.9 Heart failure, unspecified (principal); Z79.4 Long term (current) use of insulin ==

== ENCOUNTER 2019-12-13 15:00 | Emergency (ER) | payer MEDICARE ==
[2019-12-13] MEDS ORDERED: fentaNYL CITRATE INJ 50 MCG/ML AMP IV ONE (16:46)
--- NOTE | 2019-12-13 16:49 | CT ---
EXAM: Cervical Spine CLINICAL INDICATION: Neck pain after falling COMPARISON: There is no previous study for comparison. TECHNIQUE: CT scan of the cervical spine was done using contiguous axial 3mm sections through the cervical spine with sagittal and coronal reconstructions. This exam was performed according to our departmental dose-optimization program, which includes automated exposure control, adjustment of the mA and/or kV according to patient size and/or use of iterative reconstruction technique. Findings: There is no fracture or subluxation. The prevertebral soft tissues are normal. The bilateral facet joint alignment is normal. The osseous structures appear intact and unremarkable except for moderate degenerative disc disease at the C5-C6 and C6-C7 levels. IMPRESSION: No evidence of acute traumatic injury. Electronically signed by: Philipp Mccarthy MD 12/13/2019 4:48 PM CDT
--- NOTE | 2019-12-13 16:49 | CT ---
EXAM: Abdomen/Pelvis w/Contrast CLINICAL INDICATION: Patient fell, abdomen pain COMPARISON: 02/18/2017 TECHNIQUE: The CT scan was done using contiguous axial 5 mm postcontrast sections through the abdomen and pelvis including IV contrast. This exam was performed according to our departmental dose-optimization program, which includes automated exposure control, adjustment of the mA and/or kV according to patient size and/or use of iterative reconstruction technique. FINDINGS: The visualized lung bases contain mild subsegmental atelectasis but are otherwise clear. The gallbladder is surgically absent. The liver, kidneys, spleen, and pancreas are unremarkable. There is a left adrenal nodule consistent with an adenoma which appears unchanged compared to the previous study measuring 10.6 x 10.4 mm. The right adrenal gland is unremarkable. There is an abdominal aortic aneurysm measuring a maximum of 3.1 cm AP, larger than the previous study when it measured 2.8 cm. There are no dilated loops of small bowel. There is no free air, free fluid, or abscess. The uterus is surgically absent. The visualized osseous structures reveal a chronic moderate compression fracture of L5 which appears the same as the prior CT scan. No acute fractures are demonstrated. IMPRESSION: 1. No evidence of an acute intra-abdominal process or acute traumatic injury. 2. 3.1 cm abdominal aortic aneurysm for which three-year follow-up CT evaluation is recommended. Electronically signed by: Philipp Mccarthy MD 12/13/2019 4:47 PM CDT
--- NOTE | 2019-12-13 16:53 | CT ---
Exam type: CT thoracic and lumbar spine without contrast. Clinical history: Low back pain. COMPARISON: None. TECHNIQUE: The CT scan was done using contiguous axial 2.5 mm sections through the thoracic and lumbar spine with multiplanar reconstructions. This exam was performed according to our departmental dose-optimization program, which includes automated exposure control, adjustment of the mA and/or kV according to patient size and/or use of iterative reconstruction technique. Results: There is a moderate chronic compression fracture of L5 which appears as a mesenteric old abdomen pelvis CT from 02/18/2017. No other fracture, compression deformity, or subluxation is identified. There is mild rightward scoliotic curvature of the lumbar spine. Moderate multilevel degenerative disc disease and bilateral facet joint arthropathy is noted throughout the thoracic and lumbar spine. No significant central canal stenosis is identified in the thoracic spine. At L1-L2 the disc appears normal. At L2-L3 there is a moderate diffuse disc bulge with no significant central stenosis and mild bilateral foraminal narrowing. At L3-L4 there is a moderate diffuse disc bulge, bilateral facet arthropathy, and mild bilateral foraminal narrowing with no central stenosis. At L4-L5 there is a moderate diffuse disc bulge, ligamentum flavum hypertrophy and facet arthropathy, moderate left foraminal narrowing, moderate right foraminal narrowing and no central stenosis At L5-S1 the central canal and neural foramina are patent. Again noted is a 3.1 cm abdominal aortic aneurysm fully described in the abdomen and pelvis CT report. IMPRESSION: 1. Chronic moderate compression fracture of L5. No acute fracture. 2. Multilevel degenerative changes. Electronically signed by: Philipp Mccarthy MD 12/13/2019 4:51 PM CDT
--- NOTE | 2019-12-13 17:16 | ED.PDOC ---
History of Present Illness - General Chief Complaint: Trauma Stated Complaint: fall yesterday, abdominal and back pain Time Seen by Provider: 12/13/19 15:17 Source: patient, family Additional Information: The patient is a 79 year old who presents to the Emergency Department complaining of abdominal pain and back pain after a fall. She ambulates with a walker and has poor gait at baseline. The patient states that yesterday she fell but she is unsure of exactly how she fell. She landed on her bottom, she did not hit her head or get knocked unconscious. Her daughter was able to help her to her feet. She complains of low back pain, neck pain and upper abdominal pain. No weakness, numbness or tingling. No nausea or vomiting. No other complaints at this time. - History of Present Illness Allergies/Adverse Reactions: Allergies Codeine Allergy (Verified 05/03/19 13:29) Sulfa Antibiotics Allergy (Verified 05/03/19 13:29) Hydrocort Acet/gel/pect/sodium carb Adverse Reaction (Intermediate, Verified 05/03/19 13:29) Prednisolone Adverse Reaction (Intermediate, Verified 05/03/19 13:29) Hydrocortisone Adverse Reaction (Verified 05/03/19 13:29) Morphine Adverse Reaction (Verified 05/03/19 13:29) Other Makes patient "crazy" Home Medications: Ambulatory Orders Carvedilol [Coreg] 25 mg PO BID 09/02/12 Lisinopril 40 mg PO BID 09/02/12 Omeprazole [Prilosec] 20 mg PO BID 09/02/12 Aspirin [Aspirin EC Low Dose] 81 mg PO DAILY 09/20/16 Insulin Degludec [Tresiba Flextouch] 32 unit SC BEDTIME 06/28/18 Potassium Gluconate [Potassium] 99 mg PO DAILY 06/28/18 amLODIPine BESYLATE [Norvasc] 10 mg PO DAILY 06/28/18 Hydrocodone-Acetaminophen [[place] 5-325 mg] 1 tab PO Q6H 01/03/19 Cholecalciferol [Vitamin D3] 400 unit PO DAILY 02/15/19 Meloxicam 15 mg PO DAILY 02/15/19 Ranitidine HCl 300 mg PO DAILY 02/15/19 Review of Systems - Review of Systems Constitutional: States: no symptoms reported EENTM: States: no symptoms reported Respiratory: Denies: cough, short of breath Cardiology: Denies: chest pain, palpitations Gastrointestinal/Abdominal: States: abdominal pain. Denies: diarrhea, nausea, vomiting Genitourinary: Denies: dysuria, frequency, hematuria Musculoskeletal: States: back pain, muscle pain, muscle stiffness, neck pain Neurological: Denies: headache, numbness, paresthesia, tingling, weakness Endocrine: States: no symptoms reported Hematologic/Lymphatic: States: no symptoms reported All other Systems: Reviewed and Negative Past Medical History (General) - Patient Medical History Hx Seizures: No Hx Stroke: No Hx Dementia: No Hx Asthma: No Hx of COPD: Yes Hx Cardiac Disorders: No Hx Congestive Heart Failure: No Hx Pacemaker: No Hx Hypertension: Yes Hx Thyroid Disease: No Hx Diabetes: Yes Hx Gastroesophageal Reflux: Yes Hx Renal Disease: No Hx Cancer: No Hx of HIV: No Hx Hepatitis C: No Hx MRSA: No - Vaccination History Hx Tetanus, Diphtheria Vaccination: No Hx Influenza Vaccination: Yes Hx Pneumococcal Vaccination: Yes - Social History Hx Tobacco Use: Yes Hx Chewing Tobacco Use: No Hx Alcohol Use: No Hx Substance Use: No Hx Substance Use Treatment: No Hx Depression: No Hx Physical Abuse: No Hx Emotional Abuse: No Hx Suspected Abuse: No - Female History Patient : No Family Medical History - Family History Mother Family History: No Known Name: Ladi Alarcon Age (years): 89 Living Status: Hx Family Asthma: No Hx Family Congestive Heart Failure: No Hx Family Hypertension: No Hx Family Stroke: No Hx Cardiac Disease: No Hx Family Diabetes: Yes - parents Hx Family Cancer: No Hx Family;Other: Patient or her daughter do not know why family member Physical Exam - Physical Exam General Appearance: Anxious, No apparent distress Eye Exam: bilateral normal Ears, Nose, Throat: hearing grossly normal, normal ENT inspection, normal pharynx Neck: full range of motion, tender lateral Respiratory: chest non-tender, lungs clear, normal breath sounds, no respiratory distress, no accessory muscle use Cardiovascular/Chest: regular rate, rhythm, no murmur Gastrointestinal/Abdominal: soft, tenderness - mild, diffuse Back Exam: normal inspection, vertebral tenderness - C/T/L spine, mild paraspinous tenderness, no stepoff or deformity, no bony point tenderness Extremity: normal range of motion, non-tender, normal inspection Neurologic: no motor/sensory deficits, alert, oriented x 3 Skin Exam: normal color, warm/dry Progress - Progress Progress: 12/13/19 17:18 12/13/19 15:18 Hold Metformin x 48Hrs [id number] Laboratory Results - last 24 hr 12/13/19 12/13/19 15:28 15:28 WBC 5.2 RBC 4.22 Hgb 10.7 L Hct 32.1 L MCV 76.0 L MCH 25.4 L MCHC 33.4 RDW 17.2 H Plt Count 195 MPV 8.1 Absolute Neuts (auto) 3.30 Absolute Lymphs (auto) 1.40 Absolute Monos (auto) 0.30 Absolute Eos (auto) 0.10 Absolute Basos (auto) 0.10 Neutrophils % 63.8 Lymphocytes % 26.1 Monocytes % 6.5 Eosinophils % 2.6 Basophils % 1.0 Sodium 127 L Potassium 4.1 Chloride 95 L Carbon Dioxide 22 Anion Gap 14.1 BUN 17 Creatinine 0.93 BUN/Creatinine Ratio 18.3 Random Glucose 370 H Serum Osmolality 271.8 L Calcium 8.9 12/13/19 17:43 Patient reassessed, workup as above. She has mild asymptomatic hyponatremia. On imaging there is no acute intra-abdominal process. There is chronic T5 compression fracture without acute traumatic injury. No neurologic symptoms. her pain is controlled and her blood pressure has improved. She has hydrocodone at home for pain. Reviewed labs and imaging. Will need to follow up with her PCP. Continue home pain medications and return to ED as needed. Home care instructions and return indications reviewed. Departure - Departure Clinical Impression: Fall Qualifiers: Encounter type: initial encounter Qualified Code(s): W19.XXXA - Unspecified fall, initial encounter Lumbar strain Qualifiers: Encounter type: initial encounter Qualified Code(s): S39.012A - Strain of muscle, fascia and tendon of lower back, initial encounter Time of Disposition: 17:46 Disposition: Discharge to Home or Self Care Condition: Fair Departure Forms: ED Discharge - Pt. Copy, Patient Portal Self Enrollment Instructions: DI for Trauma, Low Back Pain (DC), Acute Abdomen (Belly Pain), Adult (DC) Diet: resume usual diet Activity: ambulate only with walker Referrals: Koby Odonnell MD [Primary Care Provider] - 1-2 Weeks Home Medications: Ambulatory Orders Carvedilol [Coreg] 25 mg PO BID 09/02/12 Lisinopril 40 mg PO BID 09/02/12 Omeprazole [Prilosec] 20 mg PO BID 09/02/12 Aspirin [Aspirin EC Low Dose] 81 mg PO DAILY 09/20/16 Insulin Degludec [Tresiba Flextouch] 32 unit SC BEDTIME 06/28/18 Potassium Gluconate [Potassium] 99 mg PO DAILY 06/28/18 amLODIPine BESYLATE [Norvasc] 10 mg PO DAILY 06/28/18 Hydrocodone-Acetaminophen [[place] 5-325 mg] 1 tab PO Q6H 01/03/19 Cholecalciferol [Vitamin D3] 400 unit PO DAILY 02/15/19 Meloxicam 15 mg PO DAILY 02/15/19 Ranitidine HCl 300 mg PO DAILY 02/15/19 Comments: Jaycob Whiteside MD Emergency medicine Physician Number [id number]
[2019-12-13 18:48] VITALS: BP 215/75; TEMP 98; O2SAT 96
== END 2019-12-13 18:25 | disposition home or self-care (01) ==
LOC: ER 15:00
DX: S39.012A Strain of muscle, fascia and tendon of lower back, initial encounter (principal); R10.10 Upper abdominal pain, unspecified; M54.2 Cervicalgia; E87.1 Hypo-osmolality and hyponatremia; M84.48XA Pathological fracture, other site, initial encounter for fracture; E11.9 Type 2 diabetes mellitus without complications; K21.9 Gastro-esophageal reflux disease without esophagitis; J44.9 Chronic obstructive pulmonary disease, unspecified; Z87.891 Personal history of nicotine dependence; Z79.899 Other long term (current) drug therapy; Z79.82 Long term (current) use of aspirin; Z79.4 Long term (current) use of insulin; Z88.5 Allergy status to narcotic agent; Z88.2 Allergy status to sulfonamides; Z88.8 Allergy status to other drugs, medicaments and biological substances; W19.XXXA Unspecified fall, initial encounter; Y92.9 Unspecified place or not applicable
CPT/HCPCS: 36415; 72125; 72128; 72131; 74177; 80048; 85025; J3010

== ENCOUNTER 2020-04-27 16:26 | Inpatient (IN) | payer MEDICARE ==
--- NOTE | 2020-04-27 17:34 | ED.PDOC ---
History of Present Illness - General Chief Complaint: General Stated Complaint: +COVID,s/p fall Time Seen by Provider: 04/27/20 17:16 Additional Information: Patient is a 79-year-old female transferred from [facility] via EMS with chief complaint of weakness and Covid. Patient lives at home and was found down on the floor by her sitters this morning. It is unclear how long she was on the ground but estimates are between 1 and 3 hours. Patient was complaining of neck pain and had a full work-up at the transferring hospital to include CT head, CT C-spine, and plain pelvis films which were negative for acute trauma. Review of transferring records reveals that patient's family indicated that patient has been confused for the past day or so and this happens when her sodium gets low. Patient's labs were essentially unremarkable but did show a sodium of 129. Patient was set to be admitted to [facility] for rehydration but her Covid test came back positive and apparently they do not admit Covid patients there so she was transferred here for admission. Patient complains of generalized weakness and myalgia but specifically denies shortness of breath, chest pain, nausea, vomiting or fever. Patient is a poor historian and history is otherwise unknown. - History of Present Illness Allergies/Adverse Reactions: Allergies Codeine Allergy (Verified 05/03/19 13:29) Sulfa Antibiotics Allergy (Verified 05/03/19 13:29) Hydrocort Acet/gel/pect/sodium carb Adverse Reaction (Intermediate, Verified 05/03/19 13:29) Prednisolone Adverse Reaction (Intermediate, Verified 05/03/19 13:29) Hydrocortisone Adverse Reaction (Verified 05/03/19 13:29) Morphine Adverse Reaction (Verified 05/03/19 13:29) Other Makes patient "crazy" Home Medications: Ambulatory Orders Carvedilol [Coreg] 25 mg PO BID 09/02/12 Lisinopril 40 mg PO BID 09/02/12 Omeprazole [Prilosec] 20 mg PO BID 09/02/12 Aspirin [Aspirin EC Low Dose] 81 mg PO DAILY 09/20/16 Insulin Degludec [Tresiba Flextouch] 32 unit SC BEDTIME 06/28/18 Potassium Gluconate [Potassium] 99 mg PO DAILY 06/28/18 amLODIPine BESYLATE [Norvasc] 10 mg PO DAILY 06/28/18 Hydrocodone-Acetaminophen [[place] 5-325 mg] 1 tab PO Q6H 01/03/19 Cholecalciferol [Vitamin D3] 400 unit PO DAILY 02/15/19 Meloxicam 15 mg PO DAILY 02/15/19 Ranitidine HCl 300 mg PO DAILY 02/15/19 Review of Systems - Review of Systems Constitutional: States: malaise, weakness. Denies: fever Respiratory: States: no symptoms reported. Denies: cough, short of breath Cardiology: States: no symptoms reported. Denies: chest pain, palpitations Gastrointestinal/Abdominal: States: no symptoms reported. Denies: abdominal pain Genitourinary: States: no symptoms reported. Denies: dysuria Musculoskeletal: States: muscle pain All other Systems: Reviewed and Negative Past Medical History (General) - Patient Medical History Hx Seizures: No Hx Stroke: No Hx Dementia: No Hx Asthma: No Hx of COPD: Yes Hx Cardiac Disorders: No Hx Congestive Heart Failure: No Hx Pacemaker: No Hx Hypertension: Yes Hx Thyroid Disease: No Hx Diabetes: Yes Hx Gastroesophageal Reflux: Yes Hx Renal Disease: No Hx Cancer: No Hx of HIV: No Hx Hepatitis C: No Hx MRSA: No Surgical History: noncontributory - Vaccination History Hx Tetanus, Diphtheria Vaccination: No Hx Influenza Vaccination: Yes Hx Pneumococcal Vaccination: Yes - Social History Hx Tobacco Use: Yes Hx Chewing Tobacco Use: No Hx Alcohol Use: No Hx Substance Use: No Hx Substance Use Treatment: No Hx Depression: No Hx Physical Abuse: No Hx Emotional Abuse: No Hx Suspected Abuse: No - Female History Patient : No Family Medical History - Family History Mother Family History: No Known Name: Ladi Alarcon Age (years): 89 Living Status: Hx Family Asthma: No Hx Family Congestive Heart Failure: No Hx Family Hypertension: No Hx Family Stroke: No Hx Cardiac Disease: No Hx Family Diabetes: Yes - parents Hx Family Cancer: No Hx Family;Other: Patient or her daughter do not know why family member Physical Exam - Physical Exam General Appearance: Frail, Ill Appearing, Other - Generally weak Ears, Nose, Throat: other - Mucous membranes dry Neck: supple, normal inspection, other - Negative cervical vertebral tenderness to palpation Respiratory: chest non-tender, lungs clear, normal breath sounds, no respiratory distress, no accessory muscle use Cardiovascular/Chest: normal peripheral pulses, regular rate, rhythm, no edema, no gallop, no JVD, no murmur Peripheral Pulses: radial,right: 2+, radial,left: 2+ Gastrointestinal/Abdominal: normal bowel sounds, non tender, soft, no organomegaly Back Exam: no CVA tenderness Extremity: normal inspection, no pedal edema Neurologic: equalizer operator II-XII nml as tested, no motor/sensory deficits, other - Oriented to person and place only, not to time. Patient answers simple questions but has confused mentation. She follows simple commands. Skin Exam: normal color, warm/dry Progress - Progress Progress: 04/27/20 17:40 Patient transferred from [facility] for admission for Covid, hyponatremia and generalized weakness with altered mental status. Patient had a complete work-up done prior to transfer and lab work is not repeated here. Patient's sodium is [address] on a normal saline drip. Patient is Covid positive with a slightly elevated D-dimer I will give Lovenox empirically. Patient is not hypoxic and her chest x-ray was read as clear, she has no respiratory distress. Will admit for rehydration and Covid observation. Transfer labs: WBC 3.4, hemoglobin 11.4, hematocrit 33.2, platelets 142. UA is negative. Sodium 129, potassium 4.1 glucose 263, CO2 22 anion gap, 14, creatinine 0.92, LFTs normal. Troponin less than 0.05. INR 1.1. CPK 234. Roland icylate level less than 4. Acetaminophen level 3.6. Ammonia 4. TSH 1.4. D- dimer 320. 04/27/20 17:56 Case discussed with Tameka De León, hospitalist, who who will observation admit patient. Departure - Departure Clinical Impression: COVID-19, Hyponatremia Altered mental status Qualifiers: Altered mental status type: unspecified Qualified Code(s): R41.82 - Altered mental status, unspecified Time of Disposition: 17:52 Disposition: Admit Patient Condition: Fair Departure Forms: ED Discharge - Pt. Copy, Patient Portal Self Enrollment Home Medications: Ambulatory Orders Carvedilol [Coreg] 25 mg PO BID 09/02/12 Lisinopril 40 mg PO BID 09/02/12 Omeprazole [Prilosec] 20 mg PO BID 09/02/12 Aspirin [Aspirin EC Low Dose] 81 mg PO DAILY 09/20/16 Insulin Degludec [Tresiba Flextouch] 32 unit SC BEDTIME 06/28/18 Potassium Gluconate [Potassium] 99 mg PO DAILY 06/28/18 amLODIPine BESYLATE [Norvasc] 10 mg PO DAILY 06/28/18 Hydrocodone-Acetaminophen [[place] 5-325 mg] 1 tab PO Q6H 01/03/19 Cholecalciferol [Vitamin D3] 400 unit PO DAILY 02/15/19 Meloxicam 15 mg PO DAILY 02/15/19 Ranitidine HCl 300 mg PO DAILY 02/15/19 Decision To Admit - Decistion To Admit Decision to Admit Reason: Admit from ER Decision to Admit Date: 04/27/20 Decision to Admit Time: 17:52
[2020-04-27] MEDS ORDERED: SODIUM CHLORIDE 0.9% 1000ML 1,000 ML IVS PRN (17:49)
[2020-04-27] MEDS ORDERED: ENOXAPARIN SODIUM 80 MG/0.8 ML SYG SUBCU ONE (17:59)
--- NOTE | 2020-04-27 19:09 | HP ---
SUPERVISING PHYSICIAN: Ingrid Mccoy MD CHIEF COMPLAINT: "I fall at home." HISTORY OF PRESENT ILLNESS: This is a 79-year-old female patient who actually was in the [facility] after a fall at home. She has had extreme weakness over the last few days. She lives at home and was found down on the floor by her sitters. They were unsure how long she was down on the floor at home, but it was estimated between 1 to 3 hours. She had complaints of neck pain. She had a full workup in [place]. Her CT of the head, CT of the cervical spine and plain pelvis were negative for any acute trauma. She also tested positive for COVID-19. There were also reports that she had altered mental status from her baseline. She was actually transferred from the [facility] to our Emergency Room. Her chest x-ray showed no acute cardiopulmonary process. Her labs from the [facility] are in her chart and can be reviewed, but were basically unremarkable. She was placed in observation in the hospital due to altered mental status. PAST MEDICAL HISTORY: 1. Hypertension. 2. Diabetes mellitus, type 2. 3. Chronic obstructive pulmonary disease. 4. Chronic opioid use due to chronic back pain. PAST SURGICAL HISTORY: 1. Left hip fracture repair. 2. Hysterectomy. OUTPATIENT MEDICATIONS: Per the EMR and awaiting verification. ALLERGIES: CODEINE, SULFA, PREDNISOLONE, HYDROCORTISONE. FAMILY HISTORY: Noncontributory. SOCIAL HISTORY: She lives in [place] and lives alone with sitters. She has smoked for many, many years, but denies any ETOH or illicit drug use. REVIEW OF SYSTEMS: Negative except as per history of present illness. PHYSICAL EXAMINATION: VITAL SIGNS: Temperature 98.6, heart rate 64, blood pressure 155/70, respiratory rate 16, O2 saturation 98% on room air. GENERAL: This is a 79-year-old female patient lying in her hospital bed. She is in no acute distress. HEENT: Normocephalic, atraumatic. Pupils are equal and reactive. Oropharynx is clear. NECK: Supple with full range of motion. RESPIRATORY: Essentially clear to auscultation bilaterally. CARDIOVASCULAR: Regular rate and rhythm. GASTROINTESTINAL: Abdomen is soft, nondistended, nontender. Bowel sounds are positive. NEUROLOGIC: Awake and alert to person only. SKIN: [place], warm and dry. LABORATORY: Her AM labs showed WBC 2.8, hemoglobin 10.5, hematocrit 32.2. She has 12 bands. D-dimer 749. Sodium 131, potassium 3.6, chloride 101, carbon dioxide 20, glucose 230, serum osmolality 269.7, calcium 7.9. Troponin less than 0.02. Triglycerides high at 265, but otherwise unremarkable lipid panel. TSH 0.91. IMPRESSION: 1. COVID-19 pneumonitis. 2. Bandemia of unknown etiology. 3. Altered mental status, may be secondary to infection as well as COVID. 4. Hypertension. 5. Chronic obstructive pulmonary disease with mild exacerbation in a current smoker. 6. Diabetes mellitus, type 2. PLAN: The patient had recently been placed in observation for altered mental status as her initial COVID labs were unremarkable and she had a clear chest x- ray. Her home medications were restarted and her neuro status was monitored. This morning, she did have bandemia on her CBC and I am not sure where her infection was as the patient is a poor historian. She was started on COVID guidelines including azithromycin, Rocephin, Remdesivir and Lovenox. She was not given any Decadron due to her allergy to steroids. CT of the chest will be ordered and she has also been put on sliding scale insulin per protocol. In addition to her antibiotics for COVID, I will also place her on vancomycin for broad spectrum coverage. We will continue to monitor her neuro status closely. I will also do a physical therapy consult. We will monitor the patient and treat as needed. #[id number] [facility]
[2020-04-27] MEDS ORDERED: SODIUM CHLORIDE 0.9% (FLUSH) 10 ML SYG IV PRN (19:22)
[2020-04-27] MEDS ORDERED: GLUCAGON INJ 1 MG VIAL SUBCU PRN (19:25)
[2020-04-27] MEDS ORDERED: DEXTROSE 50% 25 GM/50 ML SYG IV PRN (19:25)
[2020-04-27] MEDS: IV SET AND CAP CHANGE INJ INJ SCH (20:16)
[2020-04-27] MEDS: INSULIN LISPRO 100 UNITS/ML PEN SUBCU SCH (21:29)
[2020-04-27] MEDS: SODIUM CHLORIDE 0.9% (FLUSH) 10 ML SYG IV SCH (21:43)
[2020-04-28] MEDS ORDERED: MAGNESIUM HYDROXIDE 30 ML UD PO PRN (03:59)
[2020-04-28] MEDS: ACETAMINOPHEN 325 MG TAB PO PRN ×2 (04:18→22:57)
[2020-04-28] MEDS ORDERED: PANTOPRAZOLE SODIUM IV 40 MG VIAL IV SCH (06:30)
--- NOTE | 2020-04-28 07:38 | RAD ---
EXAM: Single view chest. INDICATION: Covid. COMPARISON: Chest x-ray: 06/28/2018. FINDINGS: Cardiac silhouette: Unremarkable. Suri: Unremarkable. Lobar consolidation: None. Pleural effusion: None. Pneumothorax: None. Other: None. Bones: Unremarkable. Other: None. IMPRESSION: 1. No acute cardiopulmonary process. Electronically signed by: Chip Parham MD 04/28/2020 7:36 AM CARDIOVASCULAR OR NURSE
[2020-04-28] MEDS: INSULIN LISPRO 100 UNITS/ML PEN SUBCU SCH ×4 (08:00→20:56)
[2020-04-28] MEDS: SODIUM CHLORIDE 0.9% (FLUSH) 10 ML SYG IV SCH ×2 (09:41→21:00)
[2020-04-28] MEDS ORDERED: REMDESIVIR 200 MG in SODIUM CHLORIDE 0.9% 250ML 250 ML IVPB ONE (14:08)
[2020-04-28] MEDS ORDERED: VANCOMYCIN PER PHARMACY IVPB SCH (14:30)
--- NOTE | 2020-04-28 16:01 | CT ---
EXAM DESCRIPTION: Chest w/o Contrast CLINICAL HISTORY: 79 years Female, covid COMPARISON: 15 December 2019 TECHNIQUE: Transaxial images were obtained without intravenous contrast media. Sagittal and coronal reconstruction was performed.This exam was performed according to our departmental dose-optimization program, which includes automated exposure control, adjustment of the mA and/or kV according to patient size and/or use of iterative reconstruction technique. FINDINGS: The thyroid is normal in appearance. No pathologic axillary adenopathy is observed. No hilar or mediastinal adenopathy is seen. Coronary artery calcification is noted. No pleural fluid is seen. No adrenal masses are detected. Exam is minimally degraded by respiratory motion. Very minimal right lower lobe and left lower lobe peripheral groundglass infiltrate is observed. Degenerative changes are seen in the thoracic spine. There is also minimal groundglass infiltrate above the aortic arch in the left upper lobe. IMPRESSION: Minimal groundglass infiltrate is observed in both lungs and may represent early evidence of Covid pneumonia. Electronically signed by: Ta Loomis MD 04/28/2020 4:00 PM [facility]
[2020-04-28] MEDS: cefTRIAXone SODIUM 1 GM in SODIUM CHL 0.9% 50ML MIN-BAG+ 50 ML IVPB SCH (19:22)
[2020-04-28] MEDS ORDERED: LISINOPRIL 5 MG TAB ONE (20:47)
[2020-04-28] MEDS ORDERED: CARVEDILOL 12.5 MG TAB ONE (20:47)
[2020-04-28] MEDS: NON-FORMULARY MEDICATION 1 EA MIS (Lisinopril [Lisinopril] 40 MG) PO SCH (20:50)
[2020-04-28] MEDS: BIFIDOBACTERIUM INFANTIS 4 MG CAP PO SCH (20:51)
[2020-04-28] MEDS: NON-FORMULARY MEDICATION 1 EA MIS (Carvedilol [Coreg] 25 MG) PO SCH (20:51)
[2020-04-28] MEDS: ENOXAPARIN SODIUM 40 MG/0.4 ML SYG SUBCU SCH (20:51)
[2020-04-28] MEDS: GABAPENTIN 300 MG CAP PO SCH (20:51)
[2020-04-28] MEDS: AZITHROMYCIN IV 500 MG in SODIUM CHLORIDE 0.9% 250ML 250 ML IVPB SCH (22:13)
[2020-04-28] MEDS ORDERED: diphenhydrAMINE HCL 25 MG CAP PO PRN (22:35)
[2020-04-28] MEDS: VANCOMYCIN HCL INJ 750 MG in SODIUM CHLORIDE 0.9% 250ML 250 ML IVPB SCH (23:19)
[2020-04-29] MEDS ORDERED: PANTOPRAZOLE SODIUM TAB 40 MG PO ONE (03:10)
[2020-04-29] MEDS: PANTOPRAZOLE SODIUM TAB 40 MG PO SCH (05:46)
[2020-04-29] MEDS: INSULIN LISPRO 100 UNITS/ML PEN SUBCU SCH ×4 (07:30→20:16)
[2020-04-29] MEDS: VANCOMYCIN HCL INJ 750 MG in SODIUM CHLORIDE 0.9% 250ML 250 ML IVPB SCH ×2 (07:40→20:03)
[2020-04-29] MEDS ORDERED: CARVEDILOL 12.5 MG TAB ONE ×2 (09:13→19:44)
[2020-04-29] MEDS ORDERED: FUROSEMIDE 40 MG TAB ONE (09:13)
[2020-04-29] MEDS ORDERED: POTASSIUM CHLORIDE 10 MEQ TAB PO ONE (09:14)
[2020-04-29] MEDS ORDERED: LISINOPRIL 10 MG TAB ONE ×2 (09:14→19:45)
[2020-04-29] MEDS: NON-FORMULARY MEDICATION 1 EA MIS (Lisinopril [Lisinopril] 40 MG) PO SCH ×2 (09:16→20:07)
[2020-04-29] MEDS: NON-FORMULARY MEDICATION 1 EA MIS (Carvedilol [Coreg] 25 MG) PO SCH ×2 (09:34→20:07)
[2020-04-29] MEDS: GABAPENTIN 300 MG CAP PO SCH ×3 (09:34→20:08)
[2020-04-29] MEDS: BIFIDOBACTERIUM INFANTIS 4 MG CAP PO SCH ×2 (09:34→20:08)
[2020-04-29] MEDS: NON-FORMULARY MEDICATION 1 EA MIS (Furosemide [Furosemide] 20 MG) PO SCH (09:35)
[2020-04-29] MEDS: ASPIRIN (ENTERIC COATED) 81 MG TAB PO SCH (09:35)
[2020-04-29] MEDS: amLODIPine BESYLATE 5 MG TAB PO SCH (09:36)
[2020-04-29] MEDS: NON-FORMULARY MEDICATION 1 EA MIS (Potassium Chloride [Potassium Chloride Er] 10 MEQ) PO SCH (09:36)
[2020-04-29] MEDS: SODIUM CHLORIDE 0.9% (FLUSH) 10 ML SYG IV SCH ×2 (09:36→20:08)
[2020-04-29] MEDS ORDERED: GABAPENTIN 300 MG CAP ONE ×2 (14:17→19:46)
[2020-04-29] MEDS: cefTRIAXone SODIUM 1 GM in SODIUM CHL 0.9% 50ML MIN-BAG+ 50 ML IVPB SCH (15:57)
[2020-04-29] MEDS: ACETAMINOPHEN 325 MG TAB PO PRN (16:10)
[2020-04-29] MEDS: AZITHROMYCIN IV 500 MG in SODIUM CHLORIDE 0.9% 250ML 250 ML IVPB SCH (17:00)
[2020-04-29] MEDS: ENOXAPARIN SODIUM 40 MG/0.4 ML SYG SUBCU SCH (20:07)
[2020-04-30] MEDS: PANTOPRAZOLE SODIUM TAB 40 MG PO SCH (05:39)
--- NOTE | 2020-04-30 07:08 | RAD ---
EXAM: XR CHEST 1 VIEW HISTORY: 79 years, Female, covid TECHNIQUE: Chest,1 View COMPARISON: April 28, 2020 FINDINGS: Lungs: No consolidation. Pleura: No apparent pneumothorax or effusion. Mediastinum: No cardiomegaly. Bones: No acute findings. IMPRESSION: No apparent acute abnormality. Electronically signed by: Yin Shepherd MD 04/30/2020 7:06 AM [facility]
[2020-04-30] MEDS: INSULIN LISPRO 100 UNITS/ML PEN SUBCU SCH ×4 (08:12→20:30)
[2020-04-30] MEDS ORDERED: ASPIRIN (ENTERIC COATED) 81 MG TAB PO ONE (08:51)
[2020-04-30] MEDS ORDERED: amLODIPine BESYLATE 5 MG TAB ONE (08:51)
[2020-04-30] MEDS ORDERED: LISINOPRIL 10 MG TAB ONE ×2 (08:52→19:20)
[2020-04-30] MEDS ORDERED: CARVEDILOL 12.5 MG TAB ONE ×2 (08:52→19:20)
[2020-04-30] MEDS ORDERED: POTASSIUM CHLORIDE 10 MEQ TAB PO ONE (08:52)
[2020-04-30] MEDS ORDERED: FUROSEMIDE 40 MG TAB ONE (08:52)
[2020-04-30] MEDS ORDERED: GABAPENTIN 300 MG CAP ONE ×3 (08:52→19:20)
[2020-04-30] MEDS: SODIUM CHLORIDE 0.9% (FLUSH) 10 ML SYG IV SCH ×2 (10:25→20:22)
[2020-04-30] MEDS: NON-FORMULARY MEDICATION 1 EA MIS (Carvedilol [Coreg] 25 MG) PO SCH ×2 (10:25→20:21)
[2020-04-30] MEDS: NON-FORMULARY MEDICATION 1 EA MIS (Lisinopril [Lisinopril] 40 MG) PO SCH ×2 (10:25→20:21)
[2020-04-30] MEDS: ASPIRIN (ENTERIC COATED) 81 MG TAB PO SCH (10:25)
[2020-04-30] MEDS: GABAPENTIN 300 MG CAP PO SCH ×3 (10:25→20:22)
[2020-04-30] MEDS: NON-FORMULARY MEDICATION 1 EA MIS (Potassium Chloride [Potassium Chloride Er] 10 MEQ) PO SCH (10:25)
[2020-04-30] MEDS: BIFIDOBACTERIUM INFANTIS 4 MG CAP PO SCH ×2 (10:25→20:21)
[2020-04-30] MEDS: NON-FORMULARY MEDICATION 1 EA MIS (Furosemide [Furosemide] 20 MG) PO SCH (10:25)
[2020-04-30] MEDS: VANCOMYCIN HCL INJ 750 MG in SODIUM CHLORIDE 0.9% 250ML 250 ML IVPB SCH ×2 (10:25→20:20)
[2020-04-30] MEDS: amLODIPine BESYLATE 5 MG TAB PO SCH (10:25)
[2020-04-30] MEDS: AZITHROMYCIN IV 500 MG in SODIUM CHLORIDE 0.9% 250ML 250 ML IVPB SCH (17:07)
[2020-04-30] MEDS: cefTRIAXone SODIUM 1 GM in SODIUM CHL 0.9% 50ML MIN-BAG+ 50 ML IVPB SCH (17:07)
--- NOTE | 2020-04-30 19:03 | PN ---
SUPERVISING PHYSICIAN: Neel Mccoy MD DATE: 04/30/20 SUBJECTIVE: The patient is sitting up in bed. She is more alert today, although she has difficulty answering any of her health questions. She did say she has home health but she did not know what company and she did say that she has sitters until 1 o'clock. She denies chest pain, nausea or vomiting. OBJECTIVE: VITAL SIGNS: Temperature 97.8, heart rate 68, blood pressure 112/71, respiratory rate 16, oxygen saturation 96% on room air. RESPIRATORY: Diminished at the bases but otherwise clear to auscultation. CARDIAC: Regular rate and rhythm. NEUROLOGICAL: She is awake, alert, and oriented to person and place. She has some difficulty answering some more complicated questions. LABORATORY: WBC 2.4 with hemoglobin 11.1, hematocrit 33.5. D-dimer 841. Sodium 132, calcium 7.8. Troponin less than 0.02. C-reactive protein 1.3. Blood cultures show no growth at 48 hours. RADIOLOGY: Chest x-ray shows no apparent acute abnormality. ASSESSMENT: 1. COVID-19 pneumonitis. 2. Bandemia of unknown etiology. 3. Altered mental status, may be secondary to infection as well as COVID. 4. Hypertension. 5. Chronic obstructive pulmonary disease with mild exacerbation in a current smoker. 6. Diabetes mellitus, type 2. PLAN: We will continue present supportive care. I have consulted Record Keeper for discharge planning as physical therapy is concerned that the patient is unsafe to go home without more care. She does have sitters but we are not sure the exact status of her home situation. She also has a Carson catheter and I have ordered bladder training for in the morning and hopefully we can have that Carson catheter discontinued prior to her discharge. I have ordered routine lab for in the morning. There will be no chest x-ray. We will follow and treat as needed. [id number] [facility]
--- NOTE | 2020-04-30 19:17 | PN ---
SUPERVISING PHYSICIAN: Neel Mccoy M.D. DATE: 04/29/20 SUBJECTIVE: The patient is lying in bed. She is somewhat confused today. She is unable to answer anything but simple yes/no questions. Nursing reports that she has improved as far as clinically from a COVID standpoint, but her effusion is still there and we are not sure what her baseline is. OBJECTIVE: VITAL SIGNS: Temperature 98.5, heart rate 87, blood pressure 183/73, respiratory rate 19, O2 saturation 95% on room air. RESPIRATORY: Essentially clear to auscultation bilaterally. CARDIAC: Regular rate and rhythm. NEUROLOGIC: She is awake and alert. She is oriented to person only. LABORATORY: WBCs are 3,300 with hemoglobin 11.7, hematocrit 35.2. D-dimer is 894. Sodium 130, potassium 3.6, chloride 99, BUN 14, creatinine 0.83, calcium 7.9, magnesium 2.2, creatinine kinase 216, C reactive protein 2. Preliminary blood cultures show no growth after 24 hours. All other labs and films have been reviewed via the EMR. ASSESSMENT: 1. COVID-19 pneumonitis. 2. Bandemia of unknown etiology. 3. Altered mental status that may be secondary to infection as well as COVID- 19. 4. Hypertension. 5. Chronic obstructive pulmonary disease with mild exacerbation in a current smoker. 6. Diabetes mellitus, type 2. PLAN: We will continue with the COVID guidelines, including medications and testing. I will get Physical Therapy to evaluate her tomorrow to make sure she is safe to go home. My understanding is that she lives alone with a morning electric arc furnace operator and home health. I am not sure she will be safe to go home in those conditions. I also do not know what her baseline mental status is. Hopefully we can explore that. Will continue to monitor and treat as needed. [facility][id number] [facility]
[2020-04-30] MEDS ORDERED: diphenhydrAMINE HCL 25 MG CAP ONE (19:31)
[2020-04-30] MEDS: ENOXAPARIN SODIUM 40 MG/0.4 ML SYG SUBCU SCH (20:21)
[2020-04-30] MEDS: IV SET AND CAP CHANGE INJ INJ SCH (20:21)
[2020-05-01] MEDS: PANTOPRAZOLE SODIUM TAB 40 MG PO SCH (06:15)
[2020-05-01] MEDS: NON-FORMULARY MEDICATION 1 EA MIS (Lisinopril [Lisinopril] 40 MG) PO SCH ×3 (06:26→20:07)
[2020-05-01] MEDS: INSULIN LISPRO 100 UNITS/ML PEN SUBCU SCH ×4 (08:03→19:59)
[2020-05-01] MEDS ORDERED: ASPIRIN (ENTERIC COATED) 81 MG TAB PO ONE (08:12)
[2020-05-01] MEDS ORDERED: amLODIPine BESYLATE 5 MG TAB ONE (08:12)
[2020-05-01] MEDS ORDERED: FUROSEMIDE 40 MG TAB ONE (08:12)
[2020-05-01] MEDS ORDERED: GABAPENTIN 300 MG CAP ONE ×3 (08:13→19:09)
[2020-05-01] MEDS ORDERED: POTASSIUM CHLORIDE 10 MEQ TAB PO ONE (08:13)
[2020-05-01] MEDS ORDERED: LISINOPRIL 10 MG TAB ONE ×2 (08:13→19:09)
[2020-05-01] MEDS ORDERED: CARVEDILOL 12.5 MG TAB ONE ×2 (08:13→19:09)
[2020-05-01] MEDS: VANCOMYCIN HCL INJ 750 MG in SODIUM CHLORIDE 0.9% 250ML 250 ML IVPB SCH (08:52)
[2020-05-01] MEDS: BIFIDOBACTERIUM INFANTIS 4 MG CAP PO SCH ×2 (08:53→20:07)
[2020-05-01] MEDS: amLODIPine BESYLATE 5 MG TAB PO SCH (08:53)
[2020-05-01] MEDS: NON-FORMULARY MEDICATION 1 EA MIS (Carvedilol [Coreg] 25 MG) PO SCH ×2 (08:54→20:07)
[2020-05-01] MEDS: ASPIRIN (ENTERIC COATED) 81 MG TAB PO SCH (08:55)
[2020-05-01] MEDS: NON-FORMULARY MEDICATION 1 EA MIS (Potassium Chloride [Potassium Chloride Er] 10 MEQ) PO SCH (08:55)
[2020-05-01] MEDS: NON-FORMULARY MEDICATION 1 EA MIS (Furosemide [Furosemide] 20 MG) PO SCH (08:55)
[2020-05-01] MEDS: GABAPENTIN 300 MG CAP PO SCH ×3 (08:56→20:07)
[2020-05-01] MEDS: SODIUM CHLORIDE 0.9% (FLUSH) 10 ML SYG IV SCH ×2 (08:56→20:07)
[2020-05-01] MEDS: cefTRIAXone SODIUM 1 GM in SODIUM CHL 0.9% 50ML MIN-BAG+ 50 ML IVPB SCH (15:23)
--- NOTE | 2020-05-01 18:57 | PN ---
SUPERVISING PHYSICIAN: Neel Mccoy M.D. DATE: 05/01/20 SUBJECTIVE: The patient is resting in bed. Does not have any complaints. She is alert. OBJECTIVE: VITAL SIGNS: Temperature 98.3, pulse 69, blood pressure 136/70, respirations 20, satting 94% on room air. GENERAL: The patient is resting comfortably. Does not appear to be in any distress. CHEST: Lung sounds were a little diminished towards the bases, but fairly clear. HEART: Regular rate and rhythm. ABDOMEN: Soft, non-tender. Positive bowel sounds. EXTREMITIES: Without any edema. NEUROLOGIC: She is alert and oriented times three. LABORATORY: White count 3,300, hemoglobin 10.4, hematocrit 31.0, platelet count 123,000. RBC indices indicated a microcytic hypochromic anemia. A left shift was not present. Coagulation: D-dimer is down to 770. Chemistry: Sodium 133, potassium 3.7. Blood sugars range between 189 and 316. Calcium 7.7 corrected to 7.9 for albumin of 3.1. Magnesium 2.2. MICROBIOLOGY: Blood cultures remain negative at 3 days. RADIOLOGY: No repeat chest x-ray today. A review of chest x-ray yesterday showed the lungs to be clear with no consolidation present. ASSESSMENT: 1. COVID-19 pneumonitis. 2. Chronic obstructive pulmonary disease with exacerbation in a current smoker secondary to #1. 3. Diabetes mellitus type 2. 4. Hypertension. PLAN: The plan at this point is to have a surgical consultation tomorrow to figure out what is the safest way to get the patient home. Her recommendations are that she have increased supervision along with home health and physical therapy. I have requested the [place] to be discontinued. Will continue to follow labs as needed. Her chest x-ray remains stable. Hopefully be able to discharge tomorrow as soon as arrangements are made for her to safely discharge home. Until then will continue to monitor and treat as needed. #[id number] [facility]
[2020-05-01] MEDS: AZITHROMYCIN IV 500 MG in SODIUM CHLORIDE 0.9% 250ML 250 ML IVPB SCH (19:04)
[2020-05-01] MEDS: ENOXAPARIN SODIUM 40 MG/0.4 ML SYG SUBCU SCH (20:07)
[2020-05-02 03:42] VITALS: O2SAT 94
[2020-05-02] MEDS: PANTOPRAZOLE SODIUM TAB 40 MG PO SCH (06:00)
[2020-05-02] MEDS ORDERED: ASPIRIN (ENTERIC COATED) 81 MG TAB PO ONE (07:32)
[2020-05-02] MEDS ORDERED: amLODIPine BESYLATE 5 MG TAB ONE (07:32)
[2020-05-02] MEDS ORDERED: GABAPENTIN 300 MG CAP ONE (07:33)
[2020-05-02] MEDS ORDERED: FUROSEMIDE 40 MG TAB ONE (07:33)
[2020-05-02] MEDS ORDERED: POTASSIUM CHLORIDE 10 MEQ TAB PO ONE (07:33)
[2020-05-02] MEDS ORDERED: CARVEDILOL 12.5 MG TAB ONE (07:33)
[2020-05-02] MEDS: INSULIN LISPRO 100 UNITS/ML PEN SUBCU SCH ×2 (09:59→14:10)
[2020-05-02] MEDS: BIFIDOBACTERIUM INFANTIS 4 MG CAP PO SCH (10:00)
[2020-05-02] MEDS: ASPIRIN (ENTERIC COATED) 81 MG TAB PO SCH (10:00)
[2020-05-02] MEDS: NON-FORMULARY MEDICATION 1 EA MIS (Carvedilol [Coreg] 25 MG) PO SCH (10:00)
[2020-05-02] MEDS: amLODIPine BESYLATE 5 MG TAB PO SCH (10:00)
[2020-05-02] MEDS: GABAPENTIN 300 MG CAP PO SCH (10:00)
[2020-05-02] MEDS: NON-FORMULARY MEDICATION 1 EA MIS (Potassium Chloride [Potassium Chloride Er] 10 MEQ) PO SCH (10:01)
[2020-05-02] MEDS: NON-FORMULARY MEDICATION 1 EA MIS (Furosemide [Furosemide] 20 MG) PO SCH (10:01)
[2020-05-02] MEDS: SODIUM CHLORIDE 0.9% (FLUSH) 10 ML SYG IV SCH (10:01)
[2020-05-02] MEDS ORDERED: LISINOPRIL 10 MG TAB PO SCH (10:45)
[2020-05-02] MEDS: NON-FORMULARY MEDICATION 1 EA MIS (Lisinopril [Lisinopril] 40 MG) PO SCH (11:17)
[2020-05-02 15:11] VITALS: BP 145/57; TEMP 98.7
[2020-05-02] MEDS ORDERED: CARVEDILOL 12.5 MG TAB PO SCH (21:00)
[2020-05-03] MEDS ORDERED: FUROSEMIDE 40 MG TAB PO SCH (09:00)
[2020-05-03] MEDS ORDERED: POTASSIUM CHLORIDE 10 MEQ TAB PO SCH (09:00)
--- NOTE | 2020-05-03 19:21 | DS ---
SUPERVISING PHYSICIAN: Abraham Kim M.D. ADMISSION DIAGNOSIS: 1. COVID-19 pneumonitis. 2. Bandemia of unknown etiology. 3. Altered mental status, may be secondary to infection as well as COVID. 4. Hypertension. 5. Chronic obstructive pulmonary disease with mild exacerbation in a current smoker. 6. Diabetes mellitus, type 2. DISCHARGE DIAGNOSIS: 1. COVID-19 pneumonitis. 2. Chronic obstructive pulmonary disease with exacerbation in a current smoker secondary to #1. 3. Diabetes mellitus type 2. 4. Hypertension. REASON FOR HOSPITALIZATION: This is a 79-year-old female patient who actually was in the [facility] after a fall at home. She has had extreme weakness over the last few days. She lives at home and was found down on the floor by her sitters. They were unsure how long she was down on the floor at home, but it was estimated between 1 to 3 hours. She had complaints of neck pain. She had a full workup in [place]. Her CT of the head, CT of the cervical spine and plain pelvis were negative for any acute trauma. She also tested positive for COVID-19. There were also reports that she had altered mental status from her baseline. She was actually transferred from the [facility] to our Emergency Room. Her chest x-ray showed no acute cardiopulmonary process. Her labs from the [facility] are in her chart and can be reviewed, but were basically unremarkable. She was placed in observation in the hospital due to altered mental status. LABORATORY STUDIES: White count on discharge was 3,300, hemoglobin 10.4, hematocrit 31.0, platelet count 123,000. Differential shows to be without a left shift. Coagulation studies showed her D-dimer was down to 770. Chemistries are showing stable with sodium 133, potassium 3.7, BUN 20, creatinine 0.95. Blood sugars are ranging 180s to 200s, calcium 7.7 corrected for an albumin of 3.1 to 8.0 with magnesium 2.2. RADIOLOGY: Final chest x-ray showed no apparent acute abnormalities. MICROBIOLOGY: Blood cultures are showing negative at 5 days. HOSPITAL COURSE: Ms. Cavazos was admitted for treatment of COVID pneumonitis. She was treated with Lovenox, Remdesivir, vancomycin, azithromycin and Rocephin. Clinically she showed good improvement. She was maintaining her O2 saturations without any supplemental oxygen. It was felt that she had improved well enough to discharge home to continue with outpatient management. On discharge, she was showing 94% to 97% saturations on room air. Blood pressure was 145/57, heart rate 72. She was afebrile at 98.7. PLAN: The patient was discharged home with home health and sitters. She has [facility] and caregivers through [facility]. She was instructed to followup with her primary care provider, Dr. Odonnell, in [place], [place]. She is to call his office in 7 days or sooner. She is to resume her usual diabetic diet and increase activity as tolerated. Continue with antibiotic coverage and further treatment as discharge with prescriptions to include: 1. Align 4 mg twice daily for at least 10 days. 2. Omnicef 300 mg twice daily, #12. 3. Albuterol inhaler as tolerated. She was not on any steroids due to an allergy reported to steroids. Again, she did clinically well and on discharge condition was stable and improved. DISPOSITION: The patient was discharged home to caregivers and home health. #[id number] [facility]
== END 2020-05-02 13:30 | disposition home health service (06) | DRG 177 ==
LOC: ER 16:26 → OBSVTOIN 19:08 → MS 19:08
PROVIDERS: ADMIT Nurse Practitioner Acute Care; ATTEND Nurse Practitioner Family
PROC: XW033E5 Introduction of Remdesivir Anti-infective into Peripheral Vein, Percutaneous Approach, New Technology Group 5 (ICD-10-PCS; principal; 2020-04-29)
DX: U07.1 COVID-19 (principal); J12.82 Pneumonia due to coronavirus disease 2019; E87.1 Hypo-osmolality and hyponatremia; J44.1 Chronic obstructive pulmonary disease with (acute) exacerbation; J44.0 Chronic obstructive pulmonary disease with (acute) lower respiratory infection; I10 Essential (primary) hypertension; E11.9 Type 2 diabetes mellitus without complications; J44.9 Chronic obstructive pulmonary disease, unspecified; R41.82 Altered mental status, unspecified; G89.29 Other chronic pain; M54.9 Dorsalgia, unspecified; F17.210 Nicotine dependence, cigarettes, uncomplicated; Z88.2 Allergy status to sulfonamides; Z88.5 Allergy status to narcotic agent